=== PATIENT | male | born 1970 | race Caucasian/White ===

== ENCOUNTER 2021-07-31 01:55 | Emergency (ER) | payer OTHER ==
[2021-07-31 02:03] VITALS: TEMP 99.4
[2021-07-31 02:42] LABS: Basophils % (A) 0 %; Eosinophils % (A) 0 %; HCT 38.6 % (39.0-53.0); HGB 14.3 gm/dL (13.0-17.5); Hyperchromasia Slight; Lymphocytes # (A) 0.4 k/uL (1.0-4.8); Lymphocytes % (A) 20 %; MCHC 36.9 g/dL (31.0-37.0); MCV 91.9 fL (80.0-100.0); Mean Platelet Volume 7.3; Monocytes # (A) 0.1 k/uL (0-1.0); Monocytes % (A) 5 %; Neutrophils # (A) 1.5 k/uL (1.3-7.7); Neutrophils % (A) 73 %; RDW 12.4 % (11.5-15.5)
--- NOTE | 2021-07-31 02:43 | ED ---
Chest Pain HPI - General Chief Complaint: Chest Pain Stated Complaint: Chest tightness Time Seen by Provider: 07/31/21 02:02 Source: patient, RN notes reviewed, old records reviewed Mode of arrival: ambulatory - History of Present Illness Initial Comments: This is a 50-year-old male to the emergency room today. Patient presents today for evaluation regards to chest pain. Chest pain anterior chest 3 days radiating to back. No known travel history or sick contacts. No fevers cough or congestion. No other complaints no prior history of chest pain, patient does have history of high blood pressure. MD Complaint: chest pain -: days(s) (3) Pain Location: substernal Pain Radiation: back Severity: moderate Severity scale (1-10): 4 Quality: tightness, aching Improves With: nothing Worsens With: nothing Anginal Symptoms: nausea, dyspnea Other Symptoms: palpitations Treatments Prior to Arrival: none - Related Data Home Medications Medication Instructions Recorded Confirmed Ascorbic Acid [Vitamin C] 1,000 mg PO DAILY 08/02/21 08/02/21 Echinacea 500 mg PO DAILY 08/02/21 08/02/21 Multivit-Min/FA/Lycopen/Lutein 1 tab PO DAILY 08/02/21 08/02/21 [Centrum Silver Men Tablet] Zinc 50 mg PO DAILY 08/02/21 08/02/21 Allergies Allergy/AdvReac Type Severity Reaction Status Date / Time No Known Allergies Allergy Verified 08/02/21 18:19 Review of Systems ROS Statement: Those systems with pertinent positive or pertinent negative responses have been documented in the HPI. ROS Other: All systems not noted in ROS Statement are negative. EKG Findings - EKG Comments: EKG Findings:: EKG shows sinus rhythm 85 FL 170 QRS 96 QTc 426 Past Medical History Past Medical History: Hypertension History of Any Multi-Drug Resistant Organisms: None Reported Past Surgical History: No Surgical Hx Reported Past Psychological History: No Psychological Hx Reported Smoking Status: Never smoker Past Alcohol Use History: Occasional Past Drug Use History: None Reported General Exam General appearance: alert, in no apparent distress Head exam: Present: atraumatic, normocephalic, normal inspection Eye exam: Present: normal appearance, PERRL, EOMI. Absent: scleral icterus, conjunctival injection, periorbital swelling ENT exam: Present: normal exam, mucous membranes moist Neck exam: Present: normal inspection. Absent: tenderness, meningismus, lymphadenopathy Respiratory exam: Present: normal lung sounds bilaterally. Absent: respiratory distress, wheezes, rales, rhonchi, stridor Cardiovascular Exam: Present: regular rate, normal rhythm, normal heart sounds. Absent: systolic murmur, diastolic murmur, rubs, gallop, clicks GI/Abdominal exam: Present: soft, normal bowel sounds. Absent: distended, tenderness, guarding, rebound, rigid Extremities exam: Present: normal inspection, full ROM, normal capillary refill. Absent: tenderness, pedal edema, joint swelling, calf tenderness Back exam: Present: normal inspection Neurological exam: Present: alert, oriented X3, CN II-XII intact Psychiatric exam: Present: normal affect, normal mood Skin exam: Present: warm, dry, intact, normal color. Absent: rash Course Vital Signs 07/31/21 07/31/21 07/31/21 01:57 02:40 04:26 Temperature 99.4 F Pulse Rate 87 73 72 Respiratory 20 16 16 Rate Blood Pressure 143/89 128/60 O2 Sat by Pulse 96 97 97 Oximetry - Reevaluation(s) Reevaluation #1: 07/31/21 02:43 Medical record is reviewed Reevaluation #2: Patient symptoms are significantly improved in the emergency department Patient informed results and questions answered Chest Pain MDM - MDM 50 male with atypical chest pain mild pancreatitis with no abdominal pain. Patient is able to tolerate liquids and fluids here in the ER and can be discharged home Disposition Clinical Impression: Atypical chest pain, Pancreatitis, Hyponatremia Disposition: HOME SELF-CARE Condition: Good Instructions (If sedation given, give patient instructions): Chest Pain (ED), Pancreatitis (ED), Hyponatremia (ED) Is patient prescribed a controlled substance at d/c from ED?: No Referrals: None,Stated [Primary Care Provider] - 1-2 days
[2021-07-31 02:44] VITALS: BP 128/60; RESP 16
[2021-07-31 02:48] LABS: INR 0.9 (<1.2); Partial Thromboplastin Time 25.6 sec (22.0-30.0); Prothrombin Time 10.1 sec (9.0-12.0)
[2021-07-31 02:50] LABS: ALT 74 U/L (4-49); AST 87 U/L (17-59); African American GFR (CKD) >90 (>60 ml/min/1.73 sqM); Albumin 4.3 g/dL (3.5-5.0); Alkaline Phosphatase 43 U/L (38-126); Anion Gap 10 mmol/L; Blood Urea Nitrogen 12 mg/dL (9-20); Calcium 9.2 mg/dL (8.4-10.2); Carbon Dioxide 21 mmol/L (22-30); Chloride 95 mmol/L (98-107); Glucose 126 mg/dL (74-99); Magnesium 1.7 mg/dL (1.6-2.3); Non-African American GFR(CKD) >90 (>60 ml/min/1.73 sqM); Potassium 3.8 mmol/L (3.5-5.1); Sodium 126 mmol/L (137-145); Total Bilirubin 0.4 mg/dL (0.2-1.3); Total Protein 6.9 g/dL (6.3-8.2)
--- NOTE | 2021-07-31 03:00 | XR ---
EXAMINATION TYPE: XR chest 2V DATE OF EXAM: 07/31/2021 COMPARISON: NONE HISTORY: Chest pain TECHNIQUE: FINDINGS: There is some mild interstitial infiltrate left lower lobe. Right lung is clear. Heart and mediastinum are normal. Diaphragm is normal. There are chest leads. Bony thorax is intact. IMPRESSION: Mild left lower lobe interstitial pneumonia.
[2021-07-31 03:14] LABS: Platelet Count 86 k/uL (150-450)
--- NOTE | 2021-07-31 03:51 | CT ---
EXAMINATION TYPE: CT angio chest DATE OF EXAM: 07/31/2021 COMPARISON: None HISTORY: chest pain. r/o PE CT DLP: 651.8 mGycm Automated exposure control for dose reduction was used. CONTRAST: Performed with IV Contrast, patient injected with 100ml mL of Isovue 370. There are 3-D post processed images. There is some patchy mild groundglass interstitial infiltrate in both lungs. There is no mediastinal adenopathy. There are no hilar masses. Thoracic aorta is intact. There is no aneurysm or dissection. There is normal contrast opacification of the pulmonary arteries. Heart size is normal. There is no p ericardial effusion. There is no pleural effusion. The bony thorax is intact. IMPRESSION: Patchy bilateral groundglass pulmonary interstitial infiltrates. No evidence of pulmonary embolism. N o suspicious pulmonary mass.
[2021-07-31 04:27] VITALS: PULSE 72
== END 2021-07-31 04:27 | disposition home or self-care (01) ==
LOC: EC 01:55
DX: K85.90 Acute pancreatitis without necrosis or infection, unspecified (principal); E87.1 Hypo-osmolality and hyponatremia; I10 Essential (primary) hypertension; R07.89 Other chest pain; R07.2 Precordial pain; R06.00 Dyspnea, unspecified; R00.2 Palpitations
CPT/HCPCS: 36415; 93005; 85379; 80053; 83690; 83735; 84484; 85025; 85610; 85730; 71046; 71275; 99285; Q9967

== ENCOUNTER 2021-08-02 16:50 | Inpatient (IN) | payer OTHER ==
[2021-08-02] MEDS: ACETAMINOPHEN TAB 325 MG TAB PO PRN ×2 (17:41→21:22)
[2021-08-02 17:42] LABS: Basophils % (A) 0 %; Eosinophils % (A) 1 %; HCT 39.2 % (39.0-53.0); HGB 14.2 gm/dL (13.0-17.5); Hyperchromasia Slight; Lymphocytes # (A) 0.3 k/uL (1.0-4.8); Lymphocytes % (A) 12 %; MCH 32.3 pg (25.0-35.0); MCHC 36.4 g/dL (31.0-37.0); MCV 88.9 fL (80.0-100.0); Mean Platelet Volume 7.3; Monocytes # (A) 0.1 k/uL (0-1.0); Monocytes % (A) 6 %; Neutrophils # (A) 2.1 k/uL (1.3-7.7); Neutrophils % (A) 80 %; Platelet Count 127 k/uL (150-450); RDW 11.5 % (11.5-15.5); WBC 2.6 k/uL (3.8-10.6)
[2021-08-02 17:55] LABS: ALT 82 U/L (4-49); AST 106 U/L (17-59); African American GFR (CKD) >90 (>60 ml/min/1.73 sqM); Albumin 4.3 g/dL (3.5-5.0); Alkaline Phosphatase 37 U/L (38-126); Anion Gap 14 mmol/L; Blood Urea Nitrogen 14 mg/dL (9-20); C Reactive Protein 8.3 mg/dL (<1.0); Calcium 8.6 mg/dL (8.4-10.2); Carbon Dioxide 19 mmol/L (22-30); Chloride 93 mmol/L (98-107); Glucose 115 mg/dL (74-99); INR 0.9 (<1.2); LDH 1240 U/L (313-618); Magnesium 2.2 mg/dL (1.6-2.3); Non-African American GFR(CKD) >90 (>60 ml/min/1.73 sqM); Partial Thromboplastin Time 25.4 sec (22.0-30.0); Potassium 3.6 mmol/L (3.5-5.1); Prothrombin Time 9.9 sec (9.0-12.0); Sodium 126 mmol/L (137-145); Total Bilirubin 0.7 mg/dL (0.2-1.3); Total Protein 7.2 g/dL (6.3-8.2)
--- NOTE | 2021-08-02 18:14 | XR ---
EXAMINATION TYPE: XR chest 1V portable DATE OF EXAM: 08/02/2021 COMPARISON: Radiograph 07/31/2021 HISTORY: Suspected COVID pneumonia. TECHNIQUE: Single frontal view of the chest is obtained. FINDINGS: The cardiomediastinal silhouette and pulmonary vasculature are within normal limits. Low lung volumes with bibasilar, left greater than right airspace opacities with air bronchograms. No large effusion or pneumothorax. IMPRESSION: Low lung volumes with bibasilar opacities which are likely on the basis of airspace dise ase.
[2021-08-02] MEDS: DEXAMETHASONE SOD PHOSPHATE 10 MG/ML 1 ML VIAL IVP SCH (18:15)
[2021-08-02] MEDS ORDERED: NALOXONE 0.4 MG/ML 1 ML VIAL IV PRN (18:28)
--- NOTE | 2021-08-02 18:36 | ED ---
General Adult HPI - General Chief complaint: Shortness of Breath Stated complaint: lOW O2 Time Seen by Provider: 08/02/21 17:13 Source: patient, RN notes reviewed, old records reviewed Mode of arrival: EMS Limitations: no limitations - History of Present Illness Initial comments: Patient is a 50-year-old male with past medical history that is unremarkable who presents emergency Department complaining of difficulty in breathing. Patient was seen at urgent care initially for cough and diarrhea and general malaise. Saturations were 86% on room air and he was instructed to come to the emergency department for evaluation. He believes he had exposure to COVID-19 last week and has been having symptoms for multiple days, however they are acutely wors ened. States initially that she is having diarrhea. He had minimal upper respiratory involvement including a dry cough at this time, as well as nasal congestion. Denies any difficulty in breathing, chest pain, abdominal pain, nausea. States he's been having nonbloody diarrhea. Patient was not vaccinated for COVID-19. I evaluated the patient when he was placed in a room.Patient is complaining of generalized fatigue as well as joint pain. - Related Data Home Medications Medication Instructions Recorded Confirmed Ascorbic Acid [Vitamin C] 1,000 mg PO DAILY 08/02/21 08/02/21 Echinacea 500 mg PO DAILY 08/02/21 08/02/21 Multivit-Min/FA/Lycopen/Lutein 1 tab PO DAILY 08/02/21 08/02/21 [Centrum Silver Men Tablet] Zinc 50 mg PO DAILY 08/02/21 08/02/21 Allergies Allergy/AdvReac Type Severity Reaction Status Date / Time No Known Allergies Allergy Verified 08/02/21 18:19 Review of Systems ROS Statement: Those systems with pertinent positive or pertinent negative responses have been documented in the HPI. Review of Systems: CONST: Denies fever EYES: Denies blurry vision ENT: Endorses nasal congestion C/V: Denies Chest pain RESP: Denies shortness of breath GI: Denies abdominal pain : Denies dysuria SKIN: Denies rash. MSK: Endorses joint pain. NEURO: Denies headache ROS Other: All systems not noted in ROS Statement are negative. Past Medical History Past Medical History: Hypertension History of Any Multi-Drug Resistant Organisms: None Reported Past Surgical History: No Surgical Hx Reported Past Psychological History: No Psychological Hx Reported Smoking Status: Never smoker Past Alcohol Use History: Occasional Past Drug Use History: None Reported General Exam - General Exam Comments Initial Comments: General: Patient is febrile. No acute respiratory distress. HEAD: Normal with no signs of head trauma. EYES: PERRLA, EOMI, conjunctiva normal, no discharge. ENT: Hearing grossly intact, normal oropharynx. RESPIRATORY: Relatively clear breath sounds bilaterally. No increased work of breathing. Patient is hypoxic on room air. C/V: Regular rate and rhythm. S1 and S2 auscultated, no edema, peripheral pulses 2+ and intact throughout ABD: Abd is soft, nontender, nondistended EXT: Normal range of motion, no obvious deformity SKIN: No rashes or lesions observed on exposed skin. NEURO: Alert and oriented 4. Limitations: no limitations Course Vital Signs 08/02/21 08/02/21 08/02/21 17:07 17:12 19:11 Temperature 100.8 F H 100.5 F H Pulse Rate 90 70 Respiratory 16 18 Rate Blood Pressure 134/81 154/75 O2 Sat by Pulse 87 L 93 L 95 Oximetry 08/02/21 20:11 Temperature 100.4 F H Pulse Rate 72 Respiratory 20 Rate Blood Pressure 134/84 O2 Sat by Pulse 95 Oximetry Medical Decision Making - Medical Decision Making Some patient's presentation and physical exam, I'm concerned for new onset pneumonia and the patient. This includes COVID-19 pneumonia. Therefore we will obtain a Covid swab in addition to COVID-19 labs. He'll be started and placed on nasal cannula oxygen, and on 4 L patient's oxygen level is now 93%. He'll be given Tylenol for his fever. Patient was in agreement this plan. Covid swab is positive. Patient was started on Decadron 6 mg twice a day. Laboratory studies are remarkable for a lymphopenia and leukopenia with a white blood cell count 2.6 and lymphocyte, 0.3. Patient has a hyponatremia of 126 and hypochloremia of 93. LDH is elevated to 1240. Troponin is negative. CRP is elevated to 8. Chest x-ray is remarkable for low lung volumes with bibasilar opacities likely representing the COVID-19 pneumonia. D-dimer is within normal limits. Patient will be administered a small fluid bolus due to mild dehydration. I u pdated him on the results of his imaging and laboratory studies. He is aware his Covid-positive. Isolation precautions were placed. He requires admission to the hospital. Infectious disease and pulmonology are consulted. He was in agreement with this plan. I spoke with the admitting physician, Dr. May who accepted the patient. Patient was admitted and serous condition to telemetry bed. - Lab Data Result diagrams: 08/02/21 17:30 08/02/21 17:30 Lab Results 08/02/21 08/02/21 08/02/21 Range/Units 17:18 17:30 17:30 WBC 2.6 L (3.8-10.6) k/uL RBC 4.40 (4.30-5.90) m/uL Hgb 14.2 (13.0-17.5) gm/dL Hct 39.2 (39.0-53.0) % MCV 88.9 (80.0-100.0) fL MCH 32.3 (25.0-35.0) pg MCHC 36.4 (31.0-37.0) g/dL RDW 11.5 (11.5-15.5) % Plt Count 127 L (150-450) k/uL MPV 7.3 Neutrophils % 80 % Lymphocytes % 12 % Monocytes % 6 % Eosinophils % 1 % Basophils % 0 % Neutrophils # 2.1 (1.3-7.7) k/uL Lymphocytes # 0.3 L (1.0-4.8) k/uL Monocytes # 0.1 (0-1.0) k/uL Eosinophils # 0.0 (0-0.7) k/uL Basophils # 0.0 (0-0.2) k/uL Hyperchromasia Slight PT 9.9 (9.0-12.0) sec INR 0.9 (<1.2) APTT 25.4 (22.0-30.0) sec D-Dimer 0.52 (<0.60) mg/L FEU Sodium (137-145) mmol/L Potassium (3.5-5.1) mmol/L Chloride (98-107) mmol/L Carbon Dioxide (22-30) mmol/L Anion Gap mmol/L BUN (9-20) mg/dL Creatinine (0.66-1.25) mg/dL Est GFR (CKD-EPI)AfAm (>60 ml/min/1.73 sqM) Est GFR (CKD-EPI)NonAf (>60 ml/min/1.73 sqM) Glucose (74-99) mg/dL Plasma Lactic Acid Elvin (0.7-2.0) mmol/L Calcium (8.4-10.2) mg/dL Magnesium (1.6-2.3) mg/dL Total Bilirubin (0.2-1.3) mg/dL AST (17-59) U/L ALT (4-49) U/L Alkaline Phosphatase (38-126) U/L Lactate Dehydrogenase (313-618) U/L Troponin I (0.000-0.034) ng/mL C-Reactive Protein (<1.0) mg/dL Total Protein (6.3-8.2) g/dL Albumin (3.5-5.0) g/dL Coronavirus (PCR) Detected A (Not Detectd) 08/02/21 08/02/21 08/02/21 Range/Units 17:30 17:30 17:30 WBC (3.8-10.6) k/uL RBC (4.30-5.90) m/uL Hgb (13.0-17.5) gm/dL Hct (39.0-53.0) % MCV (80.0-100.0) fL MCH (25.0-35.0) pg MCHC (31.0-37.0) g/dL RDW (11.5-15.5) % Plt Count (150-450) k/uL MPV Neutrophils % % Lymphocytes % % Monocytes % % Eosinophils % % Basophils % % Neutrophils # (1.3-7.7) k/uL Lymphocytes # (1.0-4.8) k/uL Monocytes # (0-1.0) k/uL Eosinophils # (0-0.7) k/uL Basophils # (0-0.2) k/uL Hyperchromasia PT (9.0-12.0) sec INR (<1.2) APTT (22.0-30.0) sec D-Dimer (<0.60) mg/L FEU Sodium 126 L (137-145) mmol/L Potassium 3.6 (3.5-5.1) mmol/L Chloride 93 L (98-107) mmol/L Carbon Dioxide 19 L (22-30) mmol/L Anion Gap 14 mmol/L BUN 14 (9-20) mg/dL Creatinine 0.85 (0.66-1.25) mg/dL Est GFR (CKD-EPI)AfAm >90 (>60 ml/min/1.73 sqM) Est GFR (CKD-EPI)NonAf >90 (>60 ml/min/1.73 sqM) Glucose 115 H (74-99) mg/dL Plasma Lactic Acid Elvin 1.0 (0.7-2.0) mmol/L Calcium 8.6 (8.4-10.2) mg/dL Magnesium 2.2 (1.6-2.3) mg/dL Total Bilirubin 0.7 (0.2-1.3) mg/dL AST 106 H (17-59) U/L ALT 82 H (4-49) U/L Alkaline Phosphatase 37 L (38-126) U/L Lactate Dehydrogenase 1240 H (313-618) U/L Troponin I <0.012 (0.000-0.034) ng/mL C-Reactive Protein 8.3 H (<1.0) mg/dL Total Protein 7.2 (6.3-8.2) g/dL Albumin 4.3 (3.5-5.0) g/dL Coronavirus (PCR) (Not Detectd) - EKG Data -: EKG Interpreted by Me EKG Comments: 12-lead Electrocardiogram Interpretation Note EKG was reviewed and interpreted by myself. 12-lead ECG performed at 1757 is interpreted by me as revealing normal sinus rhythm at a rate of 75 beats per minute. [place] is normal. [place] interval is 176 ms, QRS duration is 104 ms, QTc is 437 ms.. There were no ST or T wave abnormalities to suggest myocardial ischemia or injury. R wave progression across the precordium was satisfactory. By my interpretation this EKG is non-diagnostic for acute ischemia. Disposition Clinical Impression: Pneumonia due to COVID-19 virus, Febrile illness, Diarrhea, Acute respiratory failure with hypoxia, Dehydration Disposition: ADMITTED IP TO THIS HOSP Condition: Serious
[2021-08-02] MEDS: ENOXAPARIN 40 MG/0.4 ML SYRINGE SQ SCH (19:21)
[2021-08-02] MEDS ORDERED: SODIUM CHLORIDE 0.9% 500 ML 500 ML IV ONE (21:00)
[2021-08-03] MEDS: ENOXAPARIN 40 MG/0.4 ML SYRINGE SQ SCH (08:14)
[2021-08-03] MEDS: ASCORBIC ACID 500 MG TAB PO SCH (08:14)
[2021-08-03] MEDS: MULTIVITAMINS, THERA 1 EACH TAB PO SCH (08:14)
[2021-08-03] MEDS: FAMOTIDINE 20 MG TAB PO SCH (08:14)
[2021-08-03] MEDS: ZINC SULFATE 220 MG CAP PO SCH (08:14)
[2021-08-03] MEDS: DEXAMETHASONE SOD PHOSPHATE 10 MG/ML 1 ML VIAL IVP SCH ×2 (08:14→21:29)
[2021-08-03] MEDS: ALBUTEROL HFA INHALER INHALATION PRN ×3 (08:15→15:27)
[2021-08-03 09:20] LABS: HCT 40.9 % (39.6-50.0); HGB 14.3 g/dL (13.0-17.0); MCH 32.6 pg (27.0-32.0); MCV 93.2 fL (80.0-97.0); Mean Platelet Volume 9.8 fL (9.5-12.2); Platelet Count 131 X 10*3/uL (140-440); RBC 4.39 X 10*6/uL (4.40-5.60); RDW 11.9 % (11.5-14.5)
[2021-08-03 10:51] LABS: Basophils # (A) 0.01 X 10*3/uL (0.00-0.10); Basophils % (A) 0.5 %; Eosinophils # (A) 0 X 10*3/uL (0.04-0.35); Eosinophils % (A) 0 %; Lymphocytes # (A) 0.43 X 10*3/uL (0.90-5.00); Lymphocytes % (A) 19.5 %; Monocytes # (A) 0.17 X 10*3/uL (0.20-1.00); Monocytes % (A) 7.7 %; Neutrophils # (A) 1.58 X 10*3/uL (1.80-7.70); Neutrophils % (A) 71.8 %
--- NOTE | 2021-08-03 14:30 | P.HPIM ---
History of Present Illness 50-year-old male came in with the complaints of diarrhea which started about 4-5 days ago. Patient denied any significant fever patient doesn't have any fever here. Patient is found to be hypoxic and patient is presently on 7 L of oxygen. Patient is also found to be hyponatremic from diarrhea. Patient is found to have positive COVID-19 PCR. Patient d-dimer is 0.5 to does have elevated inflammatory markers along with elevated liver enzymes. REVIEW OF SYSTEMS: CONSTITUTIONAL: No fever, no malaise, no fatigue. HEENT: No recent visual problems or hearing problems. Denied any sore throat. CARDIOVASCULAR: No chest pain, orthopnea, PND, no palpitations, no syncope. PULMONARY: No shortness of breath, no cough, no hemoptysis. GASTROINTESTINAL: As mentioned in HPI NEUROLOGICAL: No headaches, no weakness, no numbness. HEMATOLOGICAL: Denies any bleeding or petechiae. GENITOURINARY: Denies any burning micturition, frequency, or urgency. MUSCULOSKELETAL/RHEUMATOLOGICAL: Denies any joint pain, swelling, or any muscle pain. ENDOCRINE: Denies any polyuria or polydipsia. The rest of the 14-point review of systems is negative. PHYSICAL EXAMINATION: GENERAL: The patient is alert and oriented x3, not in any acute distress. Well developed, well nourished. HEENT: Pupils are round and equally reacting to light. EOMI. No scleral icterus. No conjunctival pallor. Normocephalic, atraumatic. No pharyngeal erythema. No thyromegaly. CARDIOVASCULAR: S1 and S2 present. No murmurs, rubs, or gallops. PULMONARY: Chest is clear to auscultation, no wheezing or crackles. ABDOMEN: Soft, nontender, nondistended, normoactive bowel sounds. No palpable organomegaly. MUSCULOSKELETAL: No joint swelling or deformity. EXTREMITIES: No cyanosis, clubbing, or pedal edema. NEUROLOGICAL: Gross neurological examination did not reveal any focal deficits. SKIN: No rashes. Assessment and plan -COVID-19 pneumonia and acute hypoxic respiratory failure secondary to COVID-19 pneumonia -Diarrhea secondary to COVID-19 infection: Patient will continue on Decadron, vitamins. -Hyponatremia hypervolemic hyponatremia secondary to diarrhea -Elevated liver enzymes secondary to systemic inflammatory response from COVID- 19 we'll repeat liver enzymes again tomorrow DVT prophylaxis: Mary[place] Past Medical History Past Medical History: Hypertension History of Any Multi-Drug Resistant Organisms: None Reported Past Surgical History: No Surgical Hx Reported Past Psychological History: No Psychological Hx Reported Smoking Status: Never smoker Past Alcohol Use History: Occasional Past Drug Use History: None Reported Medications and Allergies Home Medications Medication Instructions Recorded Confirmed Type Ascorbic Acid [Vitamin C] 1,000 mg PO DAILY 08/02/21 08/02/21 History Echinacea 500 mg PO DAILY 08/02/21 08/02/21 History Multivit-Min/FA/Lycopen/Lutein 1 tab PO DAILY 08/02/21 08/02/21 History [Centrum Silver Men Tablet] Zinc 50 mg PO DAILY 08/02/21 08/02/21 History Allergies Allergy/AdvReac Type Severity Reaction Status Date / Time No Known Allergies Allergy Verified 08/02/21 18:19 Physical Exam Vitals: Vital Signs Temp Pulse Resp BP Pulse Ox 08/03/21 12:32 89 L 08/03/21 11:44 97.3 F L 84 20 121/75 87 L 08/03/21 08:15 97.6 F 73 18 134/80 92 L 08/03/21 02:46 60 18 95 08/03/21 00:39 97.6 F 58 L 18 118/81 97 08/02/21 22:23 97.7 F 74 18 96 08/02/21 21:23 71 18 96 08/02/21 20:11 100.4 F H 72 20 134/84 95 08/02/21 19:11 100.5 F H 70 18 154/75 95 08/02/21 17:12 93 L 08/02/21 17:07 100.8 F H 90 16 134/81 87 L Intake and Output 08/02/21 08/03/21 08/03/21 22:59 06:59 14:59 Other: Weight 108.862 kg Results CBC & Chem 7: 08/03/21 03:58 08/02/21 17:30 Labs: Abnormal Lab Results - Last 24 Hours (Table) 08/02/21 08/02/21 08/02/21 Range/Units 17:18 17:30 17:30 WBC 2.6 L (3.8-10.6) k/uL RBC (4.40-5.60) X 10*6/uL MCH (27.0-32.0) pg Plt Count 127 L (150-450) k/uL Plt Count Comment Neutrophils # (1.80-7.70) X 10*3/uL Lymphocytes # 0.3 L (1.0-4.8) k/uL Monocytes # (0.20-1.00) X 10*3/uL Eosinophils # (0.04-0.35) X 10*3/uL Sodium 126 L (137-145) mmol/L Chloride 93 L (98-107) mmol/L Carbon Dioxide 19 L (22-30) mmol/L Glucose 115 H (74-99) mg/dL Ferritin 1651.0 H (22.0-322.0) ng/mL AST 106 H (17-59) U/L ALT 82 H (4-49) U/L Alkaline Phosphatase 37 L (38-126) U/L Lactate Dehydrogenase 1240 H (313-618) U/L C-Reactive Protein 8.3 H (<1.0) mg/dL Procalcitonin (0.02-0.09) ng/mL Coronavirus (PCR) Detected A (Not Detectd) 08/02/21 08/03/21 Range/Units 17:30 03:58 WBC 2.20 L (3.8-10.6) k/uL RBC 4.39 L (4.40-5.60) X 10*6/uL MCH 32.6 H (27.0-32.0) pg Plt Count 131 L (150-450) k/uL Plt Count Comment DECREASED A Neutrophils # 1.58 L (1.80-7.70) X 10*3/uL Lymphocytes # 0.43 L (1.0-4.8) k/uL Monocytes # 0.17 L (0.20-1.00) X 10*3/uL Eosinophils # 0 L (0.04-0.35) X 10*3/uL Sodium (137-145) mmol/L Chloride (98-107) mmol/L Carbon Dioxide (22-30) mmol/L Glucose (74-99) mg/dL Ferritin (22.0-322.0) ng/mL AST (17-59) U/L ALT (4-49) U/L Alkaline Phosphatase (38-126) U/L Lactate Dehydrogenase (313-618) U/L C-Reactive Protein (<1.0) mg/dL Procalcitonin 0.13 H (0.02-0.09) ng/mL Coronavirus (PCR) (Not Detectd)
[2021-08-03] MEDS: SODIUM CHLORIDE 0.9% 1,000 ML IV SCH (14:44)
--- NOTE | 2021-08-03 15:04 | P.CNPUL ---
History of Present Illness Consult date: 08/03/21 Reason for consult: dyspnea, cough History of present illness: Pleasant 50-year-old male patient with known history of hypertension otherwise negative medical history, started getting sick approximately 5 days ago. Around , the patient started having GI symptoms of diarrhea and he was unable to keep anything him. The patient became progressively more weak and lethargic and in the same time he started developing shortness of breath. He went to an outpatient clinic with the patient was found to be hypoxic and he was directed to us for further care. The patient immediately checked positive for COVID 19. He is not vaccinated. His white cell count is at 2.2 with a hemoglobin of 14.3 with a platelet count of 131. His sodium was at 126 consistent with his underlying diarrhea. He had a component of non-anion gap metabolic acidosis secondary to diarrhea and his serum bicarb was at 19. LDH level was 1651 and he did have some mild transaminitis. Troponins are negative. Pro-calcitonin level was 0.1 and a CRP level is at 8.3. The patient was started on Decadron. The patient was also started on IV fluids. He is also on Decadron for DVT prophylaxis. Currently is on 7 L of oxygen by nasal cannula. Note that he started off with 4 L and his oxygen requirements progressed and currently is on 7 L. No altered mentation. Review of Systems Constitutional: Reports fatigue, Reports weakness Eyes: denies as per HPI, denies blurred vision, denies bulging eye, denies decreased vision, denies diplopia, denies discharge, denies dry eye, denies irritation, denies itching, denies pain, denies photophobia, denies loss of peripheral vision, denies loss of vision, denies tunnel vision/blind spots Ears: deny: decreased hearing, ear discharge, earache, tinnitus Ears, nose, mouth and throat: Reports as per HPI Breasts: absent: as per HPI, gynecomastia Cardiovascular: Reports decreased exercise tolerance, Reports dyspnea on exertion Respiratory: Reports cough, Reports dyspnea Gastrointestinal: Reports diarrhea, Reports nausea Genitourinary: Reports as per HPI Musculoskeletal: Reports as per HPI, Reports muscle weakness Musculoskeletal: absent: ankle pain, ankle stiffness, ankle swelling, as per HPI, elbow pain, elbow stiffness, elbow swelling, foot pain, foot stiffness, foot swelling, hand pain, hand stiffness, hand swelling, hip pain, hip stiffness, hip swelling, knee pain, knee stiffness, knee swelling, shoulder pain, shoulder stiffness, shoulder swelling, wrist pain, wrist stiffness, wrist swelling Integumentary: Reports as per HPI Neurological: Reports as per HPI Psychiatric: Reports as per HPI Endocrine: Reports as per HPI Hematologic/Lymphatic: Reports as per HPI Allergic/Immunologic: Reports as per HPI Past Medical History Past Medical History: Hypertension History of Any Multi-Drug Resistant Organisms: None Reported Past Surgical History: No Surgical Hx Reported Past Psychological History: No Psychological Hx Reported Smoking Status: Never smoker Past Alcohol Use History: Occasional Past Drug Use History: None Reported Medications and Allergies Home Medications Medication Instructions Recorded Confirmed Type Ascorbic Acid [Vitamin C] 1,000 mg PO DAILY 08/02/21 08/02/21 History Echinacea 500 mg PO DAILY 08/02/21 08/02/21 History Multivit-Min/FA/Lycopen/Lutein 1 tab PO DAILY 08/02/21 08/02/21 History [Centrum Silver Men Tablet] Zinc 50 mg PO DAILY 08/02/21 08/02/21 History Allergies Allergy/AdvReac Type Severity Reaction Status Date / Time No Known Allergies Allergy Verified 08/02/21 18:19 Physical Exam Vitals: Vital Signs Temp Pulse Resp BP Pulse Ox 08/03/21 12:32 89 L 08/03/21 11:44 97.3 F L 84 20 121/75 87 L 08/03/21 08:15 97.6 F 73 18 134/80 92 L 08/03/21 02:46 60 18 95 08/03/21 00:39 97.6 F 58 L 18 118/81 97 08/02/21 22:23 97.7 F 74 18 96 08/02/21 21:23 71 18 96 08/02/21 20:11 100.4 F H 72 20 134/84 95 08/02/21 19:11 100.5 F H 70 18 154/75 95 08/02/21 17:12 93 L 08/02/21 17:07 100.8 F H 90 16 134/81 87 L Intake and Output 08/02/21 08/03/21 08/03/21 22:59 06:59 14:59 Other: Weight 108.862 kg GENERAL: The patient is alert and oriented x3, not in any acute distress. Well developed, well nourished. HEENT: Pupils are round and equally reacting to light. EOMI. No scleral icterus. No conjunctival pallor. Normocephalic, atraumatic. No pharyngeal erythema. No thyromegaly. CARDIOVASCULAR: S1 and S2 present. No murmurs, rubs, or gallops. PULMONARY: Chest is clear to auscultation, the patient has crackles in the lung bases bilaterally ABDOMEN: Soft, nontender, nondistended, normoactive bowel sounds. No palpable organomegaly. MUSCULOSKELETAL: No joint swelling or deformity. EXTREMITIES: No cyanosis, clubbing, or pedal edema. NEUROLOGICAL: Gross neurological examination did not reveal any focal deficits. SKIN: No rashes. Results - Laboratory Findings CBC and BMP: 08/03/21 03:58 08/02/21 17:30 PT/INR, D-dimer PT 9.9 sec (9.0-12.0) 08/02/21 17:30 INR 0.9 (<1.2) 08/02/21 17:30 D-Dimer 0.52 mg/L FEU (<0.60) 08/02/21 17:30 Abnormal lab findings: Abnormal Labs 08/02/21 08/02/21 08/02/21 17:18 17:30 17:30 WBC 2.6 L RBC MCH Plt Count 127 L Plt Count Comment Neutrophils # Lymphocytes # 0.3 L Monocytes # Eosinophils # Sodium 126 L Chloride 93 L Carbon Dioxide 19 L Glucose 115 H Ferritin 1651.0 H AST 106 H ALT 82 H Alkaline Phosphatase 37 L Lactate Dehydrogenase 1240 H C-Reactive Protein 8.3 H Procalcitonin Coronavirus (PCR) Detected A 08/02/21 08/03/21 17:30 03:58 WBC 2.20 L RBC 4.39 L MCH 32.6 H Plt Count 131 L Plt Count Comment DECREASED A Neutrophils # 1.58 L Lymphocytes # 0.43 L Monocytes # 0.17 L Eosinophils # 0 L Sodium Chloride Carbon Dioxide Glucose Ferritin AST ALT Alkaline Phosphatase Lactate Dehydrogenase C-Reactive Protein Procalcitonin 0.13 H Coronavirus (PCR) - Diagnostic Findings Chest x-ray: image reviewed Assessment and Plan Plan: 1 acute COVID 19 related pneumonia. The patient has bilateral pulmonary infiltrates and the patient has crackles in the mid and lower lung is bilaterally and the patient is currently on 7 L of oxygen by nasal cannula. Symptoms started less than a week ago and the patient progressed rather rapidly. The patient's initial symptoms were mainly GI related as the patient presented with diarrhea and it seems that the diarrhea is subsiding at this point in time. 2 acute hypoxic respiratory failure currently on 7 L 3 acute diarrhea, improving and this is related to COVID 19 499 gap metabolic acidosis secondary to diarrhea 5 acute hypovolemic hyponatremia secondary to diarrhea 6 leukopenia and thrombocytopenia, likely related to COVID 19 infection. 7 hypertension Plan Admit this patient to the hospital Titrated oxygen flow currently on 7 L to maintain a saturation above 90% Continue Decadron 6 mg IV every 12 hours Start the patient out of the city per protocol as the patient falls within the window and he seems to be a good candidate for the treatment Put the patient on multivitamins tailored to COVID 19 Start the patient on Lovenox 40 mg subcu daily We'll continue to follow make further recommendations based on his progress.
[2021-08-03] MEDS: CHOLECALCIFEROL 25 MCG (1000 IU) TABLET PO SCH (15:53)
[2021-08-03] MEDS ORDERED: REMDESIVIR 200 MG in SODIUM CHLORIDE 0.9% 250 ML IVPB ONE (18:00)
[2021-08-04] MEDS: SODIUM CHLORIDE 0.9% 1,000 ML IV SCH ×3 (00:20→23:05)
[2021-08-04] MEDS: ALBUTEROL HFA INHALER INHALATION PRN ×2 (07:34→11:56)
[2021-08-04] MEDS: CHOLECALCIFEROL 25 MCG (1000 IU) TABLET PO SCH (09:05)
[2021-08-04] MEDS: MULTIVITAMINS, THERA 1 EACH TAB PO SCH (09:05)
[2021-08-04] MEDS: ZINC SULFATE 220 MG CAP PO SCH (09:05)
[2021-08-04] MEDS: FAMOTIDINE 20 MG TAB PO SCH (09:05)
[2021-08-04] MEDS: DEXAMETHASONE SOD PHOSPHATE 10 MG/ML 1 ML VIAL IVP SCH ×2 (09:05→20:45)
[2021-08-04] MEDS: ENOXAPARIN 40 MG/0.4 ML SYRINGE SQ SCH (09:05)
[2021-08-04] MEDS: ASCORBIC ACID 500 MG TAB PO SCH (09:05)
[2021-08-04] MEDS: ACETAMINOPHEN TAB 325 MG TAB PO PRN (09:06)
[2021-08-04 11:46] LABS: Basophils # (A) 0.01 X 10*3/uL (0.00-0.10); Basophils % (A) 0.2 %; Eosinophils # (A) 0 X 10*3/uL (0.04-0.35); Eosinophils % (A) 0 %; HCT 40.2 % (39.6-50.0); HGB 13.5 g/dL (13.0-17.0); Lymphocytes # (A) 0.28 X 10*3/uL (0.90-5.00); MCH 31.2 pg (27.0-32.0); MCHC 33.6 g/dL (32.0-37.0); MCV 92.8 fL (80.0-97.0); Mean Platelet Volume 9.1 fL (9.5-12.2); Monocytes % (A) 3.6 %; Neutrophils # (A) 5.04 X 10*3/uL (1.80-7.70); Neutrophils % (A) 90.7 %; Platelet Count 145 X 10*3/uL (140-440); RBC 4.33 X 10*6/uL (4.40-5.60); WBC 5.56 X 10*3/uL (4.50-10.00)
[2021-08-04 11:57] LABS: African American GFR (CKD) 120.6 (60.0-200.0); Albumin 3.9 g/dL (3.8-4.9); Albumin/Globulin Ratio 1.62 (1.60-3.17); Anion Gap 13.3 mmol/L (10.00-18.00); BUN/Creat Ratio 16.35 Ratio (12.00-20.00); Blood Urea Nitrogen 12.9 mg/dL (9.0-27.0); Calcium 8.6 mg/dL (8.7-10.3); Carbon Dioxide 22.8 mmol/L (20.0-27.5); Globulin 2.4 g/dL (1.6-3.3); Potassium 4.7 mmol/L (3.5-5.5); Total Bilirubin 0.4 mg/dL (0.30-1.20); Total Protein 6.3 g/dL (6.2-8.2)
--- NOTE | 2021-08-04 15:59 | P.PN ---
Subjective Progress Note Date: 08/04/21 Pleasant 50-year-old male patient with known history of hypertension otherwise negative medical history, started getting sick approximately 5 days ago. Around , the patient started having GI symptoms of diarrhea and he was unable to keep anything him. The patient became progressively more weak and lethargic and in the same time he started developing shortness of breath. He went to an outpatient clinic with the patient was found to be hypoxic and he was directed to us for further care. The patient immediately checked positive for COVID 19. He is not vaccinated. His white cell count is at 2.2 with a hemoglobin of 14.3 with a platelet count of 131. His sodium was at 126 consistent with his underlying diarrhea. He had a component of non-anion gap metabolic acidosis secondary to diarrhea and his serum bicarb was at 19. LDH level was 1651 and he did have some mild transaminitis. Troponins are negative. Pro-calcitonin level was 0.1 and a CRP level is at 8.3. The patient was s tarted on Decadron. The patient was also started on IV fluids. He is also on Decadron for DVT prophylaxis. Currently is on 7 L of oxygen by nasal cannula. Note that he started off with 4 L and his oxygen requirements progressed and currently is on 7 L. No altered mentation. On 08/04/2021 patient seen in follow-up on medical surgical floor, he is awake and alert, in no acute distress, he is currently at 10 L of oxygen and this is an increase in his FiO2 since yesterday however clinical patient states she feels better, breathing easier, his sat on 10 L and 93%. He's been ambulating somewhat to the bathroom, tolerates activity well. No fever or chills, no chest discomfort, occasional cough, no phlegm production. He was started on Remdesivir, today's day 2 of treatment, he continues on Decadron 6 mg twice a day, and prophylactic Lovenox in addition to multivitamins. He is on point of the same at a rate of 100 mL per hour, his oral intake is good. Today's labs have been reviewed, his white count is 5.5, hemoglobin is 13.5, platelets are 145, improving, d-dimer is normal at 0.45, electrolytes and renal profile are unremarkable, his inflammatory markers are improving, his LDH is down to 495 from 1240 and yesterday's labs, and CRP is down to 8.0, his pro-calcitonin level was negative at 0.13 Objective - Vital Signs Vital signs: Vital Signs Temp 97.7 F 08/04/21 14:09 Pulse 72 08/04/21 14:09 Resp 18 08/04/21 14:09 BP 125/78 08/04/21 14:09 Pulse Ox 90 L 08/04/21 14:43 Intake & Output 08/03/21 08/04/21 08/04/21 18:59 06:59 18:59 Intake Total 300 Balance 300 Weight 108.862 kg Intake: Intake, IV Titration 300 Amount Sodium Chloride 0.9% 1, 300 000 ml @ 100 mls/hr IV . Q10H [facility] Rx#:[id number] - Exam GENERAL EXAM: Alert, very pleasant, 50-year-old white male, on 10 L of oxygen a pulse ox of 93% comfortable in no apparent distress. HEAD: Normocephalic/atraumatic. EYES: Normal reaction of pupils, equal size. Conjunctiva pink, sclera white. NOSE: Clear with pink turbinates. THROAT: No erythema or exudates. NECK: No masses, no JVD, no thyroid enlargement, no adenopathy. CHEST: No chest wall deformity. Symmetrical expansion. LUNGS: Equal air entry with bibasilar crackles CVS: Regular rate and rhythm, normal S1 and S2, no gallops, no murmurs, no rubs ABDOMEN: Soft, nontender. No hepatosplenomegaly, normal bowel sounds, no guarding or rigidity. EXTREMITIES: No clubbing, no edema, no cyanosis, 2+ pulses and upper and lower extremities. MUSCULOSKELETAL: Muscle strength and tone normal. SPINE: No scoliosis or deformity SKIN: No rashes CENTRAL NERVOUS SYSTEM: Alert and oriented -3. No focal deficits, tone is normal in all 4 extremities. PSYCHIATRIC: Alert and oriented -3. Appropriate affect. Intact judgment and insight. - Labs CBC & Chem 7: 08/04/21 05:56 08/04/21 05:56 Labs: Abnormal Lab Results - Last 24 Hours (Table) 08/04/21 08/04/21 Range/Units 05:56 05:56 RBC 4.33 L (4.40-5.60) X 10*6/uL MPV 9.1 L (9.5-12.2) fL Lymphocytes # 0.28 L (0.90-5.00) X 10*3/uL Eosinophils # 0 L (0.04-0.35) X 10*3/uL Glucose 133 H (70-110) mg/dL Calcium 8.6 L (8.7-10.3) mg/dL AST 78 H (14-35) U/L ALT 91 H (10-49) U/L Lactate Dehydrogenase 495 H (120-246) U/L C-Reactive Protein 8.00 H (0.00-0.80) mg/dL Microbiology - Last 24 Hours (Table) 08/03/21 10:00 Blood Culture - Preliminary Blood No Growth after 24 hours 08/03/21 10:15 Blood Culture - Preliminary Blood No Growth after 24 hours Assessment and Plan Plan: #1. acute COVID 19 related pneumonia. The patient has bilateral pulmonary infiltrates and the patient has crackles in the mid and lower lung is bilaterally and the patient is currently on 7 L of oxygen by nasal cannula. Symptoms started less than a week ago and the patient progressed rather rapidly. The patient's initial symptoms were mainly GI related as the patient presented with diarrhea and it seems that the diarrhea is subsiding at this point in time. patient was started on the Remdesivir on 08/03/2021 #2. acute hypoxic respiratory failure currently on 10 L #3. acute diarrhea, improving and this is related to COVID 19 #4. Anion gap metabolic acidosis secondary to diarrhea #5. acute hypovolemic hyponatremia secondary to diarrhea #6. leukopenia and thrombocytopenia, likely related to COVID 19 infection. #7. hypertensio Plan: Continue Remdesivir and today is day 2 of treatment FiO2 to 10 L, but clinically patient states he is feeling better, breathing easier He is tolerating ambulation, vital signs are stable Continues on Decadron, continues on prophylactic Lovenox, today's inflammatory markers are improving D-dimer is within normal limits Continue COVID-19 vitamins We'll continue to follow his clinical course I performed a history & physical examination of the patient and discussed their management with my nurse practitioner, Elsa Godinez. I reviewed the nurse practitioner's note and agree with the documented findings and plan of care. Lung sounds are positive for basilar rales throughout the lung meyer. The findings and the impression was discussed with the patient. I attest to the documentation by the nurse practitioner. Time with Patient: Less than 30
--- NOTE | 2021-08-04 16:49 | PN ---
PROGRESS NOTE DATE OF SERVICE: 08/04/2021 REASON FOR FOLLOW UP: Acute COVID-19 pneumonia. INTERVAL HISTORY: The patient is afebrile. The patient is breathing more comfortably. The patient's ( ). The patient denies having any chest pain. No worsening cough, no sputum production. No abdominal pain, no diarrhea. PHYSICAL EXAMINATION: Blood pressure 125/78 with a pulse of 72, temperature is 97.7. He is 94% on 12 L nasal cannula. General description is a middle-aged male lying in bed in no distress. Respiratory system: Unlabored breathing, decreased breath sounds with no wheeze. Heart S1, S2. Regular rate and rhythm. Abdomen soft, no tenderness. Extremities: No edema of the feet. LABS: Hemoglobin is 4.3, white count 5.6. D-dimer 0.45, creatinine 0.8. IMPRESSION/PLAN: Patient with acute COVID-19 pneumonia and this patient seems to have some clinical improvement with the current treatment of the Remdesivir, dexamethasone, Lovenox, zinc and ascorbic acid along with respiratory support and monitor clinical course closely. MMODL / IJN: [id number] /
[2021-08-04] MEDS: REMDESIVIR 100 MG in SODIUM CHLORIDE 0.9% 250 ML IVPB SCH (18:26)
[2021-08-04] MEDS ORDERED: ZOLPIDEM 10 MG TAB PO PRN (20:57)
--- NOTE | 2021-08-05 00:14 | P.PN ---
Subjective Progress Note Date: 08/04/21 50-year-old male came in with the complaints of diarrhea which started about 4-5 days ago. Patient denied any significant fever patient doesn't have any fever here. Patient is found to be hypoxic and patient is presently on 7 L of oxygen. Patient is also found to be hyponatremic from diarrhea. Patient is found to have positive COVID-19 PCR. Patient d-dimer is 0.5 to does have elevated inflammatory markers along with elevated liver enzymes. Patient was not vaccinated for Covid 19 08/04/2021 Patient is seen in follow up this morning maintained on 10L HF and pulmonary and ID following. Patient is receiving Remdesivir and also maintained on IV dexamethasone, lovenox, vitamin and zinc supplements and will continue. Weaning FI02 as tolerated. Encouraged increased activity as tolerated. Will order incentive spirometer and follow up chest xray in the am. Patient having some difficulty in sleeping and requesting a sleep aid. REVIEW OF SYSTEMS: CONSTITUTIONAL: No fever, no malaise, no fatigue. CARDIOVASCULAR: No chest pain, no palpitations PULMONARY: shortness of breath, no worse GASTROINTESTINAL: no nausea or vomiting noted NEUROLOGICAL: No headaches, no weakness, no numbness. GENITOURINARY: Denies any burning micturition, frequency, or urgency. PHYSICAL EXAMINATION: GENERAL: The patient is alert and oriented x3, not in any acute distress. Well developed, well nourished. HEENT: Pupils are round and equally reacting to light. EOMI. No scleral icterus. No conjunctival pallor. Normocephalic, atraumatic. No pharyngeal erythema. No thyromegaly. CARDIOVASCULAR: S1 and S2 present. No murmurs, rubs, or gallops. PULMONARY: Chest is clear to auscultation, with some coarse rhonchi noted. ABDOMEN: Soft, nontender, nondistended, normoactive bowel sounds. No palpable organomegaly. MUSCULOSKELETAL: No joint swelling or deformity. EXTREMITIES: No cyanosis, clubbing, or pedal edema. NEUROLOGICAL: Gross neurological examination did not reveal any focal deficits. SKIN: No rashes. Assessment: -COVID-19 pneumonia and acute hypoxic respiratory failure secondary to COVID-19 pneumonia -Diarrhea secondary to COVID-19 infection, improving -Hyponatremia hypovolemic hyponatremia secondary to diarrhea, improved with IV fluids and will discontinue, sodium is 138 -Elevated liver enzymes secondary to systemic inflammatory response from COVID- 19, trending down -DVT prophylaxis: Lovenox -Full code Plan: Continue with current medications. Wean FI02 as tolerated. Pulmonary following and ID. Will add IS and repeat am chest xray. Repeat am labs along with inflammatory markers. Sleep aid ordered as patient states he is not sleeping well. Will continue to monitor closely. Objective - Vital Signs Vital signs: Vital Signs Temp 97.4 F L 08/04/21 06:19 Pulse 72 08/04/21 06:19 Resp 18 08/04/21 06:19 BP 119/78 08/04/21 06:19 Pulse Ox 96 08/04/21 06:19 Intake & Output 08/03/21 08/04/21 08/04/21 18:59 06:59 18:59 Intake Total 300 Balance 300 Weight 108.862 kg Intake: Intake, IV Titration 300 Amount Sodium Chloride 0.9% 1, 300 000 ml @ 100 mls/hr IV . Q10H [facility] Rx#:[id number] - Labs CBC & Chem 7: 08/04/21 05:56 08/04/21 05:56 Labs: Abnormal Lab Results - Last 24 Hours (Table) 08/03/21 Range/Units 03:58 WBC 2.20 L (4.50-10.00) X 10*3/uL RBC 4.39 L (4.40-5.60) X 10*6/uL MCH 32.6 H (27.0-32.0) pg Plt Count 131 L (140-440) X 10*3/uL Plt Count Comment DECREASED A Neutrophils # 1.58 L (1.80-7.70) X 10*3/uL Lymphocytes # 0.43 L (0.90-5.00) X 10*3/uL Monocytes # 0.17 L (0.20-1.00) X 10*3/uL Eosinophils # 0 L (0.04-0.35) X 10*3/uL
--- NOTE | 2021-08-05 07:17 | XR ---
EXAMINATION TYPE: XR chest 1V portable DATE OF EXAM: 08/05/2021 CLINICAL HISTORY: Difficulty breathing and covid progress study. TECHNIQUE: Single AP portable upright view of the chest is obtained. COMPARISON: Chest x-ray from 3 days earlier and older studies. FINDINGS: Continued diminished inspiration. Continued multifocal and confluent bilateral opacities g reatest in the periphery slightly more prominent from most recent x-ray. Cardiac silhouette size is s table and upper limits of normal. Multilevel spurring of thoracic spine redemonstrated. IMPRESSION: Diminished inspiration with bilateral multifocal and confluent opacities greatest in the periphery slightly worsened from most recent x-ray consistent with covid-19 infection progression.
[2021-08-05] MEDS: ALBUTEROL HFA INHALER INHALATION PRN ×3 (07:38→20:21)
[2021-08-05] MEDS: FAMOTIDINE 20 MG TAB PO SCH (09:06)
[2021-08-05] MEDS: ENOXAPARIN 40 MG/0.4 ML SYRINGE SQ SCH ×2 (09:06→21:06)
[2021-08-05] MEDS: CHOLECALCIFEROL 25 MCG (1000 IU) TABLET PO SCH (09:06)
[2021-08-05] MEDS: ZINC SULFATE 220 MG CAP PO SCH (09:06)
[2021-08-05] MEDS: DEXAMETHASONE SOD PHOSPHATE 10 MG/ML 1 ML VIAL IVP SCH ×2 (09:06→21:06)
[2021-08-05] MEDS: MULTIVITAMINS, THERA 1 EACH TAB PO SCH (09:06)
[2021-08-05] MEDS: ASCORBIC ACID 500 MG TAB PO SCH (09:06)
[2021-08-05 10:14] LABS: C Reactive Protein 5.6 mg/dL (<1.0)
--- NOTE | 2021-08-05 12:59 | P.PN ---
Subjective Progress Note Date: 08/05/21 Pleasant 50-year-old male patient with known history of hypertension otherwise negative medical history, started getting sick approximately 5 days ago. Around , the patient started having GI symptoms of diarrhea and he was unable to keep anything him. The patient became progressively more weak and lethargic and in the same time he started developing shortness of breath. He went to an outpatient clinic with the patient was found to be hypoxic and he was directed to us for further care. The patient immediately checked positive for COVID 19. He is not vaccinated. His white cell count is at 2.2 with a hemoglobin of 14.3 with a platelet count of 131. His sodium was at 126 consistent with his underlying diarrhea. He had a component of non-anion gap metabolic acidosis secondary to diarrhea and his serum bicarb was at 19. LDH level was 1651 and he did have some mild transaminitis. Troponins are negative. Pro-calcitonin level was 0.1 and a CRP level is at 8.3. The patient was s tarted on Decadron. The patient was also started on IV fluids. He is also on Decadron for DVT prophylaxis. Currently is on 7 L of oxygen by nasal cannula. Note that he started off with 4 L and his oxygen requirements progressed and currently is on 7 L. No altered mentation. On 08/04/2021 patient seen in follow-up on medical surgical floor, he is awake and alert, in no acute distress, he is currently at 10 L of oxygen and this is an increase in his FiO2 since yesterday however clinical patient states she feels better, breathing easier, his sat on 10 L and 93%. He's been ambulating somewhat to the bathroom, tolerates activity well. No fever or chills, no chest discomfort, occasional cough, no phlegm production. He was started on Remdesivir, today's day 2 of treatment, he continues on Decadron 6 mg twice a day, and prophylactic Lovenox in addition to multivitamins. He is on point of the same at a rate of 100 mL per hour, his oral intake is good. Today's labs have been reviewed, his white count is 5.5, hemoglobin is 13.5, platelets are 145, improving, d-dimer is normal at 0.45, electrolytes and renal profile are unremarkable, his inflammatory markers are improving, his LDH is down to 495 from 1240 and yesterday's labs, and CRP is down to 8.0, his pro-calcitonin level was negative at 0.13 On 08/05/2021 patient seen in follow-up on medical surgical floor, clinically patient looks good, looks to be in no acute distress, awake and alert, oriented 3, sitting up in a recliner, although she does still require high flow oxygen currently at 8 L and pulse ox is 91%, denies any worsening dyspnea, he does have occasional dry nonproductive cough, afebrile, blood pressure has been stable. His diarrhea has resolved, his labs today have been reviewed, his serum sodium level is improving on today's labs, and is now within normal limits at 137, dressing electrolytes and renal profile were unremarkable. His LDH has increased on today's labs at the 1275, and CRP is 5.6, improved, his potassium level was -0.13 a few days ago, his white count is 5.56 on yesterday's labs, and hemoglobin is 13.5. he continues on Decadron 6 mg IV push twice daily, Remdesivir, he is on prophylactic dose Lovenox 40 daily. No nausea or vomiting, tolerating oral intake. Objective - Vital Signs Vital signs: Vital Signs Temp 97.6 F 08/05/21 08:00 Pulse 76 08/05/21 08:00 Resp 16 08/05/21 08:00 BP 131/83 08/05/21 08:00 Pulse Ox 91 L 08/05/21 08:00 Intake & Output 08/04/21 08/05/21 08/05/21 18:59 06:59 18:59 Intake Total 118 Balance 118 Intake: Oral 118 Other: # Voids 2 2 - Exam GENERAL EXAM: Alert, very pleasant, 50-year-old white male, on 8 L of oxygen a pulse ox of 93% comfortable in no apparent distress. HEAD: Normocephalic/atraumatic. EYES: Normal reaction of pupils, equal size. Conjunctiva pink, sclera white. NOSE: Clear with pink turbinates. THROAT: No erythema or exudates. NECK: No masses, no JVD, no thyroid enlargement, no adenopathy. CHEST: No chest wall deformity. Symmetrical expansion. LUNGS: Equal air entry with bibasilar crackles CVS: Regular rate and rhythm, normal S1 and S2, no gallops, no murmurs, no rubs ABDOMEN: Soft, nontender. No hepatosplenomegaly, normal bowel sounds, no guarding or rigidity. EXTREMITIES: No clubbing, no edema, no cyanosis, 2+ pulses and upper and lower extremities. MUSCULOSKELETAL: Muscle strength and tone normal. SPINE: No scoliosis or deformity SKIN: No rashes CENTRAL NERVOUS SYSTEM: Alert and oriented -3. No focal deficits, tone is normal in all 4 extremities. PSYCHIATRIC: Alert and oriented -3. Appropriate affect. Intact judgment and insight. - Labs CBC & Chem 7: 08/04/21 05:56 08/04/21 05:56 Labs: Abnormal Lab Results - Last 24 Hours (Table) 08/05/21 08/05/21 Range/Units 08:51 08:51 D-Dimer 2.37 H (<0.60) mg/L FEU Lactate Dehydrogenase 1272 H (313-618) U/L C-Reactive Protein 5.6 H (<1.0) mg/dL Microbiology - Last 24 Hours (Table) 08/03/21 10:15 Blood Culture - Preliminary Blood No Growth after 48 hours 08/03/21 10:00 Blood Culture - Preliminary Blood No Growth after 48 hours Assessment and Plan Plan: #1. acute COVID 19 related pneumonia. The patient has bilateral pulmonary infiltrates and the patient has crackles in the mid and lower lung is bilaterall y and the patient is currently on 7 L of oxygen by nasal cannula. Symptoms started less than a week ago and the patient progressed rather rapidly. The patient's initial symptoms were mainly GI related as the patient presented with diarrhea and it seems that the diarrhea is subsiding at this point in time. patient was started on the Remdesivir on 08/03/2021 #2. acute hypoxic respiratory failure, slightly improved, and patient is currently requiring 8 L of supplemental oxygen breathing fairly comfortably #3. acute diarrhea, related to COVID 19, resolved #4. Anion gap metabolic acidosis secondary to diarrhea, improved, diarrhea has resolved #5. acute hypovolemic hyponatremia secondary to diarrhea, resolved #6. leukopenia and thrombocytopenia, likely related to COVID 19 infection, resol ranjith #7. hypertension Plan: Continue Remdesivir and today is day 3 of treatment FiO2 down to 8 L L, but clinically patient states he is feeling better, breathing easier Today's labs have been reviewed, inflammatory markers are still elevated but clinically patient is feeling better Continue Decadron, continue prophylactic Lovenox His diarrhea has resolved His serum sodium has significantly improved Today's labs are still pending Continue working on weaning the oxygen down We'll continue to follow his clinical course Follow d-dimer and inflammatory markers tomorrow, follow up chemistries I performed a history & physical examination of the patient and discussed their management with my nurse practitioner, Elsa Godinez. I reviewed the nurse practitioner's note and agree with the documented findings and plan of care. Lung sounds are positive for basilar rales throughout the lung meyer. The findings and the impression was discussed with the patient. I attest to the documentation by the nurse practitioner. Time with Patient: Less than 30
--- NOTE | 2021-08-05 16:18 | PN ---
PROGRESS NOTE DATE OF SERVICE: 08/05/2021 REASON FOR FOLLOWUP: COVID-19 pneumonia. INTERVAL HISTORY: The patient is afebrile. The patient is breathing comfortably. However, he is requiring more supplemental oxygen since this morning. The patient denies any chest pain or worsening cough or sputum production. No abdominal pain or diarrhea. PHYSICAL EXAMINATION: Blood pressure 125/77, pulse 83, temperature 97.5. He is 91% on 8 L nasal cannula. General description is a middle-aged male up in the room in no distress. Respiratory system: Unlabored breathing, decreased intensity of breath sounds. No wheeze. Heart S1, S2. Regular rate and rhythm. Abdomen soft, no tenderness. LABS: Hemoglobin 13.5, white count 5.56, creatinine 0.8. DIAGNOSTIC IMPRESSION AND PLAN: Patient with acute COVID-19 pneumonia in this patient with slight worsening of his clinical condition, requiring more supplemental oxygen. X-ray shows slight worsening. Patient at this time to continue with remdesivir in addition to dexamethasone and Lovenox, zinc and ascorbic acid along with respiratory support, and monitor his clinical course closely. MMODL / IJN: [id number] /
[2021-08-05] MEDS: REMDESIVIR 100 MG in SODIUM CHLORIDE 0.9% 250 ML IVPB SCH (17:32)
--- NOTE | 2021-08-06 01:08 | P.PN ---
Subjective Progress Note Date: 08/05/21 50-year-old male came in with the complaints of diarrhea which started about 4-5 days ago. Patient denied any significant fever patient doesn't have any fever here. Patient is found to be hypoxic and patient is presently on 7 L of oxygen. Patient is also found to be hyponatremic from diarrhea. Patient is found to have positive COVID-19 PCR. Patient d-dimer is 0.5 to does have elevated inflammatory markers along with elevated liver enzymes. Patient was not vaccinated for Covid 19 08/04/2021 Patient is seen in follow up this morning maintained on 10L HF and pulmonary and ID following. Patient is receiving Remdesivir and also maintained on IV dexamethasone, lovenox, vitamin and zinc supplements and will continue. Weaning FI02 as tolerated. Encouraged increased activity as tolerated. Will order incentive spirometer and follow up chest xray in the am. Patient having some difficulty in sleeping and requesting a sleep aid. 08/05/2021 Patient is seen in follow up this morning and currently sitting up at the window in no acute distress. Pulmonary following and continued on Remdesivir along with dexamethasone, lovenox and vitamin and zinc supplements. Currently maintained on 8L HF and dyspneic with exertion although states no worsening. Patient eager to go home. Ddimer elevated at 2 and will increase lovenox to bid. Repeat labs ordered. REVIEW OF SYSTEMS: CONSTITUTIONAL: No fever, no malaise, no fatigue. CARDIOVASCULAR: No chest pain, no palpitations PULMONARY: shortness of breath, no worse GASTROINTESTINAL: no nausea or vomiting noted NEUROLOGICAL: No headaches, no weakness, no numbness. GENITOURINARY: Denies any burning, frequency, or urgency. Active Medications Acetaminophen (Acetaminophen Tab 325 Mg Tab) 650 mg PO Q4HR PRN PRN Reason: Fever>101 Last Admin: 08/04/21 09:06 Dose: 650 mg Documented by: Albuterol Sulfate (Albuterol Hfa Inhaler) 2 puff INHALATION RT-Q6H PRN PRN Reason: Shortness Of Breath Or Wheezing Last Admin: 08/05/21 20:21 Dose: 2 puff Documented by: Ascorbic Acid (Ascorbic Acid 500 Mg Tab) 1,000 mg PO DAILY GINA Last Admin: 08/05/21 09:06 Dose: 1,000 mg Documented by: Cholecalciferol (Cholecalciferol 25 Mcg (1000 Iu) Tablet) 50 mcg PO DAILY [facility] Last Admin: 08/05/21 09:06 Dose: 50 mcg Documented by: Dexamethasone Sodium Phosphate (Dexamethasone Sod Phosphate 10 Mg/Ml 1 Ml Vial) 6 mg IVP BID [facility] Last Admin: 08/05/21 21:06 Dose: 6 mg Documented by: Enoxaparin Sodium (Enoxaparin 40 Mg/0.4 Ml Syringe) 40 mg SQ BID [facility] Last Admin: 08/05/21 21:06 Dose: 40 mg Documented by: Famotidine (Famotidine 20 Mg Tab) 40 mg PO DAILY [facility] Last Admin: 08/05/21 09:06 Dose: 40 mg Documented by: Remdesivir 100 mg/ Sodium (Chloride) 250 mls @ 250 mls/hr IVPB DAILY@1800 [facility] Stop: 08/07/21 18:59 Last Admin: 08/05/21 17:32 Dose: 250 mls/hr Documented by: Multivitamins (Multivitamins, Thera 1 Each Tab) 1 each PO DAILY [facility] Last Admin: 08/05/21 09:06 Dose: 1 each Documented by: Naloxone HCl (Naloxone 0.4 Mg/Ml 1 Ml Vial) 0.2 mg IV Q2M PRN PRN Reason: Opioid Reversal Zinc Sulfate (Zinc Sulfate 220 Mg Cap) 220 mg PO DAILY [facility] Last Admin: 08/05/21 09:06 Dose: 220 mg Documented by: Zolpidem Tartrate (Zolpidem 10 Mg Tab) 10 mg PO HS PRN PRN Reason: Insomnia PHYSICAL EXAMINATION: GENERAL: The patient is alert and oriented x3, not in any acute distress. Well developed, well nourished. HEENT: Pupils are round and equally reacting to light. EOMI. No scleral icterus. No conjunctival pallor. Normocephalic, atraumatic. No pharyngeal erythema. No thyromegaly. CARDIOVASCULAR: S1 and S2 present. No murmurs, rubs, or gallops. PULMONARY: Chest is clear to auscultation, with some coarse rhonchi noted. ABDOMEN: Soft, nontender, nondistended, normoactive bowel sounds. No palpable organomegaly. MUSCULOSKELETAL: No joint swelling or deformity. EXTREMITIES: No cyanosis, clubbing, or pedal edema. NEUROLOGICAL: Gross neurological examination did not reveal any focal deficits. SKIN: No rashes. Assessment: -COVID-19 pneumonia and acute hypoxic respiratory failure secondary to COVID-19 pneumonia -Diarrhea secondary to COVID-19 infection, improving -Hyponatremia hypovolemic hyponatremia secondary to diarrhea, improved with IV fluids -Elevated liver enzymes secondary to systemic inflammatory response from COVID- 19, trending down -DVT prophylaxis: Lovenox -Full code Plan: Continue with current medications. Wean FI02 as tolerated. Pulmonary following and ID. Encourage IS and will repeat am chest xray. Repeat am labs along with inflammatory markers. Maintained on 8L HF and continues on covid supplements along with Remdesivir and lovenox bid, dexamethasone and will continue. Will continue to monitor closely. Objective - Vital Signs Vital signs: Vital Signs Temp 98.2 F 08/05/21 01:49 Pulse 67 08/05/21 01:49 Resp 17 08/05/21 01:49 BP 137/84 08/05/21 01:49 Pulse Ox 87 L 08/05/21 07:38 Intake & Output 08/04/21 08/05/21 08/05/21 18:59 06:59 18:59 Other: # Voids 2 2 - Labs CBC & Chem 7: 08/04/21 05:56 08/04/21 05:56 Labs: Abnormal Lab Results - Last 24 Hours (Table) 08/04/21 08/04/21 Range/Units 05:56 05:56 RBC 4.33 L (4.40-5.60) X 10*6/uL MPV 9.1 L (9.5-12.2) fL Lymphocytes # 0.28 L (0.90-5.00) X 10*3/uL Eosinophils # 0 L (0.04-0.35) X 10*3/uL Glucose 133 H (70-110) mg/dL Calcium 8.6 L (8.7-10.3) mg/dL AST 78 H (14-35) U/L ALT 91 H (10-49) U/L Lactate Dehydrogenase 495 H (120-246) U/L C-Reactive Protein 8.00 H (0.00-0.80) mg/dL Microbiology - Last 24 Hours (Table) 08/03/21 10:00 Blood Culture - Preliminary Blood No Growth after 24 hours 08/03/21 10:15 Blood Culture - Preliminary Blood No Growth after 24 hours
--- NOTE | 2021-08-06 08:03 | XR ---
EXAMINATION TYPE: XR chest 1V portable DATE OF EXAM: 08/06/2021 COMPARISON: 08/05/2021 INDICATION: Short of breath TECHNIQUE: Single frontal view of the chest is obtained. FINDINGS: The heart size is normal. The pulmonary vasculature is normal. Patchy infiltrates are present and appear stable. Continued follow-up is recommended IMPRESSION: 1. Stable bilateral patchy infiltrates. Continued follow-up is recommended
[2021-08-06] MEDS: ALBUTEROL HFA INHALER INHALATION PRN ×3 (08:25→21:14)
[2021-08-06] MEDS: DEXAMETHASONE SOD PHOSPHATE 10 MG/ML 1 ML VIAL IVP SCH ×2 (08:54→20:31)
[2021-08-06] MEDS: ZINC SULFATE 220 MG CAP PO SCH (09:05)
[2021-08-06] MEDS: ASCORBIC ACID 500 MG TAB PO SCH (09:05)
[2021-08-06] MEDS: MULTIVITAMINS, THERA 1 EACH TAB PO SCH (09:05)
[2021-08-06] MEDS: CHOLECALCIFEROL 25 MCG (1000 IU) TABLET PO SCH (09:05)
[2021-08-06] MEDS: FAMOTIDINE 20 MG TAB PO SCH (09:05)
[2021-08-06] MEDS: ENOXAPARIN 40 MG/0.4 ML SYRINGE SQ SCH (09:08)
[2021-08-06 11:01] LABS: Basophils # (A) 0 X 10*3/uL (0.00-0.10); Basophils % (A) 0 %; Eosinophils # (A) 0 X 10*3/uL (0.04-0.35); Eosinophils % (A) 0 %; HCT 40.6 % (39.6-50.0); HGB 13.5 g/dL (13.0-17.0); Lymphocytes # (A) 0.23 X 10*3/uL (0.90-5.00); Lymphocytes % (A) 3.9 %; MCH 31.5 pg (27.0-32.0); MCHC 33.3 g/dL (32.0-37.0); MCV 94.6 fL (80.0-97.0); Mean Platelet Volume 9.2 fL (9.5-12.2); Monocytes # (A) 0.11 X 10*3/uL (0.20-1.00); Monocytes % (A) 1.9 %; Neutrophils # (A) 5.55 X 10*3/uL (1.80-7.70); Neutrophils % (A) 93.5 %; Platelet Count 184 X 10*3/uL (140-440); RBC 4.29 X 10*6/uL (4.40-5.60); RDW 11.9 % (11.5-14.5); WBC 5.93 X 10*3/uL (4.50-10.00)
[2021-08-06 11:34] LABS: C Reactive Protein 8.6 mg/dL (0.00-0.80)
[2021-08-06 11:47] LABS: African American GFR (CKD) 119.9 (60.0-200.0); Albumin 3.8 g/dL (3.8-4.9); Albumin/Globulin Ratio 1.65 (1.60-3.17); Anion Gap 15.6 mmol/L (10.00-18.00); BUN/Creat Ratio 15.63 Ratio (12.00-20.00); Blood Urea Nitrogen 12.5 mg/dL (9.0-27.0); Calcium 8.4 mg/dL (8.7-10.3); Carbon Dioxide 23.4 mmol/L (20.0-27.5); Globulin 2.3 g/dL (1.6-3.3); Non-African American GFR(CKD) 103.4 (60.0-200.0); Potassium 4.2 mmol/L (3.5-5.5); Total Bilirubin 0.6 mg/dL (0.30-1.20); Total Protein 6.1 g/dL (6.2-8.2)
--- NOTE | 2021-08-06 12:58 | US ---
EXAMINATION TYPE: US venous doppler duplex LE BI DATE OF EXAM: 08/06/2021 12:45 PM COMPARISON: NONE CLINICAL HISTORY: elevated d-dimer. Covid positive SIDE PERFORMED: Bilateral TECHNIQUE: The lower extremity deep venous system is examined utilizing real time linear array sonog loly with graded compression, doppler sonography and color-flow sonography. VESSELS IMAGED: Common Femoral Vein Deep Femoral Vein Greater Saphenous Vein * Femoral Vein Popliteal Vein Small Saphenous Vein * Proximal Calf Veins (* superficial vessels) Right Leg: Negative for DVT Left Leg: Negative for DVT IMPRESSION: 1. Bilateral lower extremity ultrasound negative for deep venous thrombosis.
--- NOTE | 2021-08-06 13:09 | P.PN ---
Subjective Progress Note Date: 08/06/21 Pleasant 50-year-old male patient with known history of hypertension otherwise negative medical history, started getting sick approximately 5 days ago. Around , the patient started having GI symptoms of diarrhea and he was unable to keep anything him. The patient became progressively more weak and lethargic and in the same time he started developing shortness of breath. He went to an outpatient clinic with the patient was found to be hypoxic and he was directed to us for further care. The patient immediately checked positive for COVID 19. He is not vaccinated. His white cell count is at 2.2 with a hemoglobin of 14.3 with a platelet count of 131. His sodium was at 126 consistent with his underlying diarrhea. He had a component of non-anion gap metabolic acidosis secondary to diarrhea and his serum bicarb was at 19. LDH level was 1651 and he did have some mild transaminitis. Troponins are negative. Pro-calcitonin level was 0.1 and a CRP level is at 8.3. The patient was started on Decadron. The patient was also started on IV fluids. He is also on Decadron for DVT prophylaxis. Currently is on 7 L of oxygen by nasal cannula. Note that he started off with 4 L and his oxygen requirements progressed and currently is on 7 L. No altered mentation. On 08/04/2021 patient seen in follow-up on medical surgical floor, he is awake and alert, in no acute distress, he is currently at 10 L of oxygen and this is an increase in his FiO2 since yesterday however clinical patient states she feels better, breathing easier, his sat on 10 L and 93%. He's been ambulating somewhat to the bathroom, tolerates activity well. No fever or chills, no chest discomfort, occasional cough, no phlegm production. He was started on Remdesivir, today's day 2 of treatment, he continues on Decadron 6 mg twice a day, and prophylactic Lovenox in addition to multivitamins. He is on point of the same at a rate of 100 mL per hour, his oral intake is good. Today's labs have been reviewed, his white count is 5.5, hemoglobin is 13.5, platelets are 145, improving, d-dimer is normal at 0.45, electrolytes and renal profile are unremarkable, his inflammatory markers are improving, his LDH is down to 495 from 1240 and yesterday's labs, and CRP is down to 8.0, his pro-calcitonin level was negative at 0.13 On 08/05/2021 patient seen in follow-up on medical surgical floor, clinically patient looks good, looks to be in no acute distress, awake and alert, oriented 3, sitting up in a recliner, although she does still require high flow oxygen currently at 8 L and pulse ox is 91%, denies any worsening dyspnea, he does have occasional dry nonproductive cough, afebrile, blood pressure has been stable. His diarrhea has resolved, his labs today have been reviewed, his serum sodium level is improving on today's labs, and is now within normal limits at 137, dressing electrolytes and renal profile were unremarkable. His LDH has increased on today's labs at the 1275, and CRP is 5.6, improved, his potassium level was -0.13 a few days ago, his white count is 5.56 on yesterday's labs, and hemoglobin is 13.5. he continues on Decadron 6 mg IV push twice daily, Remdesivir, he is on prophylactic dose Lovenox 40 daily. No nausea or vomiting, tolerating oral intake. 08/06/2021, the patient feels well. Clinically, the patient is feeling well. He reports improvement in his symptoms. Nevertheless, his oxidation is been worse the patient is having high oxygen requirements and the patient is currently on 100% nonrebreather facemask in addition to 15 L nasal cannula. Note that the patient was only on 8 L yesterday. No nausea. No vomiting. No diarrhea. His diarrhea has subsided. His white cell count remains at 5.9, he is d-dimer is at 9.9 which is higher compared to yesterday. The sodium is at 139, potassium is 4.2, glucose of 135, LFTs show some mild transaminitis, LDH level is lower at 561 compared to yesterday with a CRP level of tics 0.1. The patient was receiving Decadron and the patient was receiving Remdesivir. He was started on Remdesivir treatment on 08/04/2021 and today's day #3 of treatment. He remains on Lovenox for DVT prophylaxis and is receiving 40 mg subcu every 12 hours. We'll check Doppler of the lower extremities. We'll check CT angiogram. Objective - Vital Signs Vital signs: Vital Signs Temp 97.5 F L 08/06/21 08:42 Pulse 86 08/06/21 08:42 Resp 18 08/06/21 08:42 BP 134/74 08/06/21 08:42 Pulse Ox 93 L 08/06/21 11:55 Intake & Output 08/05/21 08/06/21 08/06/21 18:59 06:59 18:59 Intake Total 1182 Balance 1182 Intake: Oral 1182 Other: # Voids 2 3 - Exam GENERAL EXAM: Alert, very pleasant, 50-year-old white male, on 100% nonrebreather facemask in addition to 15 L of oxygen a pulse ox of 93% comfortable in no apparent distress. HEAD: Normocephalic/atraumatic. EYES: Normal reaction of pupils, equal size. Conjunctiva pink, sclera white. NOSE: Clear with pink turbinates. THROAT: No erythema or exudates. NECK: No masses, no JVD, no thyroid enlargement, no adenopathy. CHEST: No chest wall deformity. Symmetrical expansion. LUNGS: Equal air entry with bibasilar crackles CVS: Regular rate and rhythm, normal S1 and S2, no gallops, no murmurs, no rubs ABDOMEN: Soft, nontender. No hepatosplenomegaly, normal bowel sounds, no guarding or rigidity. EXTREMITIES: No clubbing, no edema, no cyanosis, 2+ pulses and upper and lower extremities. MUSCULOSKELETAL: Muscle strength and tone normal. SPINE: No scoliosis or deformity SKIN: No rashes CENTRAL NERVOUS SYSTEM: Alert and oriented -3. No focal deficits, tone is normal in all 4 extremities. PSYCHIATRIC: Alert and oriented -3. Appropriate affect. Intact judgment and insight. - Labs CBC & Chem 7: 08/06/21 08:19 08/06/21 08:19 Labs: Abnormal Lab Results - Last 24 Hours (Table) 08/06/21 08/06/21 08/06/21 Range/Units 08:19 08:19 08:19 RBC 4.29 L (4.40-5.60) X 10*6/uL MPV 9.2 L (9.5-12.2) fL Lymphocytes # 0.23 L (0.90-5.00) X 10*3/uL Monocytes # 0.11 L (0.20-1.00) X 10*3/uL Eosinophils # 0 L (0.04-0.35) X 10*3/uL D-Dimer 9.91 H (<0.60) mg/L FEU Glucose 135 H (70-110) mg/dL Calcium 8.4 L (8.7-10.3) mg/dL AST 49 H (14-35) U/L ALT 67 H (10-49) U/L Lactate Dehydrogenase 561 H (120-246) U/L C-Reactive Protein 8.60 H (0.00-0.80) mg/dL Total Protein 6.1 L (6.2-8.2) g/dL Microbiology - Last 24 Hours (Table) 08/03/21 10:00 Blood Culture - Preliminary Blood No Growth after 72 hours 08/03/21 10:15 Blood Culture - Preliminary Blood No Growth after 72 hours Assessment and Plan Plan: 1 acute COVID 19 related pneumonia. The patient has bilateral pulmonary infiltrates and the patient has crackles in the mid and lower lung is bilater ally and the patient is currently on 15 L oxygen by nasal cannula along with 100% on a beta facemask. The patient's d-dimer has increased in number. LDH is declined. There is a concern for pulmonary embolism as the patient clinically has been improving get his oxidation is been worse. We'll proceed with further investigation for DVT and pulmonary embolism. 2 acute hypoxic respiratory failure currently on 15 L of oxygen by nasal cannula 3 acute diarrhea, improving and this is related to COVID 19 499 gap metabolic acidosis secondary to diarrhea 5 acute hypovolemic hyponatremia secondary to diarrhea 6 leukopenia and thrombocytopenia, likely related to COVID 19 infection. The patient hematologic profile has improved. The white cell count is up to 5.9. The platelet count is up to 184. 7 hypertension Plan Admit this patient to the hospital Titrated oxygen flow currently on 100% nonrebreather facemask along with 15 L of oxygen nasal cannula Continue Decadron 6 mg IV every 12 hours Start the patient out of the city per protocol as the patient falls within the window and he seems to be a good candidate for the treatment Put the patient on multivitamins tailored to COVID 19 Continue Lovenox Check Doppler of the lower extremities CT angiogram to rule out pulmonary embolism We'll continue to follow make further recommendations based on his progress.
--- NOTE | 2021-08-06 13:41 | CT ---
CT CHEST FOR PULMONARY EMBOLISM. EXAMINATION TYPE: CT chest angio for PE DATE OF EXAM: 08/06/2021 INDICATION: Elevated d-dimer. Covid. Shortness of breath. CT DLP: 638.2 mGycm, Automated exposure control for dose reduction was used. CONTRAST: Patient injected with 100 mL of Isovue 370. COMPARISON: None TECHNIQUE: CT of the chest is performed on a spiral scan at 2 mm thick sections. Study is performed with intravenous contrast timed for evaluation for pulmonary embolism. This will limit additional po rtions of the evaluation. 3-D MIP images reconstructed by the technologist are reviewed on the compu ter in the coronal and sagittal planes. FINDINGS: No persistent filling defects are evident to suggest an acute pulmonary embolism. No mediastinal or hilar adenopathy enlarged by CT criteria is evident. The ascending aorta diameter at the level of the main pulmonary artery is 3.6 cm. The main pulmonary artery diameter at the bifur cation is 2.8 cm. There is diffuse groundglass opacities are present bilaterally. Additional infiltrate is present in t he lower lung bases. Findings can be compatible with atypical pneumonia. Limited CT section through the upper abdomen are unremarkable. IMPRESSIONS: 1. No acute pulmonary embolism. 2. Diffuse groundglass opacities and infiltrates can be compatible with atypical pneumonia.
[2021-08-06] MEDS: REMDESIVIR 100 MG in SODIUM CHLORIDE 0.9% 250 ML IVPB SCH (17:09)
--- NOTE | 2021-08-06 17:30 | PN ---
PROGRESS NOTE DATE OF SERVICE: 08/06/2021 REASON FOR FOLLOWUP: COVID-19 pneumonia. INTERVAL HISTORY: The patient is afebrile. The patient was noted to have worsening of his respiratory status, for which the patient did have a CT angiogram of the chest that was negative for PE. The patient denies having any chest pain. No worsening cough or sputum production. No abdominal pain or diarrhea. PHYSICAL EXAMINATION: Blood pressure 127/66, pulse of 82, temperature 98.7. He is 90% on 15 L non- rebreather. General description is a middle-aged male up in the chair in no distress. Respiratory system: Unlabored breathing, decreased intensity of breath sounds. No wheeze. Heart S1, S2. Regular rate and rhythm. Abdomen soft, no tenderness. LABS: Hemoglobin 13.1, white count 5.93, creatinine 0.8. DIAGNOSTIC IMPRESSION AND PLAN: Patient with acute COVID-19 pneumonia. Patient is currently on dexamethasone, Lovenox, remdesivir, zinc and ascorbic acid. Continue with supportive care. MMODL / IJN: [id number] /
[2021-08-06] MEDS: ENOXAPARIN 60 MG/0.6 ML SYRINGE SQ SCH (20:31)
--- NOTE | 2021-08-07 01:16 | P.PN ---
Subjective Progress Note Date: 08/06/21 50-year-old male came in with the complaints of diarrhea which started about 4-5 days ago. Patient denied any significant fever patient doesn't have any fever here. Patient is found to be hypoxic and patient is presently on 7 L of oxygen. Patient is also found to be hyponatremic from diarrhea. Patient is found to have positive COVID-19 PCR. Patient d-dimer is 0.5 to does have elevated inflammatory markers along with elevated liver enzymes. Patient was not vaccinated for Covid 19 08/04/2021 Patient is seen in follow up this morning maintained on 10L HF and pulmonary and ID following. Patient is receiving Remdesivir and also maintained on IV dexamethasone, lovenox, vitamin and zinc supplements and will continue. Weaning FI02 as tolerated. Encouraged increased activity as tolerated. Will order incentive spirometer and follow up chest xray in the am. Patient having some difficulty in sleeping and requesting a sleep aid. 08/05/2021 Patient is seen in follow up this morning and currently sitting up at the window in no acute distress. Pulmonary following and continued on Remdesivir along with dexamethasone, lovenox and vitamin and zinc supplements. Currently maintained on 8L HF and dyspneic with exertion although states no worsening. Patient eager to go home. Ddimer elevated at 2 and will increase lovenox to bid. Repeat labs ordered. 08/06/2021 Patient is seen and evaluated in follow up today and respiratory has worsened and now requiring 15L HF along with 15 L non-rebreather. Patient is continued on IV dexamathasone, lovenox bid, vitamin and zinc supplements and continued of Remdesivir with pulmonary and ID following. D-dimer also elevated and 9.91 compared to 2.37 yesterday. bilateral venous doppler and CTA ordered to evaluate for any DVT or PE. Encouraged increased activity as tolerated and continue with IS use. Chest xray today shows stable bilateral patchy infiltrates. Will increase lovenox to bid Labs: WBC is 5.93, hgb 13.5, platelets 184, d-dimer 9.91,sodium is 139, potassium is 4.2, creatinine is 0.8, crp 8.6 REVIEW OF SYSTEMS: CONSTITUTIONAL: No fever, no malaise, no fatigue. CARDIOVASCULAR: No chest pain, no palpitations PULMONARY: reports worsening shortness of breath GASTROINTESTINAL: no nausea or vomiting noted NEUROLOGICAL: No headaches, no weakness, no numbness. GENITOURINARY: Denies any burning, frequency, or urgency. Active Medications Acetaminophen (Acetaminophen Tab 325 Mg Tab) 650 mg PO Q4HR PRN PRN Reason: Fever>101 Last Admin: 08/04/21 09:06 Dose: 650 mg Documented by: Albuterol Sulfate (Albuterol Hfa Inhaler) 2 puff INHALATION RT-Q6H PRN PRN Reason: Shortness Of Breath Or Wheezing Last Admin: 08/06/21 21:14 Dose: 2 puff Documented by: Ascorbic Acid (Ascorbic Acid 500 Mg Tab) 1,000 mg PO DAILY [facility] Last Admin: 08/06/21 09:05 Dose: 1,000 mg Documented by: Cholecalciferol (Cholecalciferol 25 Mcg (1000 Iu) Tablet) 50 mcg PO DAILY [facility] Last Admin: 08/06/21 09:05 Dose: 50 mcg Documented by: Dexamethasone Sodium Phosphate (Dexamethasone Sod Phosphate 10 Mg/Ml 1 Ml Vial) 6 mg IVP BID [facility] Last Admin: 08/06/21 20:31 Dose: 6 mg Documented by: Enoxaparin Sodium (Enoxaparin 60 Mg/0.6 Ml Syringe) 60 mg SQ BID [facility] Last Admin: 08/06/21 20:31 Dose: 60 mg Documented by: Famotidine (Famotidine 20 Mg Tab) 40 mg PO DAILY [facility] Last Admin: 08/06/21 09:05 Dose: 40 mg Documented by: Remdesivir 100 mg/ Sodium (Chloride) 250 mls @ 250 mls/hr IVPB DAILY@1800 [facility] Stop: 08/07/21 18:59 Last Admin: 08/06/21 17:09 Dose: 250 mls/hr Documented by: Multivitamins (Multivitamins, Thera 1 Each Tab) 1 each PO DAILY [facility] Last Admin: 08/06/21 09:05 Dose: 1 each Documented by: Naloxone HCl (Naloxone 0.4 Mg/Ml 1 Ml Vial) 0.2 mg IV Q2M PRN PRN Reason: Opioid Reversal Zinc Sulfate (Zinc Sulfate 220 Mg Cap) 220 mg PO DAILY [facility] Last Admin: 08/06/21 09:05 Dose: 220 mg Documented by: Zolpidem Tartrate (Zolpidem 10 Mg Tab) 10 mg PO HS PRN PRN Reason: Insomnia PHYSICAL EXAMINATION: GENERAL: The patient is alert and oriented x3, acute respiratory distress. Well developed, well nourished. HEENT: Pupils are round and equally reacting to light. EOMI. No scleral icterus. No conjunctival pallor. Normocephalic, atraumatic. No pharyngeal erythema. No thyromegaly. CARDIOVASCULAR: S1 and S2 present. No murmurs, rubs, or gallops. PULMONARY: Chest is clear to auscultation, with some coarse rhonchi noted. ABDOMEN: Soft, nontender, nondistended, normoactive bowel sounds. No palpable organomegaly. MUSCULOSKELETAL: No joint swelling or deformity. EXTREMITIES: No cyanosis, clubbing, or pedal edema. NEUROLOGICAL: Gross neurological examination did not reveal any focal deficits. SKIN: No rashes. Assessment: -COVID-19 pneumonia and acute hypoxic respiratory failure secondary to COVID-19 pneumonia -elevated d-dimer without evidence of PE or DVT as noted on imaging -Diarrhea secondary to COVID-19 infection, improving -Hyponatremia hypovolemic hyponatremia secondary to diarrhea, improved with IV fluids -Elevated liver enzymes secondary to systemic inflammatory response from COVID- 19, trending down -DVT prophylaxis: Lovenox -Full code Plan: Continue with current medications. Wean FI02 as tolerated. Respiratory status worsening today and maintained on 15L HF and 15L non-rebreather. CTa was done due to elevated d-dimer and was negative for PE. Bilateral venous dopplers negative for DVT. Will increase lovenox to 60 BID and monitor closely. Pulmonary following and ID. Encourage IS and activity as tolerated. Repeat am labs along with inflammatory markers. Continues on covid supplements along with Remdesivir and lovenox bid, dexamethasone and will continue. Will continue to monitor closely. Objective - Vital Signs Vital signs: Vital Signs Temp 98.5 F 08/06/21 05:43 Pulse 63 08/06/21 05:43 Resp 19 08/06/21 05:43 BP 139/82 08/06/21 05:43 Pulse Ox 89 L 08/06/21 05:43 Intake & Output 08/05/21 08/06/21 08/06/21 18:59 06:59 18:59 Intake Total 1182 Balance 1182 Intake: Oral 1182 Other: # Voids 2 3 - Labs CBC & Chem 7: 08/06/21 08:19 08/06/21 08:19 Labs: Abnormal Lab Results - Last 24 Hours (Table) 08/05/21 Range/Units 08:51 Lactate Dehydrogenase 1272 H (313-618) U/L C-Reactive Protein 5.6 H (<1.0) mg/dL Microbiology - Last 24 Hours (Table) 08/03/21 10:15 Blood Culture - Preliminary Blood No Growth after 48 hours 08/03/21 10:00 Blood Culture - Preliminary Blood No Growth after 48 hours
[2021-08-07] MEDS: ALBUTEROL HFA INHALER INHALATION PRN ×3 (08:50→20:43)
[2021-08-07] MEDS: DEXAMETHASONE SOD PHOSPHATE 10 MG/ML 1 ML VIAL IVP SCH ×2 (09:13→20:35)
[2021-08-07] MEDS: FAMOTIDINE 20 MG TAB PO SCH (09:16)
[2021-08-07] MEDS: ENOXAPARIN 60 MG/0.6 ML SYRINGE SQ SCH ×2 (09:16→20:35)
[2021-08-07] MEDS: MULTIVITAMINS, THERA 1 EACH TAB PO SCH (09:17)
[2021-08-07] MEDS: ASCORBIC ACID 500 MG TAB PO SCH (09:17)
[2021-08-07] MEDS: CHOLECALCIFEROL 25 MCG (1000 IU) TABLET PO SCH (09:17)
[2021-08-07] MEDS: ZINC SULFATE 220 MG CAP PO SCH (09:17)
[2021-08-07 10:34] LABS: Basophils % (A) 0 %; Eosinophils % (A) 0 %; HCT 37.5 % (39.0-53.0); Lymphocytes # (A) 0.1 k/uL (1.0-4.8); Lymphocytes % (A) 2 %; MCH 31.9 pg (25.0-35.0); MCHC 34.5 g/dL (31.0-37.0); MCV 92.4 fL (80.0-100.0); Mean Platelet Volume 7.3; Monocytes # (A) 0.2 k/uL (0-1.0); Monocytes % (A) 3 %; Neutrophils # (A) 4.5 k/uL (1.3-7.7); Neutrophils % (A) 94 %; Platelet Count 163 k/uL (150-450); RBC 4.06 m/uL (4.30-5.90); RDW 11.7 % (11.5-15.5); WBC 4.8 k/uL (3.8-10.6)
[2021-08-07 11:02] LABS: African American GFR (CKD) >90 (>60 ml/min/1.73 sqM); Anion Gap 8 mmol/L; Blood Urea Nitrogen 13 mg/dL (9-20); Calcium 8.4 mg/dL (8.4-10.2); Carbon Dioxide 29 mmol/L (22-30); Chloride 97 mmol/L (98-107); Glucose 138 mg/dL (74-99); Non-African American GFR(CKD) >90 (>60 ml/min/1.73 sqM); Potassium 4.4 mmol/L (3.5-5.1); Sodium 134 mmol/L (137-145)
--- NOTE | 2021-08-07 15:07 | P.PN ---
Subjective Progress Note Date: 08/07/21 50-year-old male came in with the complaints of diarrhea which started about 4-5 days ago. Patient denied any significant fever patient doesn't have any fever here. Patient is found to be hypoxic and patient is presently on 7 L of oxygen. Patient is also found to be hyponatremic from diarrhea. Patient is found to have positive COVID-19 PCR. Patient d-dimer is 0.5 to does have elevated inflammatory markers along with elevated liver enzymes. Patient was not vaccinated for Covid 19 08/04/2021 Patient is seen in follow up this morning maintained on 10L HF and pulmonary and ID following. Patient is receiving Remdesivir and also maintained on IV dexamethasone, lovenox, vitamin and zinc supplements and will continue. Weaning FI02 as tolerated. Encouraged increased activity as tolerated. Will order incentive spirometer and follow up chest xray in the am. Patient having some difficulty in sleeping and requesting a sleep aid. 08/05/2021 Patient is seen in follow up this morning and currently sitting up at the window in no acute distress. Pulmonary following and continued on Remdesivir along with dexamethasone, lovenox and vitamin and zinc supplements. Currently maintained on 8L HF and dyspneic with exertion although states no worsening. Patient eager to go home. Ddimer elevated at 2 and will increase lovenox to bid. Repeat labs ordered. 08/06/2021 Patient is seen and evaluated in follow up today and respiratory has worsened and now requiring 15L HF along with 15 L non-rebreather. Patient is continued on IV dexamathasone, lovenox bid, vitamin and zinc supplements and continued of Remdesivir with pulmonary and ID following. D-dimer also elevated and 9.91 compared to 2.37 yesterday. bilateral venous doppler and CTA ordered to evaluate for any DVT or PE. Encouraged increased activity as tolerated and continue with IS use. Chest xray today shows stable bilateral patchy infiltrates. Will increase lovenox to bid 08/07/2021 Patient sitting up in chair. Continues on 15L NRB and 15L High flow cannula with an oxygen saturation of 93 to 94%. Patient continues on IV decadron, lovenox BID, vitamins, zinc. Followed closely by pulmonary. No acute events overnight, patients main concern is ongoing shortness of breath. Temp 99.4, heart rate 79, blood pressure 148/81, respirations 24. Labs today: WBC 4.8, sodium 134, chloride 97, potassium 4.4. Glucose in the 130s. Prognosis remains guarded, continue with all other supportive care. REVIEW OF SYSTEMS: CONSTITUTIONAL: No fever, no malaise, no fatigue. CARDIOVASCULAR: No chest pain, no palpitations PULMONARY: reports shortness of breath mild at rest worse with exertion, even to commode. GASTROINTESTINAL: no nausea or vomiting noted NEUROLOGICAL: No headaches, no weakness, no numbness. GENITOURINARY: Denies any burning, frequency, or urgency. PHYSICAL EXAMINATION: GENERAL: The patient is alert and oriented x3, acute respiratory distress. Well developed, well nourished. HEENT: Pupils are round and equally reacting to light. EOMI. No scleral icterus. No conjunctival pallor. Normocephalic, atraumatic. No pharyngeal erythema. No thyromegaly. CARDIOVASCULAR: S1 and S2 present. No murmurs, rubs, or gallops. PULMONARY: Chest is clear to auscultation, with some coarse rales noted in the bases. ABDOMEN: Soft, nontender, nondistended, normoactive bowel sounds. No palpable organomegaly. MUSCULOSKELETAL: No joint swelling or deformity. EXTREMITIES: No cyanosis, clubbing, or pedal edema. NEUROLOGICAL: Gross neurological examination did not reveal any focal deficits. SKIN: No rashes. Assessment: -COVID-19 pneumonia and acute hypoxic respiratory failure secondary to COVID-19 pneumonia on 15L HF and 15L NRB. -elevated d-dimer without evidence of PE or DVT as noted on imaging -Diarrhea secondary to COVID-19 infection, improving -Hyponatremia hypovolemic hyponatremia secondary to diarrhea, improved with IV fluids -Elevated liver enzymes secondary to systemic inflammatory response from COVID- 19, trending down -Hypertension -DVT prophylaxis: Lovenox -Full code Plan: Continue with current medications. Wean FI02 as tolerated. Respiratory status maintained on 15L HF and 15L non-rebreather. CTa was done due to elevated d- dimer and was negative for PE. Bilateral venous dopplers negative for DVT. Pulmonary following and ID. Encourage IS and activity as tolerated. Repeat am labs along with inflammatory markers. Continues on covid supplements along with Remdesivir and lovenox bid, dexamethasone and will continue. Will continue to monitor closely. Objective - Vital Signs Vital signs: Vital Signs Temp 99.4 F 08/07/21 14:00 Pulse 79 08/07/21 14:00 Resp 24 08/07/21 14:00 BP 148/81 08/07/21 14:00 Pulse Ox 94 L 08/07/21 14:00 Intake & Output 08/06/21 08/07/21 08/07/21 18:59 06:59 18:59 Intake Total 1999 Balance 1999 Intake: Oral 1999 Other: # Voids 2 7 # Bowel Movements 1 - Labs CBC & Chem 7: 08/07/21 09:59 08/07/21 09:59 Labs: Abnormal Lab Results - Last 24 Hours (Table) 08/07/21 08/07/21 Range/Units 09:59 09:59 RBC 4.06 L (4.30-5.90) m/uL Hct 37.5 L (39.0-53.0) % Lymphocytes # 0.1 L (1.0-4.8) k/uL Sodium 134 L (137-145) mmol/L Chloride 97 L (98-107) mmol/L Glucose 138 H (74-99) mg/dL Microbiology - Last 24 Hours (Table) 08/03/21 10:15 Blood Culture - Preliminary Blood No Growth after 96 hours 08/03/21 10:00 Blood Culture - Preliminary Blood No Growth after 96 hours
--- NOTE | 2021-08-07 15:15 | P.PN ---
Subjective Progress Note Date: 08/07/21 Pleasant 50-year-old male patient with known history of hypertension otherwise negative medical history, started getting sick approximately 5 days ago. Around , the patient started having GI symptoms of diarrhea and he was unable to keep anything him. The patient became progressively more weak and lethargic and in the same time he started developing shortness of breath. He went to an outpatient clinic with the patient was found to be hypoxic and he was directed to us for further care. The patient immediately checked positive for COVID 19. He is not vaccinated. His white cell count is at 2.2 with a hemoglobin of 14.3 with a platelet count of 131. His sodium was at 126 consistent with his underlying diarrhea. He had a component of non-anion gap metabolic acidosis secondary to diarrhea and his serum bicarb was at 19. LDH level was 1651 and he did have some mild transaminitis. Troponins are negative. Pro-calcitonin level was 0.1 and a CRP level is at 8.3. The patient was started on Decadron. The patient was also started on IV fluids. He is also on Decadron for DVT prophylaxis. Currently is on 7 L of oxygen by nasal cannula. Note that he started off with 4 L and his oxygen requirements progressed and currently is on 7 L. No altered mentation. On 08/04/2021 patient seen in follow-up on medical surgical floor, he is awake and alert, in no acute distress, he is currently at 10 L of oxygen and this is an increase in his FiO2 since yesterday however clinical patient states she feels better, breathing easier, his sat on 10 L and 93%. He's been ambulating somewhat to the bathroom, tolerates activity well. No fever or chills, no chest discomfort, occasional cough, no phlegm production. He was started on Remdesivir, today's day 2 of treatment, he continues on Decadron 6 mg twice a day, and prophylactic Lovenox in addition to multivitamins. He is on point of the same at a rate of 100 mL per hour, his oral intake is good. Today's labs have been reviewed, his white count is 5.5, hemoglobin is 13.5, platelets are 145, improving, d-dimer is normal at 0.45, electrolytes and renal profile are unremarkable, his inflammatory markers are improving, his LDH is down to 495 from 1240 and yesterday's labs, and CRP is down to 8.0, his pro-calcitonin level was negative at 0.13 On 08/05/2021 patient seen in follow-up on medical surgical floor, clinically patient looks good, looks to be in no acute distress, awake and alert, oriented 3, sitting up in a recliner, although she does still require high flow oxygen currently at 8 L and pulse ox is 91%, denies any worsening dyspnea, he does have occasional dry nonproductive cough, afebrile, blood pressure has been stable. His diarrhea has resolved, his labs today have been reviewed, his serum sodium level is improving on today's labs, and is now within normal limits at 137, dressing electrolytes and renal profile were unremarkable. His LDH has increased on today's labs at the 1275, and CRP is 5.6, improved, his potassium level was -0.13 a few days ago, his white count is 5.56 on yesterday's labs, and hemoglobin is 13.5. he continues on Decadron 6 mg IV push twice daily, Remdesivir, he is on prophylactic dose Lovenox 40 daily. No nausea or vomiting, tolerating oral intake. 08/06/2021, the patient feels well. Clinically, the patient is feeling well. He reports improvement in his symptoms. Nevertheless, his oxidation is been worse the patient is having high oxygen requirements and the patient is currently on 100% nonrebreather facemask in addition to 15 L nasal cannula. Note that the patient was only on 8 L yesterday. No nausea. No vomiting. No diarrhea. His diarrhea has subsided. His white cell count remains at 5.9, he is d-dimer is at 9.9 which is higher compared to yesterday. The sodium is at 139, potassium is 4.2, glucose of 135, LFTs show some mild transaminitis, LDH level is lower at 561 compared to yesterday with a CRP level of tics 0.1. The patient was receiving Decadron and the patient was receiving Remdesivir. He was started on Remdesivir treatment on 08/04/2021 and today's day #3 of treatment. He remains on Lovenox for DVT prophylaxis and is receiving 40 mg subcu every 12 hours. We'll check Doppler of the lower extremities. We'll check CT angiogram. The patient is seen today 08/07/2021 in follow-up on the regular medical floor. He is currently sitting up in a chair at the bedside. Awake and alert in no acute distress. He states he is feeling quite well. He still however requiring 15 L high per nasal cannula plus a nonrebreather mask. He is afebrile. Hemodynamically stable. CT angiogram revealed no evidence of pulmonary embolism. There is diffuse ground glass opacities and infiltrates consistent with COVID-19 pneumonia. White count 4.8. Hemoglobin 13.0. Lymphocytes 0.1. Sodium 134. Potassium 4.4. Creatinine 0.70. He is continued on Decadron, Lovenox, vitamin supplements. Day number 5 of Remdesivir. Objective - Vital Signs Vital signs: Vital Signs Temp 99.4 F 08/07/21 14:00 Pulse 79 08/07/21 14:00 Resp 24 08/07/21 14:00 BP 148/81 08/07/21 14:00 Pulse Ox 94 L 08/07/21 14:00 Intake & Output 08/06/21 08/07/21 08/07/21 18:59 06:59 18:59 Intake Total 1999 Balance 1999 Intake: Oral 1999 Other: # Voids 2 7 # Bowel Movements 1 - Exam GENERAL EXAM: Alert, very pleasant, 50-year-old male patient, up in a chair at the bedside, on 15 L high flow nasal cannula plus a nonrebreather mask, fairly comfortable in no apparent distress. HEAD: Normocephalic/atraumatic. EYES: Normal reaction of pupils, equal size. Conjunctiva pink, sclera white. NOSE: Clear with pink turbinates. THROAT: No erythema or exudates. NECK: No masses, no JVD, no thyroid enlargement, no adenopathy. CHEST: No chest wall deformity. Symmetrical expansion. LUNGS: Equal air entry with bibasilar crackles CVS: Regular rate and rhythm, normal S1 and S2, no gallops, no murmurs, no rubs ABDOMEN: Soft, nontender. No hepatosplenomegaly, normal bowel sounds, no guarding or rigidity. EXTREMITIES: No clubbing, no edema, no cyanosis, 2+ pulses and upper and lower extremities. MUSCULOSKELETAL: Muscle strength and tone normal. SPINE: No scoliosis or deformity SKIN: No rashes CENTRAL NERVOUS SYSTEM: No focal deficits, tone is normal in all 4 extremities. PSYCHIATRIC: Alert and oriented -3. Appropriate affect. Intact judgment and insight. - Labs CBC & Chem 7: 08/07/21 09:59 12 09:59 Labs: Abnormal Lab Results - Last 24 Hours (Table) 08/07/21 08/07/21 Range/Units 09:59 09:59 RBC 4.06 L (4.30-5.90) m/uL Hct 37.5 L (39.0-53.0) % Lymphocytes # 0.1 L (1.0-4.8) k/uL Sodium 134 L (137-145) mmol/L Chloride 97 L (98-107) mmol/L Glucose 138 H (74-99) mg/dL Microbiology - Last 24 Hours (Table) 08/03/21 10:15 Blood Culture - Preliminary Blood No Growth after 96 hours 08/03/21 10:00 Blood Culture - Preliminary Blood No Growth after 96 hours Assessment and Plan Assessment: 1 acute COVID 19 related pneumonia. The patient has bilateral pulmonary infiltrates and the patient has crackles in the mid and lower lung is bilaterally and the patient is currently on 15 L oxygen by nasal cannula along with 100% on a beta facemask. The patient's d-dimer has increased in number. L DH is declined. There is a concern for pulmonary embolism as the patient clinically has been improving get his oxidation is been worse. We'll proceed with further investigation for DVT and pulmonary embolism. 2 acute hypoxic respiratory failure currently on 15 L of oxygen by nasal cannula 3 acute diarrhea, improving and this is related to COVID 19 499 gap metabolic acidosis secondary to diarrhea 5 acute hypovolemic hyponatremia secondary to diarrhea 6 leukopenia and thrombocytopenia, likely related to COVID 19 infection. The patient hematologic profile has improved. The white cell count is up to 5.9. The platelet count is up to 184. 7 hypertension Plan The patient was seen and evaluated Currently stable on 15 L high flow plus and nonrebreather mask Titrate the FiO2 as tolerate Day #5 of Remdesivir Continue Lovenox, Decadron, vitamin supplement We will continue to follow
[2021-08-07] MEDS: REMDESIVIR 100 MG in SODIUM CHLORIDE 0.9% 250 ML IVPB SCH (17:35)
--- NOTE | 2021-08-07 22:30 | PN ---
PROGRESS NOTE DATE OF SERVICE: 08/07/2021 REASON FOR FOLLOWUP: COVID-19 pneumonia. INTERVAL HISTORY: The patient is afebrile. The patient is breathing more comfortably, still requiring high-flow oxygen, though. The patient denies having any chest pain, shortness of breath. No worsening cough or sputum production. No abdominal pain or diarrhea. PHYSICAL EXAMINATION: Blood pressure 148/96 with a pulse of 80, temperature 98.7. He is 95% on 15 L high-flow oxygen. General description is a middle-aged male up in the chair in no distress. Respiratory system: Unlabored breathing, decreased intensity of breath sounds. No wheeze. Heart S1, S2. Regular rate and rhythm. Abdomen soft, no tenderness. LABS: Hemoglobin is 13, white count 4.8, creatinine 0.70. DIAGNOSTIC IMPRESSION AND PLAN: Patient with acute respiratory failure secondary to acute COVID-19 pneumonia. Patient has completed his 5-day course of remdesivir. Patient is covered with dexamethasone, Lovenox, zinc and ascorbic acid; to continue along with respiratory support and monitor his clinical course closely. MMODL / IJN: [id number] /
[2021-08-08] MEDS: DEXAMETHASONE SOD PHOSPHATE 10 MG/ML 1 ML VIAL IVP SCH ×2 (09:22→20:53)
[2021-08-08] MEDS: ENOXAPARIN 60 MG/0.6 ML SYRINGE SQ SCH ×2 (09:24→20:53)
[2021-08-08] MEDS: ASCORBIC ACID 500 MG TAB PO SCH (09:25)
[2021-08-08] MEDS: MULTIVITAMINS, THERA 1 EACH TAB PO SCH (09:25)
[2021-08-08] MEDS: CHOLECALCIFEROL 25 MCG (1000 IU) TABLET PO SCH (09:25)
[2021-08-08] MEDS: ZINC SULFATE 220 MG CAP PO SCH (09:25)
[2021-08-08] MEDS: FAMOTIDINE 20 MG TAB PO SCH (09:25)
[2021-08-08] MEDS: ALBUTEROL HFA INHALER INHALATION PRN ×2 (09:33→16:48)
--- NOTE | 2021-08-08 15:18 | P.PN ---
Subjective Progress Note Date: 08/08/21 50-year-old male came in with the complaints of diarrhea which started about 4-5 days ago. Patient denied any significant fever patient doesn't have any fever here. Patient is found to be hypoxic and patient is presently on 7 L of oxygen. Patient is also found to be hyponatremic from diarrhea. Patient is found to have positive COVID-19 PCR. Patient d-dimer is 0.5 to does have elevated inflammatory markers along with elevated liver enzymes. Patient was not vaccinated for Covid 19 08/04/2021 Patient is seen in follow up this morning maintained on 10L HF and pulmonary and ID following. Patient is receiving Remdesivir and also maintained on IV dexamethasone, lovenox, vitamin and zinc supplements and will continue. Weaning FI02 as tolerated. Encouraged increased activity as tolerated. Will order incentive spirometer and follow up chest xray in the am. Patient having some difficulty in sleeping and requesting a sleep aid. 08/05/2021 Patient is seen in follow up this morning and currently sitting up at the window in no acute distress. Pulmonary following and continued on Remdesivir along with dexamethasone, lovenox and vitamin and zinc supplements. Currently maintained on 8L HF and dyspneic with exertion although states no worsening. Patient eager to go home. Ddimer elevated at 2 and will increase lovenox to bid. Repeat labs ordered. 08/06/2021 Patient is seen and evaluated in follow up today and respiratory has worsened and now requiring 15L HF along with 15 L non-rebreather. Patient is continued on IV dexamathasone, lovenox bid, vitamin and zinc supplements and continued of Remdesivir with pulmonary and ID following. D-dimer also elevated and 9.91 compared to 2.37 yesterday. bilateral venous doppler and CTA ordered to evaluate for any DVT or PE. Encouraged increased activity as tolerated and continue with IS use. Chest xray today shows stable bilateral patchy infiltrates. Will increase lovenox to bid 08/07/2021 Patient sitting up in chair. Continues on 15L NRB and 15L High flow cannula with an oxygen saturation of 93 to 94%. Patient continues on IV decadron, lovenox BID, vitamins, zinc. Followed closely by pulmonary. No acute events overnight, patients main concern is ongoing shortness of breath. Temp 99.4, heart rate 79, blood pressure 148/81, respirations 24. Labs today: WBC 4.8, sodium 134, chloride 97, potassium 4.4. Glucose in the 130s. Prognosis remains guarded, continue with all other supportive care. 08/08/2021 Patient evaluated today sitting up in the chair. He continues on a 15L NRB and 15l HF cannula, oxygen saturation today is 93%. No acute events overnight. Blood pressure 124/84 he is febrile low-grade 99.9 axillary, heart rate 80. He reports increasing cough and sputum production. He is being followed closely by ID and pulmonary services. There are no labs today, repeat them tomorrow. Continues on vitamin C, vitamin D3, Decadron placed day, Lovenox twice a day, zinc. He completed a course of IV remdesivir. REVIEW OF SYSTEMS: CONSTITUTIONAL: No fever, no malaise, no fatigue. CARDIOVASCULAR: No chest pain, no palpitations PULMONARY: reports shortness of breath mild at rest worse with exertion, even to commode. GASTROINTESTINAL: no nausea or vomiting noted NEUROLOGICAL: No headaches, no weakness, no numbness. GENITOURINARY: Denies any burning, frequency, or urgency. PHYSICAL EXAMINATION: GENERAL: The patient is alert and oriented x3, acute respiratory distress. Well developed, well nourished. HEENT: Pupils are round and equally reacting to light. EOMI. No scleral icterus. No conjunctival pallor. Normocephalic, atraumatic. No pharyngeal erythema. No thyromegaly. CARDIOVASCULAR: S1 and S2 present. No murmurs, rubs, or gallops. PULMONARY: Chest is clear to auscultation, with some coarse rales noted in the bases. ABDOMEN: Soft, nontender, nondistended, normoactive bowel sounds. No palpable organomegaly. MUSCULOSKELETAL: No joint swelling or deformity. EXTREMITIES: No cyanosis, clubbing, or pedal edema. NEUROLOGICAL: Gross neurological examination did not reveal any focal deficits. SKIN: No rashes. Assessment: -COVID-19 pneumonia and acute hypoxic respiratory failure secondary to COVID-19 pneumonia on 15L HF and 15L NRB. -elevated d-dimer without evidence of PE or DVT as noted on imaging -Diarrhea secondary to COVID-19 infection, improving -Hyponatremia hypovolemic hyponatremia secondary to diarrhea, improved with IV fluids -Elevated liver enzymes secondary to systemic inflammatory response from COVID- 19, trending down -Hypertension -DVT prophylaxis: Lovenox -Full code Plan: Continue with current medications. Wean FI02 as tolerated. Respiratory status maintained on 15L HF and 15L non-rebreather. CTa was done due to elevated d- dimer and was negative for PE. Bilateral venous dopplers negative for DVT. Pulmonary following and ID. Encourage IS and activity as tolerated. Repeat am labs along with inflammatory markers. Continues on covid supplements and lovenox bid, dexamethasone and will continue. Completed remdesivir. Will continue to monitor closely. Objective - Vital Signs Vital signs: Vital Signs Temp 99.2 F 08/08/21 14:00 Pulse 80 08/08/21 14:00 Resp 22 08/08/21 14:00 BP 124/84 08/08/21 14:00 Pulse Ox 93 L 08/08/21 14:00 Intake & Output 08/07/21 08/08/21 08/08/21 18:59 06:59 18:59 Intake Total 1999 Balance 1999 Intake: Oral 1999 Other: # Voids 1 - Labs CBC & Chem 7: 08/07/21 09:59 08/07/21 09:59 Labs: Microbiology - Last 24 Hours (Table) 08/03/21 10:15 Blood Culture - Preliminary Blood No Growth after 120 hours 08/03/21 10:00 Blood Culture - Preliminary Blood No Growth after 120 hours
--- NOTE | 2021-08-08 16:15 | P.PN ---
Subjective Progress Note Date: 08/08/21 Pleasant 50-year-old male patient with known history of hypertension otherwise negative medical history, started getting sick approximately 5 days ago. Around , the patient started having GI symptoms of diarrhea and he was unable to keep anything him. The patient became progressively more weak and lethargic and in the same time he started developing shortness of breath. He went to an outpatient clinic with the patient was found to be hypoxic and he was directed to us for further care. The patient immediately checked positive for COVID 19. He is not vaccinated. His white cell count is at 2.2 with a hemoglobin of 14.3 with a platelet count of 131. His sodium was at 126 consistent with his underlying diarrhea. He had a component of non-anion gap metabolic acidosis secondary to diarrhea and his serum bicarb was at 19. LDH level was 1651 and he did have some mild transaminitis. Troponins are negative. Pro-calcitonin level was 0.1 and a CRP level is at 8.3. The patient was started on Decadron. The patient was also started on IV fluids. He is also on Decadron for DVT prophylaxis. Currently is on 7 L of oxygen by nasal cannula. Note that he started off with 4 L and his oxygen requirements progressed and currently is on 7 L. No altered mentation. On 08/04/2021 patient seen in follow-up on medical surgical floor, he is awake and alert, in no acute distress, he is currently at 10 L of oxygen and this is an increase in his FiO2 since yesterday however clinical patient states she feels better, breathing easier, his sat on 10 L and 93%. He's been ambulating somewhat to the bathroom, tolerates activity well. No fever or chills, no chest discomfort, occasional cough, no phlegm production. He was started on Remdesivir, today's day 2 of treatment, he continues on Decadron 6 mg twice a day, and prophylactic Lovenox in addition to multivitamins. He is on point of the same at a rate of 100 mL per hour, his oral intake is good. Today's labs have been reviewed, his white count is 5.5, hemoglobin is 13.5, platelets are 145, improving, d-dimer is normal at 0.45, electrolytes and renal profile are unremarkable, his inflammatory markers are improving, his LDH is down to 495 from 1240 and yesterday's labs, and CRP is down to 8.0, his pro-calcitonin level was negative at 0.13 On 08/05/2021 patient seen in follow-up on medical surgical floor, clinically patient looks good, looks to be in no acute distress, awake and alert, oriented 3, sitting up in a recliner, although she does still require high flow oxygen currently at 8 L and pulse ox is 91%, denies any worsening dyspnea, he does have occasional dry nonproductive cough, afebrile, blood pressure has been stable. His diarrhea has resolved, his labs today have been reviewed, his serum sodium level is improving on today's labs, and is now within normal limits at 137, dressing electrolytes and renal profile were unremarkable. His LDH has increased on today's labs at the 1275, and CRP is 5.6, improved, his potassium level was -0.13 a few days ago, his white count is 5.56 on yesterday's labs, and hemoglobin is 13.5. he continues on Decadron 6 mg IV push twice daily, Remdesivir, he is on prophylactic dose Lovenox 40 daily. No nausea or vomiting, tolerating oral intake. 08/06/2021, the patient feels well. Clinically, the patient is feeling well. He reports improvement in his symptoms. Nevertheless, his oxidation is been worse the patient is having high oxygen requirements and the patient is currently on 100% nonrebreather facemask in addition to 15 L nasal cannula. Note that the patient was only on 8 L yesterday. No nausea. No vomiting. No diarrhea. His diarrhea has subsided. His white cell count remains at 5.9, he is d-dimer is at 9.9 which is higher compared to yesterday. The sodium is at 139, potassium is 4.2, glucose of 135, LFTs show some mild transaminitis, LDH level is lower at 561 compared to yesterday with a CRP level of tics 0.1. The patient was receiving Decadron and the patient was receiving Remdesivir. He was started on Remdesivir treatment on 08/04/2021 and today's day #3 of treatment. He remains on Lovenox for DVT prophylaxis and is receiving 40 mg subcu every 12 hours. We'll check Doppler of the lower extremities. We'll check CT angiogram. The patient is seen today 08/07/2021 in follow-up on the regular medical floor. He is currently sitting up in a chair at the bedside. Awake and alert in no acute distress. He states he is feeling quite well. He still however requiring 15 L high per nasal cannula plus a nonrebreather mask. He is afebrile. Hemodynamically stable. CT angiogram revealed no evidence of pulmonary embolism. There is diffuse ground glass opacities and infiltrates consistent with COVID-19 pneumonia. White count 4.8. Hemoglobin 13.0. Lymphocytes 0.1. Sodium 134. Potassium 4.4. Creatinine 0.70. He is continued on Decadron, Lovenox, vitamin supplements. Day number 5 of Remdesivir. The patient seen today 08/08/2021 in follow-up on the regular medical floor. He is seen just getting back from the bathroom and he is quite dyspneic on minimal exertion. He was still on 15 L high flow but without the nonrebreather mask and his O2 saturation was in the mid 50s but did come back up into the low 90s after 5 minutes of rest and nonrebreather back on. No new labs today.v He has completed his course of Remdesivir. Continued on Decadron, Lovenox, vitamin supplements. Objective - Vital Signs Vital signs: Vital Signs Temp 99.2 F 08/08/21 14:00 Pulse 80 08/08/21 14:00 Resp 22 08/08/21 14:00 BP 124/84 08/08/21 14:00 Pulse Ox 93 L 08/08/21 14:00 Intake & Output 08/07/21 08/08/21 08/08/21 18:59 06:59 18:59 Intake Total 1999 Balance 1999 Intake: Oral 1999 Other: # Voids 1 - Exam GENERAL EXAM: Alert, very pleasant, 50-year-old male patient, up in a chair at the bedside, on 15 L high flow nasal cannula plus a nonrebreather mask, fairly comfortable in no apparent distress. HEAD: Normocephalic/atraumatic. EYES: Normal reaction of pupils, equal size. Conjunctiva pink, sclera white. NOSE: Clear with pink turbinates. THROAT: No erythema or exudates. NECK: No masses, no JVD, no thyroid enlargement, no adenopathy. CHEST: No chest wall deformity. Symmetrical expansion. LUNGS: Equal air entry with bibasilar crackles CVS: Regular rate and rhythm, normal S1 and S2, no gallops, no murmurs, no rubs ABDOMEN: Soft, nontender. No hepatosplenomegaly, normal bowel sounds, no guarding or rigidity. EXTREMITIES: No clubbing, no edema, no cyanosis, 2+ pulses and upper and lower extremities. MUSCULOSKELETAL: Muscle strength and tone normal. SPINE: No scoliosis or deformity SKIN: No rashes CENTRAL NERVOUS SYSTEM: No focal deficits, tone is normal in all 4 extremities. PSYCHIATRIC: Alert and oriented -3. Appropriate affect. Intact judgment and insight. - Labs CBC & Chem 7: 08/07/21 09:59 08/07/21 09:59 Labs: Microbiology - Last 24 Hours (Table) 08/03/21 10:15 Blood Culture - Preliminary Blood No Growth after 120 hours 08/03/21 10:00 Blood Culture - Preliminary Blood No Growth after 120 hours Assessment and Plan Assessment: 1 acute COVID 19 related pneumonia. The patient has bilateral pulmonary infi ltrates and the patient has crackles in the mid and lower lung is bilaterally and the patient is currently on 15 L oxygen by nasal cannula along with 100% on a beta facemask. Pulmonary Embolism ruled out. Doppler of lower extremities negative for DVT. Completed a course of Remdesivir 2 acute hypoxic respiratory failure currently on 15 L of oxygen by nasal cannula as a nonrebreather mask 3 acute diarrhea, improving and this is related to COVID 19 499 gap metabolic acidosis secondary to diarrhea 5 acute hypovolemic hyponatremia secondary to diarrhea 6 leukopenia and thrombocytopenia, likely related to COVID 19 infection. The patient hematologic profile has improved. The white cell count is up to 5.9. The platelet count is up to 184. 7 hypertension Plan The patient was seen and evaluated Currently stable on 15 L high flow plus and nonrebreather mask Titrate the FiO2 as tolerate Completed Remdesivir Continue Lovenox, Decadron, vitamin supplement Follow-up chest x-ray and labs in a.m. We will continue to follow
[2021-08-08] MEDS: BARICITINIB 2 MG TABLET PO SCH ×2 (20:54→20:57)
--- NOTE | 2021-08-08 21:53 | PN ---
PROGRESS NOTE DATE OF SERVICE: 08/08/2021 REASON FOR FOLLOWUP: COVID-19 pneumonia. INTERVAL HISTORY: The patient is afebrile. The patient is breathing slightly comfortably. Still requiring high-flow oxygen, though. The patient denies having any chest pain or worsening cough or sputum production. No abdominal pain or diarrhea. PHYSICAL EXAMINATION: Blood pressure is 124/82 with a pulse of 80, temperature 98.7. He is 96% on 15 L high- flow oxygen. General description is a middle-aged male up in the chair in no distress. Respiratory system: Unlabored breathing, decreased intensity of breath sounds. No wheeze. Heart S1, S2. Regular rate and rhythm. Abdomen soft, no tenderness. LABS: Hemoglobin 4.6, creatinine 4.8. Blood culture has been negative. DIAGNOSTIC IMPRESSION AND PLAN: Patient with acute respiratory failure secondary to COVID-19 pneumonia, minimal clinical improvement. Condition remains critical. Patient to continue with baricitinib, Lovenox, dexamethasone, zinc and ascorbic acid along with respiratory support. Monitor his clinical course closely. MMODELLL / DANIELN: [id number] /
--- NOTE | 2021-08-09 07:26 | XR ---
EXAMINATION TYPE: XR chest 1V portable DATE OF EXAM: 08/09/2021 CLINICAL HISTORY: Difficulty breathing and covid pneumonia progress study. TECHNIQUE: Single AP portable upright view of the chest is obtained. COMPARISON: Chest x-ray from 3 days earlier and older studies FINDINGS: Continued low lung volumes. Continued multifocal and confluent bilateral mid to lower lung opacities greatest in the periphery . Cardiac silhouette size is stable and upper limits of normal. Multilevel spurring of thoracic spine redemonstrated. IMPRESSION: Low lung volumes with bilateral multifocal and confluent mid to lower lung opacities grea test in the periphery consistent with covid-19 infection. No significant change from most recent x-ra y.
[2021-08-09] MEDS: ALBUTEROL HFA INHALER INHALATION PRN ×2 (07:48→12:07)
[2021-08-09] MEDS: MULTIVITAMINS, THERA 1 EACH TAB PO SCH (08:31)
[2021-08-09] MEDS: FAMOTIDINE 20 MG TAB PO SCH (08:32)
[2021-08-09] MEDS: ASCORBIC ACID 500 MG TAB PO SCH (08:32)
[2021-08-09] MEDS: ZINC SULFATE 220 MG CAP PO SCH (08:32)
[2021-08-09] MEDS: CHOLECALCIFEROL 25 MCG (1000 IU) TABLET PO SCH (08:32)
[2021-08-09] MEDS: BARICITINIB 2 MG TABLET PO SCH (08:33)
[2021-08-09] MEDS: DEXAMETHASONE SOD PHOSPHATE 10 MG/ML 1 ML VIAL IVP SCH ×2 (08:33→20:17)
[2021-08-09] MEDS: ENOXAPARIN 60 MG/0.6 ML SYRINGE SQ SCH ×2 (08:33→20:16)
[2021-08-09 08:54] LABS: Basophils # (A) 0 X 10*3/uL (0.00-0.10); Basophils % (A) 0 %; Eosinophils # (A) 0.01 X 10*3/uL (0.04-0.35); Eosinophils % (A) 0.2 %; HCT 42.3 % (39.6-50.0); HGB 13.7 g/dL (13.0-17.0); Lymphocytes % (A) 4.1 %; MCH 31.1 pg (27.0-32.0); MCHC 32.4 g/dL (32.0-37.0); MCV 96.1 fL (80.0-97.0); Mean Platelet Volume 9.7 fL (9.5-12.2); Monocytes # (A) 0.11 X 10*3/uL (0.20-1.00); Monocytes % (A) 2.3 %; Neutrophils % (A) 92.6 %; Platelet Count 160 X 10*3/uL (140-440); RDW 11.9 % (11.5-14.5); WBC 4.86 X 10*3/uL (4.50-10.00)
[2021-08-09 09:52] LABS: C Reactive Protein 7.9 mg/dL (0.00-0.80)
[2021-08-09 09:53] VITALS: BMI 34.4
[2021-08-09 10:30] LABS: African American GFR (CKD) 119.9 (60.0-200.0); Anion Gap 12.7 mmol/L (10.00-18.00); BUN/Creat Ratio 17.63 Ratio (12.00-20.00); Blood Urea Nitrogen 14.1 mg/dL (9.0-27.0); Calcium 8.7 mg/dL (8.7-10.3); Carbon Dioxide 27.3 mmol/L (20.0-27.5); Non-African American GFR(CKD) 103.4 (60.0-200.0); Potassium 5.4 mmol/L (3.5-5.5)
--- NOTE | 2021-08-09 18:07 | P.PN ---
Subjective Progress Note Date: 08/09/21 Pleasant 50-year-old male patient with known history of hypertension otherwise negative medical history, started getting sick approximately 5 days ago. Around , the patient started having GI symptoms of diarrhea and he was unable to keep anything him. The patient became progressively more weak and lethargic and in the same time he started developing shortness of breath. He went to an outpatient clinic with the patient was found to be hypoxic and he was directed to us for further care. The patient immediately checked positive for COVID 19. He is not vaccinated. His white cell count is at 2.2 with a hemoglobin of 14.3 with a platelet count of 131. His sodium was at 126 consistent with his underlying diarrhea. He had a component of non-anion gap metabolic acidosis secondary to diarrhea and his serum bicarb was at 19. LDH level was 1651 and he did have some mild transaminitis. Troponins are negative. Pro-calcitonin level was 0.1 and a CRP level is at 8.3. The patient was s tarted on Decadron. The patient was also started on IV fluids. He is also on Decadron for DVT prophylaxis. Currently is on 7 L of oxygen by nasal cannula. Note that he started off with 4 L and his oxygen requirements progressed and currently is on 7 L. No altered mentation. On 08/04/2021 patient seen in follow-up on medical surgical floor, he is awake and alert, in no acute distress, he is currently at 10 L of oxygen and this is an increase in his FiO2 since yesterday however clinical patient states she feels better, breathing easier, his sat on 10 L and 93%. He's been ambulating somewhat to the bathroom, tolerates activity well. No fever or chills, no chest discomfort, occasional cough, no phlegm production. He was started on Remdesivir, today's day 2 of treatment, he continues on Decadron 6 mg twice a day, and prophylactic Lovenox in addition to multivitamins. He is on point of the same at a rate of 100 mL per hour, his oral intake is good. Today's labs have been reviewed, his white count is 5.5, hemoglobin is 13.5, platelets are 145, improving, d-dimer is normal at 0.45, electrolytes and renal profile are unremarkable, his inflammatory markers are improving, his LDH is down to 495 from 1240 and yesterday's labs, and CRP is down to 8.0, his pro-calcitonin level was negative at 0.13 On 08/05/2021 patient seen in follow-up on medical surgical floor, clinically patient looks good, looks to be in no acute distress, awake and alert, oriented 3, sitting up in a recliner, although she does still require high flow oxygen currently at 8 L and pulse ox is 91%, denies any worsening dyspnea, he does have occasional dry nonproductive cough, afebrile, blood pressure has been stable. His diarrhea has resolved, his labs today have been reviewed, his serum sodium level is improving on today's labs, and is now within normal limits at 137, dressing electrolytes and renal profile were unremarkable. His LDH has increased on today's labs at the 1275, and CRP is 5.6, improved, his potassium level was -0.13 a few days ago, his white count is 5.56 on yesterday's labs, and hemoglobin is 13.5. he continues on Decadron 6 mg IV push twice daily, Remdesivir, he is on prophylactic dose Lovenox 40 daily. No nausea or vomiting, tolerating oral intake. On 08/09/2031 patient seen in follow-up on medical surgical floor, he is resting comfortably in bed, appears to be in no acute distress, he is on 15 L high flow oxygen with pulse ox of 91-92%. Although requiring high flow oxygen he does not appear to be in any acute distress, today's chest x-ray showing low lung volumes and bilateral multifocal and confluent mid to lower lung opacities consistent with his history of COVID-19 infection, no significant change compared to most recent chest x-ray. He continues on baricitinib which was started yesterday on 08/08/2021, and Decadron 6 mg twice daily, prophylactic Lovenox at 60 mg twice daily. Patient had a recent CT angiogram of the chest on 08/06/2021 that showed no evidence of pulmonary embolism and no evidence of DVT on lower extremity Dopplers, however his d-dimer continues to trend up and is up to 32.3 on today's labs, his white count is 4.8, hemoglobin is 13.7, lymphocyte count remains low at 0.20, electrolytes and renal profile are unremarkable, his inflammatory markers relatively stable compared to yesterday's labs at 639, but overall improved since admission, CRP is 7.9, slightly improved from yesterday. He was retested for COVID-19 and was found to be negative. Objective - Vital Signs Vital signs: Vital Signs Temp 98.5 F 08/09/21 14:00 Pulse 89 08/09/21 14:00 Resp 16 08/09/21 14:00 BP 150/88 08/09/21 14:00 Pulse Ox 91 L 08/09/21 14:00 Intake & Output 08/08/21 08/09/21 08/09/21 18:59 06:59 18:59 Intake Total 3000 360 Balance 3000 360 Weight 108.862 kg Intake: Oral 3000 360 Other: # Voids 5 - Exam GENERAL EXAM: Alert, very pleasant, 50-year-old white male, on 15 L of oxygen a pulse ox of 91% comfortable in no apparent distress. HEAD: Normocephalic/atraumatic. EYES: Normal reaction of pupils, equal size. Conjunctiva pink, sclera white. NOSE: Clear with pink turbinates. THROAT: No erythema or exudates. NECK: No masses, no JVD, no thyroid enlargement, no adenopathy. CHEST: No chest wall deformity. Symmetrical expansion. LUNGS: Equal air entry with bibasilar crackles CVS: Regular rate and rhythm, normal S1 and S2, no gallops, no murmurs, no rubs ABDOMEN: Soft, nontender. No hepatosplenomegaly, normal bowel sounds, no guarding or rigidity. EXTREMITIES: No clubbing, no edema, no cyanosis, 2+ pulses and upper and lower extremities. MUSCULOSKELETAL: Muscle strength and tone normal. SPINE: No scoliosis or deformity SKIN: No rashes CENTRAL NERVOUS SYSTEM: Alert and oriented -3. No focal deficits, tone is normal in all 4 extremities. PSYCHIATRIC: Alert and oriented -3. Appropriate affect. Intact judgment and insight. - Labs CBC & Chem 7: 08/09/21 06:04 08/09/21 06:04 Labs: Abnormal Lab Results - Last 24 Hours (Table) 08/09/21 08/09/21 08/09/21 Range/Units 06:04 06:04 06:04 Lymphocytes # 0.20 L (0.90-5.00) X 10*3/uL Monocytes # 0.11 L (0.20-1.00) X 10*3/uL Eosinophils # 0.01 L (0.04-0.35) X 10*3/uL D-Dimer 32.36 H (<0.60) mg/L FEU Glucose 132 H (70-110) mg/dL Lactate Dehydrogenase 639 H (120-246) U/L C-Reactive Protein 7.90 H (0.00-0.80) mg/dL Microbiology - Last 24 Hours (Table) 08/03/21 10:00 Blood Culture - Final Blood No Growth after 144 hours 08/03/21 10:15 Blood Culture - Final Blood No Growth after 144 hours Assessment and Plan Plan: #1. acute COVID 19 related pneumonia. The patient has bilateral pulmonary infiltrates and the patient has crackles in the mid and lower lung is bilaterally and the patient is currently on 7 L of oxygen by nasal cannula. Symptoms started less than a week ago and the patient progressed rather rapidly. The patient's initial symptoms were mainly GI related as the patient presented with diarrhea and it seems that the diarrhea is subsiding at this point in time. patient was started on the Remdesivir on 08/03/2021. Patient's hypoxemia has progressed, patient is currently on 15 L high flow nasal cannula, and was started on Baricitinib however he is refusing it stating it is an experimental treatment #2. acute hypoxic respiratory failure, worsened, and patient is currently on 15 L high flow nasal cannula #3. acute diarrhea, related to COVID 19, resolved #4. Anion gap metabolic acidosis secondary to diarrhea, improved, diarrhea has resolved #5. acute hypovolemic hyponatremia secondary to diarrhea, resolved #6. leukopenia and thrombocytopenia, likely related to COVID 19 infection, resolved #7. hypertension Plan: Continue Baricitinib, however patient is refusing it stating it is experimental treatment Continue Decadron 6 mg twice daily, Lovenox at 60 mg twice daily, Today's labs have been noted, d-dimer continues to trend up although his recent CT angiogram of the chest and the lower extremity Dopplers were negative for evidence of PE or DVT We'll continue with current dose Lovenox at intermediate dosing We'll continue to follow his inflammatory markers and d-dimer Prognosis is guarded I performed a history & physical examination of the patient and discussed their management with my nurse practitioner, Elsa Godinez. I reviewed the nurse practitioner's note and agree with the documented findings and plan of care. Lung sounds are positive for basilar rales throughout the lung meyer. The findings and the impression was discussed with the patient. I attest to the documentation by the nurse practitioner. Time with Patient: Less than 30
--- NOTE | 2021-08-09 22:29 | P.PN ---
Subjective Progress Note Date: 08/09/21 50-year-old male came in with the complaints of diarrhea which started about 4-5 days ago. Patient denied any significant fever patient doesn't have any fever here. Patient is found to be hypoxic and patient is presently on 7 L of oxygen. Patient is also found to be hyponatremic from diarrhea. Patient is found to have positive COVID-19 PCR. Patient d-dimer is 0.5 to does have elevated inflammatory markers along with elevated liver enzymes. Patient was not vaccinated for Covid 19 08/04/2021 Patient is seen in follow up this morning maintained on 10L HF and pulmonary and ID following. Patient is receiving Remdesivir and also maintained on IV dexamethasone, lovenox, vitamin and zinc supplements and will continue. Weaning FI02 as tolerated. Encouraged increased activity as tolerated. Will order incentive spirometer and follow up chest xray in the am. Patient having some difficulty in sleeping and requesting a sleep aid. 08/05/2021 Patient is seen in follow up this morning and currently sitting up at the window in no acute distress. Pulmonary following and continued on Remdesivir along with dexamethasone, lovenox and vitamin and zinc supplements. Currently maintained on 8L HF and dyspneic with exertion although states no worsening. Patient eager to go home. Ddimer elevated at 2 and will increase lovenox to bid. Repeat labs ordered. 08/06/2021 Patient is seen and evaluated in follow up today and respiratory has worsened and now requiring 15L HF along with 15 L non-rebreather. Patient is continued on IV dexamathasone, lovenox bid, vitamin and zinc supplements and continued of Remdesivir with pulmonary and ID following. D-dimer also elevated and 9.91 compared to 2.37 yesterday. bilateral venous doppler and CTA ordered to evaluate for any DVT or PE. Encouraged increased activity as tolerated and continue with IS use. Chest xray today shows stable bilateral patchy infiltrates. Will increase lovenox to bid 08/07/2021 Patient sitting up in chair. Continues on 15L NRB and 15L High flow cannula with an oxygen saturation of 93 to 94%. Patient continues on IV decadron, lovenox BID, vitamins, zinc. Followed closely by pulmonary. No acute events overnight, patients main concern is ongoing shortness of breath. Temp 99.4, heart rate 79, blood pressure 148/81, respirations 24. Labs today: WBC 4.8, sodium 134, chloride 97, potassium 4.4. Glucose in the 130s. Prognosis remains guarded, continue with all other supportive care. 08/08/2021 Patient evaluated today sitting up in the chair. He continues on a 15L NRB and 15l HF cannula, oxygen saturation today is 93%. No acute events overnight. Blood pressure 124/84 he is febrile low-grade 99.9 axillary, heart rate 80. He reports increasing cough and sputum production. He is being followed closely by ID and pulmonary services. There are no labs today, repeat them tomorrow. Continues on vitamin C, vitamin D3, Decadron placed day, Lovenox twice a day, zinc. He completed a course of IV remdesivir. 08/09/2021 Patient is seen in follow up this morning and continues on 15L HF NC along with non-rebreather. Patient d-dimer continues to elevate and was 32.36 today. Patient continues on Lovenox 60mg twice daily and will continue. Patient has completed remdesivir and was started on Baricitinib although is refusing this at this time. Patient states his has been on many anti-rheumatic medications for RA and feels this drug is experimental and prefers not to take this. Pulmonary following closely. Patient is extremely anxious about wanting to see his and will discuss with management about the protocol. Repeat covid testing was negative. Labs: White blood count is 4.86, hemoglobin is 13.7, platelets are 160, d-dimer is 32.36, sodium is 138, potassium 5.4, creatinine 0.8, LDH is 639, CRP is 7.9, repeat COVID-19 was negative REVIEW OF SYSTEMS: CONSTITUTIONAL: No fever, no malaise, no fatigue. CARDIOVASCULAR: No chest pain, no palpitations PULMONARY: reports continued shortness of breath although no worse. GASTROINTESTINAL: no nausea or vomiting noted NEUROLOGICAL: No headaches, no weakness, no numbness. GENITOURINARY: Denies any burning, frequency, or urgency. Active Medications Acetaminophen (Acetaminophen Tab 325 Mg Tab) 650 mg PO Q4HR PRN PRN Reason: Fever>101 Last Admin: 08/04/21 09:06 Dose: 650 mg Documented by: Albuterol Sulfate (Albuterol Hfa Inhaler) 2 puff INHALATION RT-Q6H PRN PRN Reason: Shortness Of Breath Or Wheezing Last Admin: 08/09/21 12:07 Dose: 2 puff Documented by: Ascorbic Acid (Ascorbic Acid 500 Mg Tab) 1,000 mg PO DAILY [facility] Last Admin: 08/09/21 08:32 Dose: 1,000 mg Documented by: Baricitinib (Baricitinib 2 Mg Tablet) 4 mg PO DAILY [facility] Stop: 08/21/21 09:01 Last Admin: 08/09/21 08:33 Dose: Not Given Documented by: Cholecalciferol (Cholecalciferol 25 Mcg (1000 Iu) Tablet) 50 mcg PO DAILY [facility] Last Admin: 08/09/21 08:32 Dose: 50 mcg Documented by: Dexamethasone Sodium Phosphate (Dexamethasone Sod Phosphate 10 Mg/Ml 1 Ml Vial) 6 mg IVP BID [facility] Last Admin: 08/09/21 08:33 Dose: 6 mg Documented by: Enoxaparin Sodium (Enoxaparin 60 Mg/0.6 Ml Syringe) 60 mg SQ BID [facility] Last Admin: 08/09/21 08:33 Dose: 60 mg Documented by: Famotidine (Famotidine 20 Mg Tab) 40 mg PO DAILY [facility] Last Admin: 08/09/21 08:32 Dose: 40 mg Documented by: Multivitamins (Multivitamins, Thera 1 Each Tab) 1 each PO DAILY [facility] Last Admin: 08/09/21 08:31 Dose: 1 each Documented by: Naloxone HCl (Naloxone 0.4 Mg/Ml 1 Ml Vial) 0.2 mg IV Q2M PRN PRN Reason: Opioid Reversal Zinc Sulfate (Zinc Sulfate 220 Mg Cap) 220 mg PO DAILY [facility] Last Admin: 08/09/21 08:32 Dose: 220 mg Documented by: Zolpidem Tartrate (Zolpidem 10 Mg Tab) 10 mg PO HS PRN PRN Reason: Insomnia PHYSICAL EXAMINATION: GENERAL: The patient is alert and oriented x3, no acute respiratory distress. Well developed, well nourished. On 15L HF NC and non-rebreather HEENT: Pupils are round and equally reacting to light. EOMI. No scleral icterus. No conjunctival pallor. Normocephalic, atraumatic. No pharyngeal erythema. No thyromegaly. CARDIOVASCULAR: S1 and S2 present. No murmurs, rubs, or gallops. PULMONARY: Chest is clear to auscultation, with some coarse rhonchi and crackles noted at the bases. ABDOMEN: Soft, nontender, nondistended, normoactive bowel sounds. No palpable organomegaly. MUSCULOSKELETAL: No joint swelling or deformity. EXTREMITIES: No cyanosis, clubbing, or pedal edema. NEUROLOGICAL: Gross neurological examination did not reveal any focal deficits. SKIN: No rashes. Assessment: -COVID-19 pneumonia with acute hypoxic respiratory failure secondary to COVID- 19 pneumonia -elevated d-dimer without evidence of PE or DVT as noted on imaging -Diarrhea secondary to COVID-19 infection, improving -Hyponatremia hypovolemic hyponatremia secondary to diarrhea, improved -Elevated liver enzymes secondary to systemic inflammatory response from COVID- 19, trending down -DVT prophylaxis: Lovenox BID -Full code Plan: Continue with current medications. Wean FI02 as tolerated. Respiratory status guarded and maintained on 15L HF and 15L non-rebreather. Continue lovenox 60 BID along with IV dexamethasone and covid supplements and monitor closely. Pulmonary following and ID. Encourage IS and activity as tolerated. Repeat am labs along with inflammatory markers. Remdesivir has been completed. Baricitinib was ordered and patient refusing at this time. Will continue to monitor closely. Objective - Vital Signs Vital signs: Vital Signs Temp 97.7 F 08/09/21 06:00 Pulse 68 08/09/21 06:00 Resp 18 08/09/21 06:00 BP 99/63 08/09/21 06:00 Pulse Ox 88 L 08/09/21 06:00 Intake & Output 08/08/21 08/09/21 08/09/21 18:59 06:59 18:59 Intake Total 3000 Balance 3000 Intake: Oral 3000 Other: # Voids 5 - Labs CBC & Chem 7: 08/09/21 06:04 08/09/21 06:04 Labs: Abnormal Lab Results - Last 24 Hours (Table) 08/09/21 08/09/21 Range/Units 06:04 06:04 Lymphocytes # 0.20 L (0.90-5.00) X 10*3/uL Monocytes # 0.11 L (0.20-1.00) X 10*3/uL Eosinophils # 0.01 L (0.04-0.35) X 10*3/uL D-Dimer 32.36 H (<0.60) mg/L FEU Microbiology - Last 24 Hours (Table) 08/03/21 10:15 Blood Culture - Preliminary Blood No Growth after 120 hours 08/03/21 10:00 Blood Culture - Preliminary Blood No Growth after 120 hours
--- NOTE | 2021-08-09 22:42 | PN ---
PROGRESS NOTE DATE OF SERVICE: 08/09/2021 REASON FOR FOLLOWUP: COVID-19 pneumonia. INTERVAL HISTORY: Patient is afebrile. The patient is currently breathing comfortably. The patient denies having any chest pain. No worsening shortness of breath. Did have a cough, not bringing up any sputum. No abdominal pain. No diarrhea. PHYSICAL EXAMINATION: Blood pressure 133/74 with a pulse of 69, temperature 97.6. He is 93% on room air. General description is a middle-aged male lying in bed in no distress. Respiratory system: Unlabored breathing, decreased intensity of breath sounds. No wheeze. Heart S1, S2. Regular rate and rhythm. Abdomen soft, no tenderness. LABS: Hemoglobin is 13.1, white count 4.86, creatinine 0.8. DIAGNOSTIC IMPRESSION AND PLAN: Patient with acute respiratory failure secondary to severe COVID-19 pneumonia in this patient currently on Baricitinib, dexamethasone, Lovenox, zinc and ascorbic acid to continue along with respiratory support and monitor clinical course closely. MMODL / IJN: [id number] /
[2021-08-10] MEDS: FAMOTIDINE 20 MG TAB PO SCH (07:36)
[2021-08-10] MEDS: ZINC SULFATE 220 MG CAP PO SCH (07:36)
[2021-08-10] MEDS: CHOLECALCIFEROL 25 MCG (1000 IU) TABLET PO SCH (07:36)
[2021-08-10] MEDS: ASCORBIC ACID 500 MG TAB PO SCH (07:36)
[2021-08-10] MEDS: DEXAMETHASONE SOD PHOSPHATE 10 MG/ML 1 ML VIAL IVP SCH ×2 (07:37→19:50)
[2021-08-10] MEDS: MULTIVITAMINS, THERA 1 EACH TAB PO SCH (07:37)
[2021-08-10] MEDS: ENOXAPARIN 60 MG/0.6 ML SYRINGE SQ SCH ×2 (07:37→19:50)
[2021-08-10] MEDS: ALBUTEROL HFA INHALER INHALATION PRN ×3 (08:09→15:43)
[2021-08-10 09:40] LABS: Basophils # (A) 0.01 X 10*3/uL (0.00-0.10); Basophils % (A) 0.2 %; Eosinophils # (A) 0.03 X 10*3/uL (0.04-0.35); Eosinophils % (A) 0.5 %; HCT 42.5 % (39.6-50.0); Lymphocytes # (A) 0.32 X 10*3/uL (0.90-5.00); Lymphocytes % (A) 5.8 %; MCH 31.6 pg (27.0-32.0); MCHC 32.9 g/dL (32.0-37.0); MCV 95.9 fL (80.0-97.0); Mean Platelet Volume 9.6 fL (9.5-12.2); Monocytes # (A) 0.14 X 10*3/uL (0.20-1.00); Monocytes % (A) 2.5 %; Neutrophils # (A) 4.93 X 10*3/uL (1.80-7.70); Neutrophils % (A) 89.7 %; Platelet Count 163 X 10*3/uL (140-440); RBC 4.43 X 10*6/uL (4.40-5.60); RDW 11.9 % (11.5-14.5)
--- NOTE | 2021-08-10 11:05 | P.PN ---
Subjective Progress Note Date: 08/10/21 Pleasant 50-year-old male patient with known history of hypertension otherwise negative medical history, started getting sick approximately 5 days ago. Around , the patient started having GI symptoms of diarrhea and he was unable to keep anything him. The patient became progressively more weak and lethargic and in the same time he started developing shortness of breath. He went to an outpatient clinic with the patient was found to be hypoxic and he was directed to us for further care. The patient immediately checked positive for COVID 19. He is not vaccinated. His white cell count is at 2.2 with a hemoglobin of 14.3 with a platelet count of 131. His sodium was at 126 consistent with his underlying diarrhea. He had a component of non-anion gap metabolic acidosis secondary to diarrhea and his serum bicarb was at 19. LDH level was 1651 and he did have some mild transaminitis. Troponins are negative. Pro-calcitonin level was 0.1 and a CRP level is at 8.3. The patient was s tarted on Decadron. The patient was also started on IV fluids. He is also on Decadron for DVT prophylaxis. Currently is on 7 L of oxygen by nasal cannula. Note that he started off with 4 L and his oxygen requirements progressed and currently is on 7 L. No altered mentation. On 08/04/2021 patient seen in follow-up on medical surgical floor, he is awake and alert, in no acute distress, he is currently at 10 L of oxygen and this is an increase in his FiO2 since yesterday however clinical patient states she feels better, breathing easier, his sat on 10 L and 93%. He's been ambulating somewhat to the bathroom, tolerates activity well. No fever or chills, no chest discomfort, occasional cough, no phlegm production. He was started on Remdesivir, today's day 2 of treatment, he continues on Decadron 6 mg twice a day, and prophylactic Lovenox in addition to multivitamins. He is on point of the same at a rate of 100 mL per hour, his oral intake is good. Today's labs have been reviewed, his white count is 5.5, hemoglobin is 13.5, platelets are 145, improving, d-dimer is normal at 0.45, electrolytes and renal profile are unremarkable, his inflammatory markers are improving, his LDH is down to 495 from 1240 and yesterday's labs, and CRP is down to 8.0, his pro-calcitonin level was negative at 0.13 On 08/05/2021 patient seen in follow-up on medical surgical floor, clinically patient looks good, looks to be in no acute distress, awake and alert, oriented 3, sitting up in a recliner, although she does still require high flow oxygen currently at 8 L and pulse ox is 91%, denies any worsening dyspnea, he does have occasional dry nonproductive cough, afebrile, blood pressure has been stable. His diarrhea has resolved, his labs today have been reviewed, his serum sodium level is improving on today's labs, and is now within normal limits at 137, dressing electrolytes and renal profile were unremarkable. His LDH has increased on today's labs at the 1275, and CRP is 5.6, improved, his potassium level was -0.13 a few days ago, his white count is 5.56 on yesterday's labs, and hemoglobin is 13.5. he continues on Decadron 6 mg IV push twice daily, Remdesivir, he is on prophylactic dose Lovenox 40 daily. No nausea or vomiting, tolerating oral intake. On 08/09/2031 patient seen in follow-up on medical surgical floor, he is resting comfortably in bed, appears to be in no acute distress, he is on 15 L high flow oxygen with pulse ox of 91-92%. Although requiring high flow oxygen he does not appear to be in any acute distress, today's chest x-ray showing low lung volumes and bilateral multifocal and confluent mid to lower lung opacities consistent with his history of COVID-19 infection, no significant change compared to most recent chest x-ray. He continues on baricitinib which was started yesterday on 08/08/2021, and Decadron 6 mg twice daily, prophylactic Lovenox at 60 mg twice daily. Patient had a recent CT angiogram of the chest on 08/06/2021 that showed no evidence of pulmonary embolism and no evidence of DVT on lower extremity Dopplers, however his d-dimer continues to trend up and is up to 32.3 on today's labs, his white count is 4.8, hemoglobin is 13.7, lymphocyte count remains low at 0.20, electrolytes and renal profile are unremarkable, his inflammatory markers relatively stable compared to yesterday's labs at 639, but overall improved since admission, CRP is 7.9, slightly improved from yesterday. He was retested for COVID-19 and was found to be negative. On 08/10/2021 patient seen in follow-up on medical surgical floor, she remains on 15 L per high flow nasal cannula in addition to 100% nonrebreather mask, he is fairly asymptomatic, however his pulse ox is only 84%. He does have persistent mild cough, no phlegm production, no complaints of chest discomfort, she has been get not to the bedside commode, tolerates activity fairly well. He is awake and alert, oriented 3, no signs of any altered mentation, his chest x- ray from yesterday showed low lung volumes with bilateral multifocal and confluent mid to lower lung opacities, stable, consistent with his history of COVID-19 infection. he has been refusing Baricitinib, stating that it is experimental treatment. He is still excepting Decadron, and his Lovenox is 60 mg twice daily which was increased yesterday, he continues on COVID-19 vitamins, no nausea vomiting or diarrhea, he is tolerating oral intake. Today's labs have been reviewed showing white blood cell count of 5.5, hemoglobin is 14.0, platelet count is 163, his lymphocyte count slightly improved and is up to 0.32, his d-dimer is still significantly elevated but improved from yesterday's value and is down to 26.03, his LDH, CRP and BMP levels are still pending, he was retested for COVID-19 yesterday and was found to be negative. Objective - Vital Signs Vital signs: Vital Signs Temp 97.5 F L 08/10/21 05:12 Pulse 63 08/10/21 05:12 Resp 21 08/10/21 05:12 BP 112/67 08/10/21 05:12 Pulse Ox 95 08/10/21 05:12 Intake & Output 08/09/21 08/10/21 08/10/21 18:59 06:59 18:59 Intake Total 1960 1200 Balance 1959 1199 Weight 108.862 kg Intake: Oral 1959 1199 Other: # Voids 7 2 # Bowel Movements 1 - Exam GENERAL EXAM: Alert, very pleasant, 50-year-old white male, on 15 L of oxygen with a nonrebreather mask with a non-rebreather mask with a pulse ox of 84% comfortable in no apparent distress. HEAD: Normocephalic/atraumatic. EYES: Normal reaction of pupils, equal size. Conjunctiva pink, sclera white. NOSE: Clear with pink turbinates. THROAT: No erythema or exudates. NECK: No masses, no JVD, no thyroid enlargement, no adenopathy. CHEST: No chest wall deformity. Symmetrical expansion. LUNGS: Equal air entry with bibasilar crackles CVS: Regular rate and rhythm, normal S1 and S2, no gallops, no murmurs, no rubs ABDOMEN: Soft, nontender. No hepatosplenomegaly, normal bowel sounds, no guarding or rigidity. EXTREMITIES: No clubbing, no edema, no cyanosis, 2+ pulses and upper and lower extremities. MUSCULOSKELETAL: Muscle strength and tone normal. SPINE: No scoliosis or deformity SKIN: No rashes CENTRAL NERVOUS SYSTEM: Alert and oriented -3. No focal deficits, tone is normal in all 4 extremities. PSYCHIATRIC: Alert and oriented -3. Appropriate affect. Intact judgment and insight. - Labs CBC & Chem 7: 08/10/21 06:26 08/09/21 06:04 Labs: Abnormal Lab Results - Last 24 Hours (Table) 08/10/21 08/10/21 Range/Units 06:26 06:26 Immature Gran # 0.07 H (0.00-0.04) X 10*3/uL Lymphocytes # 0.32 L (0.90-5.00) X 10*3/uL Monocytes # 0.14 L (0.20-1.00) X 10*3/uL Eosinophils # 0.03 L (0.04-0.35) X 10*3/uL D-Dimer 26.03 H (<0.60) mg/L FEU Microbiology - Last 24 Hours (Table) 08/03/21 10:00 Blood Culture - Final Blood No Growth after 144 hours 08/03/21 10:15 Blood Culture - Final Blood No Growth after 144 hours Assessment and Plan Plan: #1. acute COVID 19 related pneumonia. The patient has bilateral pulmonary infiltrates and the patient has crackles in the mid and lower lung is bilaterally and the patient is currently on 7 L of oxygen by nasal cannula. Symptoms started less than a week ago and the patient progressed rather rapidly. The patient's initial symptoms were mainly GI related as the patient presented with diarrhea and it seems that the diarrhea is subsiding at this point in time. patient was started on the Remdesivir on 08/03/2021. Patient's hypoxemia has progressed, patient is currently on 15 L high flow nasal cannula and nonrebreather, and was started on Baricitinib however he is refusing it stating it is an experimental treatment #2. acute hypoxic respiratory failure, worsened, and patient is currently on 15 L high flow nasal cannula and 100 % non-rebreather with o2 sat at 84%, patient will be started on Airvo #3. acute diarrhea, related to COVID 19, resolved #4. Anion gap metabolic acidosis secondary to diarrhea, improved, diarrhea has resolved #5. acute hypovolemic hyponatremia secondary to diarrhea, resolved #6. leukopenia and thrombocytopenia, likely related to COVID 19 infection, resolved #7. hypertension Plan: Switch the patient to Airvo in addition to nonrebreather mask, titrate FiO2 to keep O2 sats saturations at 88-90% We'll continue current medical treatments, patient has refused Baricitinib Continue Decadron 6 mg twice daily, Lovenox at 60 mg twice daily, Today's labs have been noted, d-dimer is improved although still significantly elevated, will continue current dose Lovenox at intermediate dosing 60 mg twice daily we'll continue to follow the number values on a daily basis, CTA chest was negative for PE, no evidence of DVT on bilateral lower extremity Dopplers We'll continue with current dose Lovenox at intermediate dosing We'll continue to follow his inflammatory markers and d-dimer Prognosis is guarded I performed a history & physical examination of the patient and discussed their management with my nurse practitioner, Elsa Godinez. I reviewed the nurse practitioner's note and agree with the documented findings and plan of care. Lung sounds are positive for basilar rales throughout the lung meyer. The findings and the impression was discussed with the patient. I attest to the documentation by the nurse practitioner. Time with Patient: Less than 30
[2021-08-10 11:51] LABS: African American GFR (CKD) 126.6 (60.0-200.0); Albumin 3.6 g/dL (3.8-4.9); Albumin/Globulin Ratio 1.38 (1.60-3.17); Anion Gap 14.6 mmol/L (10.00-18.00); BUN/Creat Ratio 21.86 Ratio (12.00-20.00); Blood Urea Nitrogen 15.3 mg/dL (9.0-27.0); C Reactive Protein 6.3 mg/dL (0.00-0.80); Carbon Dioxide 27.4 mmol/L (20.0-27.5); Globulin 2.6 g/dL (1.6-3.3); Non-African American GFR(CKD) 109.3 (60.0-200.0); Potassium 5.6 mmol/L (3.5-5.5); Total Bilirubin 0.6 mg/dL (0.30-1.20); Total Protein 6.2 g/dL (6.2-8.2)
[2021-08-10] MEDS ORDERED: SODIUM POLYSTYRENE SULFONATE 15 GM/60 ML BOTTLE PO STA (14:32)
--- NOTE | 2021-08-10 14:32 | P.PN ---
Subjective Progress Note Date: 08/10/21 50-year-old male came in with the complaints of diarrhea which started about 4-5 days ago. Patient denied any significant fever patient doesn't have any fever here. Patient is found to be hypoxic and patient is presently on 7 L of oxygen. Patient is also found to be hyponatremic from diarrhea. Patient is found to have positive COVID-19 PCR. Patient d-dimer is 0.5 to does have elevated inflammatory markers along with elevated liver enzymes. Patient was not vaccinated for Covid 19 08/04/2021 Patient is seen in follow up this morning maintained on 10L HF and pulmonary and ID following. Patient is receiving Remdesivir and also maintained on IV dexamethasone, lovenox, vitamin and zinc supplements and will continue. Weaning FI02 as tolerated. Encouraged increased activity as tolerated. Will order incentive spirometer and follow up chest xray in the am. Patient having some difficulty in sleeping and requesting a sleep aid. 08/05/2021 Patient is seen in follow up this morning and currently sitting up at the window in no acute distress. Pulmonary following and continued on Remdesivir along with dexamethasone, lovenox and vitamin and zinc supplements. Currently maintained on 8L HF and dyspneic with exertion although states no worsening. Patient eager to go home. Ddimer elevated at 2 and will increase lovenox to bid. Repeat labs ordered. 08/06/2021 Patient is seen and evaluated in follow up today and respiratory has worsened and now requiring 15L HF along with 15 L non-rebreather. Patient is continued on IV dexamathasone, lovenox bid, vitamin and zinc supplements and continued of Remdesivir with pulmonary and ID following. D-dimer also elevated and 9.91 compared to 2.37 yesterday. bilateral venous doppler and CTA ordered to evaluate for any DVT or PE. Encouraged increased activity as tolerated and continue with IS use. Chest xray today shows stable bilateral patchy infiltrates. Will increase lovenox to bid 08/07/2021 Patient sitting up in chair. Continues on 15L NRB and 15L High flow cannula with an oxygen saturation of 93 to 94%. Patient continues on IV decadron, lovenox BID, vitamins, zinc. Followed closely by pulmonary. No acute events overnight, patients main concern is ongoing shortness of breath. Temp 99.4, heart rate 79, blood pressure 148/81, respirations 24. Labs today: WBC 4.8, sodium 134, chloride 97, potassium 4.4. Glucose in the 130s. Prognosis remains guarded, continue with all other supportive care. 08/08/2021 Patient evaluated today sitting up in the chair. He continues on a 15L NRB and 15l HF cannula, oxygen saturation today is 93%. No acute events overnight. Blood pressure 124/84 he is febrile low-grade 99.9 axillary, heart rate 80. He reports increasing cough and sputum production. He is being followed closely by ID and pulmonary services. There are no labs today, repeat them tomorrow. Continues on vitamin C, vitamin D3, Decadron placed day, Lovenox twice a day, zinc. He completed a course of IV remdesivir. 08/09/2021 Patient is seen in follow up this morning and continues on 15L HF NC along with non-rebreather. Patient d-dimer continues to elevate and was 32.36 today. Patient continues on Lovenox 60mg twice daily and will continue. Patient has completed remdesivir and was started on Baricitinib although is refusing this at this time. Patient states his has been on many anti-rheumatic medications for RA and feels this drug is experimental and prefers not to take this. Pulmonary following closely. Patient is extremely anxious about wanting to see his and will discuss with management about the protocol. Repeat covid testing was negative. 08/10/2021 Patient is seen and evaluated this morning and continues on 15 L along with nonrebreather and maintaining oxygen saturations of 85%. Patient denies any worsening shortness of breath and continues to increase activity as tolerated. Pulmonary following closely and patient is being placed on Airvo with an oxygen flow rate of 60 and an FiO2 of 85% and will continue to wean as tolerated and monitor for improvements in aeration. Patient was started on Baricitinib and has refused and was discontinued. Patient did complete remdesivir and is maint ained on Lovenox along with dexamethasone and vitamin and zinc supplements and will continue. Patient also continues with Lovenox twice a day and d-dimer slightly improved at 26.03 today. Potassium elevated at 5.6 and will give a dose of Kayexalate and repeat labs. Labs: White blood count is 5.50, hemoglobin is 14.0, platelets are 163, d-dimer is 26.03, sodium is 135, potassium 5.6, creatinine 0.7, LDH is 670, CRP is 6.30 REVIEW OF SYSTEMS: CONSTITUTIONAL: No fever, no malaise, no fatigue. CARDIOVASCULAR: No chest pain, no palpitations PULMONARY: reports continued shortness of breath although no worse. GASTROINTESTINAL: no nausea or vomiting noted NEUROLOGICAL: No headaches, no weakness, no numbness. GENITOURINARY: Denies any burning, frequency, or urgency. Active Medications Acetaminophen (Acetaminophen Tab 325 Mg Tab) 650 mg PO Q4HR PRN PRN Reason: Fever>101 Last Admin: 08/04/21 09:06 Dose: 650 mg Documented by: Albuterol Sulfate (Albuterol Hfa Inhaler) 2 puff INHALATION RT-Q6H PRN PRN Reason: Shortness Of Breath Or Wheezing Last Admin: 08/10/21 11:18 Dose: 2 puff Documented by: Ascorbic Acid (Ascorbic Acid 500 Mg Tab) 1,000 mg PO DAILY [facility] Last Admin: 08/10/21 07:36 Dose: 1,000 mg Documented by: Cholecalciferol (Cholecalciferol 25 Mcg (1000 Iu) Tablet) 50 mcg PO DAILY [facility] Last Admin: 08/10/21 07:36 Dose: 50 mcg Documented by: Dexamethasone Sodium Phosphate (Dexamethasone Sod Phosphate 10 Mg/Ml 1 Ml Vial) 6 mg IVP BID [facility] Last Admin: 08/10/21 07:37 Dose: 6 mg Documented by: Enoxaparin Sodium (Enoxaparin 60 Mg/0.6 Ml Syringe) 60 mg SQ BID [facility] Last Admin: 08/10/21 07:37 Dose: 60 mg Documented by: Famotidine (Famotidine 20 Mg Tab) 40 mg PO DAILY [facility] Last Admin: 08/10/21 07:36 Dose: 40 mg Documented by: Multivitamins (Multivitamins, Thera 1 Each Tab) 1 each PO DAILY [facility] Last Admin: 08/10/21 07:37 Dose: 1 each Documented by: Naloxone HCl (Naloxone 0.4 Mg/Ml 1 Ml Vial) 0.2 mg IV Q2M PRN PRN Reason: Opioid Reversal Zinc Sulfate (Zinc Sulfate 220 Mg Cap) 220 mg PO DAILY [facility] Last Admin: 08/10/21 07:36 Dose: 220 mg Documented by: Zolpidem Tartrate (Zolpidem 10 Mg Tab) 10 mg PO HS PRN PRN Reason: Insomnia PHYSICAL EXAMINATION: GENERAL: The patient is alert and oriented x3, no acute respiratory distress. Well developed, well nourished. On 15L HF NC and non-rebreather and being transitioned to Airvo HEENT: Pupils are round and equally reacting to light. EOMI. No scleral icterus. No conjunctival pallor. Normocephalic, atraumatic. No pharyngeal erythema. No thyromegaly. CARDIOVASCULAR: S1 and S2 present. No murmurs, rubs, or gallops. PULMONARY: Chest is clear to auscultation, with some coarse rhonchi and crackles noted at the bases worse on the right than the left. ABDOMEN: Soft, nontender, nondistended, normoactive bowel sounds. No palpable organomegaly. MUSCULOSKELETAL: No joint swelling or deformity. EXTREMITIES: No cyanosis, clubbing, or pedal edema. NEUROLOGICAL: Gross neurological examination did not reveal any focal deficits. SKIN: No rashes. Assessment: -COVID-19 pneumonia with acute hypoxic respiratory failure secondary to COVID- 19 pneumonia -elevated d-dimer without evidence of PE or DVT as noted on imaging -Diarrhea secondary to COVID-19 infection, improving -Hyponatremia hypovolemic hyponatremia secondary to diarrhea, improved -Hyperkalemia at 5.6 and will give a dose of Kayexalate and repeat labs -Elevated liver enzymes secondary to systemic inflammatory response from COVID- 19, trending down -DVT prophylaxis: Lovenox BID -Full code Plan: Continue with current medications. Wean FI02 as tolerated. Respiratory status guarded and maintained on 15L HF and 15L non-rebreather and barely managing to hold oxygen saturations in the 80s and is being transitioned to Airvo. Patient denies any feelings of worsening shortness of breath. Continue lovenox 60 BID along with IV dexamethasone and covid supplements and monitor closely. Pulmonary following and ID. Encourage IS and activity as tolerated. Repeat am labs along with inflammatory markers. Remdesivir has been completed. Baricitinib continued as patient refused. Will continue to monitor closely. Prognosis guarded. Objective - Vital Signs Vital signs: Vital Signs Temp 97.5 F L 08/10/21 05:12 Pulse 63 08/10/21 05:12 Resp 21 08/10/21 05:12 BP 112/67 08/10/21 05:12 Pulse Ox 95 08/10/21 05:12 Intake & Output 08/09/21 08/10/21 08/10/21 18:59 06:59 18:59 Intake Total 1959 Balance 1959 Weight 108.862 kg Intake: Oral 1959 Other: # Voids 7 2 # Bowel Movements 1 - Labs CBC & Chem 7: 08/10/21 06:26 08/10/21 06:26 Labs: Abnormal Lab Results - Last 24 Hours (Table) 08/09/21 08/10/21 Range/Units 06:04 06:26 D-Dimer 26.03 H (<0.60) mg/L FEU Glucose 132 H (70-110) mg/dL Lactate Dehydrogenase 639 H (120-246) U/L C-Reactive Protein 7.90 H (0.00-0.80) mg/dL Microbiology - Last 24 Hours (Table) 08/03/21 10:00 Blood Culture - Final Blood No Growth after 144 hours 08/03/21 10:15 Blood Culture - Final Blood No Growth after 144 hours
[2021-08-10] MEDS: BARICITINIB 2 MG TABLET PO SCH (17:20)
--- NOTE | 2021-08-11 02:15 | PN ---
PROGRESS NOTE DATE OF SERVICE: 08/10/2021 REASON FOR FOLLOWUP: COVID-19 pneumonia. INTERVAL HISTORY: The patient is afebrile. The patient is breathing comfortably; however, still requiring high-flow oxygen. The patient denies having any chest pain or worsening cough or sputum production. No abdominal pain or diarrhea. PHYSICAL EXAMINATION: Blood pressure 132/87, pulse of 63, temperature 98.5. He is 93% on AIRVO. General description is a middle-aged male lying in bed in no distress. Respiratory system: Unlabored breathing, coarse breath sounds bilaterally. No wheeze. Heart S1, S2. Regular rate and rhythm. Abdomen soft, no tenderness. LABS: Hemoglobin is 14, white count 5.50. Creatinine 0.7. DIAGNOSTIC IMPRESSION AND PLAN: Patient with acute COVID-19 pneumonia in this patient who did have some clinical improvement. Patient to continue with baricitinib, Decadron, Lovenox, zinc and ascorbic acid along with respiratory support. Monitor his clinical course closely. MMODL / IJN: [id number] /
[2021-08-11 07:20] LABS: Basophils % (A) 0 %; Eosinophils % (A) 0 %; HGB 14.8 gm/dL (13.0-17.5); Lymphocytes # (A) 0.3 k/uL (1.0-4.8); Lymphocytes % (A) 5 %; MCH 32.9 pg (25.0-35.0); MCHC 34.3 g/dL (31.0-37.0); Mean Platelet Volume 7.9; Monocytes # (A) 0.2 k/uL (0-1.0); Monocytes % (A) 4 %; Neutrophils # (A) 6.2 k/uL (1.3-7.7); Neutrophils % (A) 91 %; Platelet Count 163 k/uL (150-450); RBC 4.48 m/uL (4.30-5.90); RDW 11.8 % (11.5-15.5); WBC 6.8 k/uL (3.8-10.6)
[2021-08-11 07:28] LABS: ALT 52 U/L (4-49); AST 54 U/L (17-59); African American GFR (CKD) >90 (>60 ml/min/1.73 sqM); Albumin 3.3 g/dL (3.5-5.0); Alkaline Phosphatase 57 U/L (38-126); Anion Gap 6 mmol/L; Blood Urea Nitrogen 19 mg/dL (9-20); Calcium 8.9 mg/dL (8.4-10.2); Carbon Dioxide 32 mmol/L (22-30); Chloride 94 mmol/L (98-107); Globulin 3.2 g/dL; Glucose 104 mg/dL (74-99); Non-African American GFR(CKD) >90 (>60 ml/min/1.73 sqM); Sodium 132 mmol/L (137-145); Total Bilirubin 0.9 mg/dL (0.2-1.3); Total Protein 6.5 g/dL (6.3-8.2)
[2021-08-11] MEDS: ALBUTEROL HFA INHALER INHALATION PRN ×3 (08:09→16:41)
[2021-08-11] MEDS: MULTIVITAMINS, THERA 1 EACH TAB PO SCH (10:27)
[2021-08-11] MEDS: DEXAMETHASONE SOD PHOSPHATE 10 MG/ML 1 ML VIAL IVP SCH ×2 (10:27→20:16)
[2021-08-11] MEDS: ASCORBIC ACID 500 MG TAB PO SCH (10:28)
[2021-08-11] MEDS: CHOLECALCIFEROL 25 MCG (1000 IU) TABLET PO SCH (10:28)
[2021-08-11] MEDS: FAMOTIDINE 20 MG TAB PO SCH (10:28)
[2021-08-11] MEDS: ZINC SULFATE 220 MG CAP PO SCH (10:28)
[2021-08-11] MEDS: ENOXAPARIN 60 MG/0.6 ML SYRINGE SQ SCH ×2 (10:29→20:16)
--- NOTE | 2021-08-11 12:44 | P.PN ---
Subjective Progress Note Date: 08/11/21 Pleasant 50-year-old male patient with known history of hypertension otherwise negative medical history, started getting sick approximately 5 days ago. Around , the patient started having GI symptoms of diarrhea and he was unable to keep anything him. The patient became progressively more weak and lethargic and in the same time he started developing shortness of breath. He went to an outpatient clinic with the patient was found to be hypoxic and he was directed to us for further care. The patient immediately checked positive for COVID 19. He is not vaccinated. His white cell count is at 2.2 with a hemoglobin of 14.3 with a platelet count of 131. His sodium was at 126 consistent with his underlying diarrhea. He had a component of non-anion gap metabolic acidosis secondary to diarrhea and his serum bicarb was at 19. LDH level was 1651 and he did have some mild transaminitis. Troponins are negative. Pro-calcitonin level was 0.1 and a CRP level is at 8.3. The patient was s tarted on Decadron. The patient was also started on IV fluids. He is also on Decadron for DVT prophylaxis. Currently is on 7 L of oxygen by nasal cannula. Note that he started off with 4 L and his oxygen requirements progressed and currently is on 7 L. No altered mentation. On 08/04/2021 patient seen in follow-up on medical surgical floor, he is awake and alert, in no acute distress, he is currently at 10 L of oxygen and this is an increase in his FiO2 since yesterday however clinical patient states she feels better, breathing easier, his sat on 10 L and 93%. He's been ambulating somewhat to the bathroom, tolerates activity well. No fever or chills, no chest discomfort, occasional cough, no phlegm production. He was started on Remdesivir, today's day 2 of treatment, he continues on Decadron 6 mg twice a day, and prophylactic Lovenox in addition to multivitamins. He is on point of the same at a rate of 100 mL per hour, his oral intake is good. Today's labs have been reviewed, his white count is 5.5, hemoglobin is 13.5, platelets are 145, improving, d-dimer is normal at 0.45, electrolytes and renal profile are unremarkable, his inflammatory markers are improving, his LDH is down to 495 from 1240 and yesterday's labs, and CRP is down to 8.0, his pro-calcitonin level was negative at 0.13 On 08/05/2021 patient seen in follow-up on medical surgical floor, clinically patient looks good, looks to be in no acute distress, awake and alert, oriented 3, sitting up in a recliner, although she does still require high flow oxygen currently at 8 L and pulse ox is 91%, denies any worsening dyspnea, he does have occasional dry nonproductive cough, afebrile, blood pressure has been stable. His diarrhea has resolved, his labs today have been reviewed, his serum sodium level is improving on today's labs, and is now within normal limits at 137, dressing electrolytes and renal profile were unremarkable. His LDH has increased on today's labs at the 1275, and CRP is 5.6, improved, his potassium level was -0.13 a few days ago, his white count is 5.56 on yesterday's labs, and hemoglobin is 13.5. he continues on Decadron 6 mg IV push twice daily, Remdesivir, he is on prophylactic dose Lovenox 40 daily. No nausea or vomiting, tolerating oral intake. On 08/09/2031 patient seen in follow-up on medical surgical floor, he is resting comfortably in bed, appears to be in no acute distress, he is on 15 L high flow oxygen with pulse ox of 91-92%. Although requiring high flow oxygen he does not appear to be in any acute distress, today's chest x-ray showing low lung volumes and bilateral multifocal and confluent mid to lower lung opacities consistent with his history of COVID-19 infection, no significant change compared to most recent chest x-ray. He continues on baricitinib which was started yesterday on 08/08/2021, and Decadron 6 mg twice daily, prophylactic Lovenox at 60 mg twice daily. Patient had a recent CT angiogram of the chest on 08/06/2021 that showed no evidence of pulmonary embolism and no evidence of DVT on lower extremity Dopplers, however his d-dimer continues to trend up and is up to 32.3 on today's labs, his white count is 4.8, hemoglobin is 13.7, lymphocyte count remains low at 0.20, electrolytes and renal profile are unremarkable, his inflammatory markers relatively stable compared to yesterday's labs at 639, but overall improved since admission, CRP is 7.9, slightly improved from yesterday. He was retested for COVID-19 and was found to be negative. On 08/10/2021 patient seen in follow-up on medical surgical floor, she remains on 15 L per high flow nasal cannula in addition to 100% nonrebreather mask, he is fairly asymptomatic, however his pulse ox is only 84%. He does have persistent mild cough, no phlegm production, no complaints of chest discomfort, she has been get not to the bedside commode, tolerates activity fairly well. He is awake and alert, oriented 3, no signs of any altered mentation, his chest x- ray from yesterday showed low lung volumes with bilateral multifocal and confluent mid to lower lung opacities, stable, consistent with his history of COVID-19 infection. he has been refusing Baricitinib, stating that it is experimental treatment. He is still excepting Decadron, and his Lovenox is 60 mg twice daily which was increased yesterday, he continues on COVID-19 vitamins, no nausea vomiting or diarrhea, he is tolerating oral intake. Today's labs have been reviewed showing white blood cell count of 5.5, hemoglobin is 14.0, platelet count is 163, his lymphocyte count slightly improved and is up to 0.32, his d-dimer is still significantly elevated but improved from yesterday's value and is down to 26.03, his LDH, CRP and BMP levels are still pending, he was retested for COVID-19 yesterday and was found to be negative. On 08/11/2021 patient seen in follow-up on medical surgical floor, he remains on Airvo at 60 L and FiO2 of 85%, he is breathing comfortably, his pulse ox on those settings is around 88-89%, patient states overall he feels good, he sitting up in the recliner, he is watching TV, his been able to use the bedside commode, no coughing, no chest discomfort. He agreed to start the Baricitinib last night, he received his first 2 doses last night and this morning. He continues on Decadron 6 mg twice daily, Lovenox 60 mg twice daily. Today's labs have been reviewed showing CBC that is unremarkable, his lymphocyte count is 0.3, relatively stable, d-dimer is improving and is down to 15.9, serum sodium is 132, potassium is 5.0, chloride is 94, CO2 is 32, BUN was 19, creatinine 0.80. AST is 54, ALT is 52, alk phos is 57. Patient was retested with COVID-19 PCR test and was found to be negative, he can be removed from isolation and he can have visitors at this time. His last chest x-ray yesterday showing low lung volumes with bilateral multifocal and confluent mid to lower lung opacities greatest in the periphery consistent with COVID-19 infection. Clinically he has remained stable, without worsening dyspnea. Objective - Vital Signs Vital signs: Vital Signs Temp 98.1 F 08/11/21 10:21 Pulse 85 08/11/21 10:21 Resp 18 08/11/21 10:21 BP 116/80 08/11/21 10:21 Pulse Ox 89 L 08/11/21 10:59 Intake & Output 08/10/21 08/11/21 08/11/21 18:59 06:59 18:59 Intake Total 3600 Balance 3600 Intake: Oral 3600 Other: # Voids 2 # Bowel Movements 1 - Exam GENERAL EXAM: Alert, very pleasant, 50-year-old white male, on Airvo at 60 L and FiO2 of 85% with a pulse ox of 85-89%, comfortable in no apparent distress. HEAD: Normocephalic/atraumatic. EYES: Normal reaction of pupils, equal size. Conjunctiva pink, sclera white. NOSE: Clear with pink turbinates. THROAT: No erythema or exudates. NECK: No masses, no JVD, no thyroid enlargement, no adenopathy. CHEST: No chest wall deformity. Symmetrical expansion. LUNGS: Equal air entry with bibasilar crackles CVS: Regular rate and rhythm, normal S1 and S2, no gallops, no murmurs, no rubs ABDOMEN: Soft, nontender. No hepatosplenomegaly, normal bowel sounds, no guarding or rigidity. EXTREMITIES: No clubbing, no edema, no cyanosis, 2+ pulses and upper and lower extremities. MUSCULOSKELETAL: Muscle strength and tone normal. SPINE: No scoliosis or deformity SKIN: No rashes CENTRAL NERVOUS SYSTEM: Alert and oriented -3. No focal deficits, tone is norm al in all 4 extremities. PSYCHIATRIC: Alert and oriented -3. Appropriate affect. Intact judgment and insight. - Labs CBC & Chem 7: 08/11/21 06:55 08/11/21 06:55 Labs: Abnormal Lab Results - Last 24 Hours (Table) 08/11/21 08/11/21 08/11/21 Range/Units 06:55 06:55 06:55 Lymphocytes # 0.3 L (1.0-4.8) k/uL D-Dimer 15.97 H (<0.60) mg/L FEU Sodium 132 L (137-145) mmol/L Chloride 94 L (98-107) mmol/L Carbon Dioxide 32 H (22-30) mmol/L Glucose 104 H (74-99) mg/dL ALT 52 H (4-49) U/L Albumin 3.3 L (3.5-5.0) g/dL Assessment and Plan Plan: #1. acute COVID 19 related pneumonia. The patient has bilateral pulmonary infi ltrates and the patient has crackles in the mid and lower lung is bilaterally and the patient is currently on 7 L of oxygen by nasal cannula. Symptoms started less than a week ago and the patient progressed rather rapidly. The patient's initial symptoms were mainly GI related as the patient presented with diarrhea and it seems that the diarrhea is subsiding at this point in time. patient was started on the Remdesivir on 08/03/2021. Patient's hypoxemia has progressed, patient is currently on 15 L high flow nasal cannula and nonrebreather, and was started on Baricitinib however he is refusing it stating it is an experimental treatment. Patient agreed to start Baricitinib on 08/10/2021 #2. acute hypoxic respiratory failure, worsened, and patient is currently on Airvo at 60 L and FiO2 of 85% #3. acute diarrhea, related to COVID 19, resolved #4. Anion gap metabolic acidosis secondary to diarrhea, improved, diarrhea has resolved #5. acute hypovolemic hyponatremia secondary to diarrhea, resolved #6. leukopenia and thrombocytopenia, likely related to COVID 19 infection, resolved #7. hypertension Plan: Remains on Airvo at 60 L and FiO2 of 85%, maintaining O2 saturations between 88- 89 and 91%, Clinically he remains very comfortable, denies worsening dyspnea he agreed to start Baricitinib, Continue Decadron 6 mg twice daily, Lovenox at 60 mg twice daily, Today's labs have been noted, d-dimer continues to improve but remains elevated and we will continue current dose Lovenox at intermediate dosing 60 mg twice daily we'll continue to follow the number values on a daily basis, CTA chest was negative for PE, no evidence of DVT on bilateral lower extremity Dopplers We'll continue to follow his inflammatory markers and d-dimer Prognosis is guarded I performed a history & physical examination of the patient and discussed their management with my nurse practitioner, Elsa Godinez. I reviewed the nurse practitioner's note and agree with the documented findings and plan of care. Lung sounds are positive for basilar rales throughout the lung meyer. The findings and the impression was discussed with the patient. I attest to the documentation by the nurse practitioner. Time with Patient: Less than 30
--- NOTE | 2021-08-11 15:15 | P.PN ---
Subjective Progress Note Date: 08/11/21 50-year-old male came in with the complaints of diarrhea which started about 4-5 days ago. Patient denied any significant fever patient doesn't have any fever here. Patient is found to be hypoxic and patient is presently on 7 L of oxygen. Patient is also found to be hyponatremic from diarrhea. Patient is found to have positive COVID-19 PCR. Patient d-dimer is 0.5 to does have elevated inflammatory markers along with elevated liver enzymes. Patient was not vaccinated for Covid 19 08/04/2021 Patient is seen in follow up this morning maintained on 10L HF and pulmonary and ID following. Patient is receiving Remdesivir and also maintained on IV dexamethasone, lovenox, vitamin and zinc supplements and will continue. Weaning FI02 as tolerated. Encouraged increased activity as tolerated. Will order incentive spirometer and follow up chest xray in the am. Patient having some difficulty in sleeping and requesting a sleep aid. 08/05/2021 Patient is seen in follow up this morning and currently sitting up at the window in no acute distress. Pulmonary following and continued on Remdesivir along with dexamethasone, lovenox and vitamin and zinc supplements. Currently maintained on 8L HF and dyspneic with exertion although states no worsening. Patient eager to go home. Ddimer elevated at 2 and will increase lovenox to bid. Repeat labs ordered. 08/06/2021 Patient is seen and evaluated in follow up today and respiratory has worsened and now requiring 15L HF along with 15 L non-rebreather. Patient is continued on IV dexamathasone, lovenox bid, vitamin and zinc supplements and continued of Remdesivir with pulmonary and ID following. D-dimer also elevated and 9.91 compared to 2.37 yesterday. bilateral venous doppler and CTA ordered to evaluate for any DVT or PE. Encouraged increased activity as tolerated and continue with IS use. Chest xray today shows stable bilateral patchy infiltrates. Will increase lovenox to bid 08/07/2021 Patient sitting up in chair. Continues on 15L NRB and 15L High flow cannula with an oxygen saturation of 93 to 94%. Patient continues on IV decadron, lovenox BID, vitamins, zinc. Followed closely by pulmonary. No acute events overnight, patients main concern is ongoing shortness of breath. Temp 99.4, heart rate 79, blood pressure 148/81, respirations 24. Labs today: WBC 4.8, sodium 134, chloride 97, potassium 4.4. Glucose in the 130s. Prognosis remains guarded, continue with all other supportive care. 08/08/2021 Patient evaluated today sitting up in the chair. He continues on a 15L NRB and 15l HF cannula, oxygen saturation today is 93%. No acute events overnight. Blood pressure 124/84 he is febrile low-grade 99.9 axillary, heart rate 80. He reports increasing cough and sputum production. He is being followed closely by ID and pulmonary services. There are no labs today, repeat them tomorrow. Continues on vitamin C, vitamin D3, Decadron placed day, Lovenox twice a day, zinc. He completed a course of IV remdesivir. 08/09/2021 Patient is seen in follow up this morning and continues on 15L HF NC along with non-rebreather. Patient d-dimer continues to elevate and was 32.36 today. Patient continues on Lovenox 60mg twice daily and will continue. Patient has completed remdesivir and was started on Baricitinib although is refusing this at this time. Patient states his has been on many anti-rheumatic medications for RA and feels this drug is experimental and prefers not to take this. Pulmonary following closely. Patient is extremely anxious about wanting to see his and will discuss with management about the protocol. Repeat covid testing was negative. 08/10/2021 Patient is seen and evaluated this morning and continues on 15 L along with nonrebreather and maintaining oxygen saturations of 85%. Patient denies any worsening shortness of breath and continues to increase activity as tolerated. Pulmonary following closely and patient is being placed on Airvo with an oxygen flow rate of 60 and an FiO2 of 85% and will continue to wean as tolerated and monitor for improvements in aeration. Patient was started on Baricitinib and has refused and was discontinued. Patient did complete remdesivir and is maint ained on Lovenox along with dexamethasone and vitamin and zinc supplements and will continue. Patient also continues with Lovenox twice a day and d-dimer slightly improved at 26.03 today. Potassium elevated at 5.6 and will give a dose of Kayexalate and repeat labs. 08/11/2021 She is seen and evaluated this morning and follow-up clinically looks well although respiratory status patient remains on Airvo and has titrated slightly down to a flow rate of 60 and FiO2 of 85 and maintaining 87-94% on these settings. Encouraged increased activity as tolerated along with continued incentive spirometer use. Pulmonary and infectious disease following and patient has been started on Baricitinib and is now agreeable to take and took his dose yesterday night and will continue with Lovenox twice daily along with vitamin and zinc supplements and patient is maintained on IV dexamethasone. Labs: White blood count is 6.8, hemoglobin is 14.8, platelets are 163, d-dimer is 15.97, sodium is 132, potassium 5.0, creatinine 0.8 REVIEW OF SYSTEMS: CONSTITUTIONAL: No fever, no malaise, no fatigue. CARDIOVASCULAR: No chest pain, no palpitations PULMONARY: reports continued shortness of breath although no worse. GASTROINTESTINAL: no nausea or vomiting noted NEUROLOGICAL: No headaches, no weakness, no numbness. GENITOURINARY: Denies any burning, frequency, or urgency. Active Medications Acetaminophen (Acetaminophen Tab 325 Mg Tab) 650 mg PO Q4HR PRN PRN Reason: Fever>101 Last Admin: 08/04/21 09:06 Dose: 650 mg Documented by: Albuterol Sulfate (Albuterol Hfa Inhaler) 2 puff INHALATION RT-Q6H PRN PRN Reason: Shortness Of Breath Or Wheezing Last Admin: 08/11/21 11:50 Dose: 2 puff Documented by: Ascorbic Acid (Ascorbic Acid 500 Mg Tab) 1,000 mg PO DAILY [facility] Last Admin: 08/11/21 10:28 Dose: 1,000 mg Documented by: Baricitinib (Baricitinib 2 Mg Tablet) 4 mg PO DAILY@1800 [facility] Stop: 08/23/21 18:01 Last Admin: 08/10/21 17:20 Dose: 4 mg Documented by: Cholecalciferol (Cholecalciferol 25 Mcg (1000 Iu) Tablet) 50 mcg PO DAILY [facility] Last Admin: 08/11/21 10:28 Dose: 50 mcg Documented by: Dexamethasone Sodium Phosphate (Dexamethasone Sod Phosphate 10 Mg/Ml 1 Ml Vial) 6 mg IVP BID [facility] Last Admin: 08/11/21 10:27 Dose: 6 mg Documented by: Enoxaparin Sodium (Enoxaparin 60 Mg/0.6 Ml Syringe) 60 mg SQ BID [facility] Last Admin: 08/11/21 10:29 Dose: 60 mg Documented by: Famotidine (Famotidine 20 Mg Tab) 40 mg PO DAILY [facility] Last Admin: 08/11/21 10:28 Dose: 40 mg Documented by: Multivitamins (Multivitamins, Thera 1 Each Tab) 1 each PO DAILY [facility] Last Admin: 08/11/21 10:27 Dose: 1 each Documented by: Naloxone HCl (Naloxone 0.4 Mg/Ml 1 Ml Vial) 0.2 mg IV Q2M PRN PRN Reason: Opioid Reversal Zinc Sulfate (Zinc Sulfate 220 Mg Cap) 220 mg PO DAILY [facility] Last Admin: 08/11/21 10:28 Dose: 220 mg Documented by: Zolpidem Tartrate (Zolpidem 10 Mg Tab) 10 mg PO HS PRN PRN Reason: Insomnia PHYSICAL EXAMINATION: GENERAL: The patient is alert and oriented x3, no acute respiratory distress. Well developed, well nourished. On Airvo HEENT: Pupils are round and equally reacting to light. EOMI. No scleral icterus. No conjunctival pallor. Normocephalic, atraumatic. No pharyngeal erythema. No thyromegaly. CARDIOVASCULAR: S1 and S2 present. No murmurs, rubs, or gallops. PULMONARY: Chest is clear to auscultation, with some coarse rhonchi and crackles noted at the bases worse on the right than the left. ABDOMEN: Soft, nontender, nondistended, normoactive bowel sounds. No palpable organomegaly. MUSCULOSKELETAL: No joint swelling or deformity. EXTREMITIES: No cyanosis, clubbing, or pedal edema. NEUROLOGICAL: Gross neurological examination did not reveal any focal deficits. SKIN: No rashes. Assessment: -COVID-19 pneumonia with acute hypoxic respiratory failure secondary to COVID- 19 pneumonia -elevated d-dimer without evidence of PE or DVT as noted on imaging -Diarrhea secondary to COVID-19 infection, improving -Hyponatremia hypovolemic hyponatremia secondary to diarrhea, improved -Hyperkalemia at 5.6 and will give a dose of Kayexalate and repeat labs, repeat potassium today is 5.0 and will continue low potassium diet and monitor closely -Elevated liver enzymes secondary to systemic inflammatory response from COVID- 19, trending down -DVT prophylaxis: Lovenox BID -Full code Plan: Continue with current medications. Wean FI02 as tolerated. Respiratory status guarded and maintained on Airvo. Patient denies any feelings of worsening shortness of breath. Continue lovenox 60 BID along with IV dexamethasone and covid supplements and monitor closely. Pulmonary following and ID. Encourage IS and activity as tolerated. Repeat am labs along with inflammatory markers. Will repeat chest x-ray in the morning. Remdesivir has been completed. Baricitinib has been initiated as patient is now agreeable to take. Will continue to monitor closely. Prognosis guarded. Objective - Vital Signs Vital signs: Vital Signs Temp 98.1 F 08/11/21 10:21 Pulse 85 08/11/21 10:21 Resp 18 08/11/21 10:21 BP 116/80 08/11/21 10:21 Pulse Ox 87 L 08/11/21 10:21 Intake & Output 08/10/21 08/11/21 08/11/21 18:59 06:59 18:59 Intake Total 3600 Balance 3600 Intake: Oral 3600 Other: # Voids 2 # Bowel Movements 1 - Labs CBC & Chem 7: 08/11/21 06:55 08/11/21 06:55 Labs: Abnormal Lab Results - Last 24 Hours (Table) 08/10/21 08/11/21 08/11/21 Range/Units 06:26 06:55 06:55 Lymphocytes # 0.3 L (1.0-4.8) k/uL D-Dimer 15.97 H (<0.60) mg/L FEU Sodium (137-145) mmol/L Potassium 5.6 H (3.5-5.5) mmol/L Chloride 93 L (96-109) mmol/L Carbon Dioxide (22-30) mmol/L BUN/Creatinine Ratio 21.86 H (12.00-20.00) Ratio Glucose (74-99) mg/dL AST 52 H (14-35) U/L ALT 58 H (10-49) U/L Lactate Dehydrogenase 670 H (120-246) U/L C-Reactive Protein 6.30 H (0.00-0.80) mg/dL Albumin 3.6 L (3.8-4.9) g/dL Albumin/Globulin Ratio 1.38 L (1.60-3.17) g/dL 08/11/21 Range/Units 06:55 Lymphocytes # (1.0-4.8) k/uL D-Dimer (<0.60) mg/L FEU Sodium 132 L (137-145) mmol/L Potassium (3.5-5.5) mmol/L Chloride 94 L (96-109) mmol/L Carbon Dioxide 32 H (22-30) mmol/L BUN/Creatinine Ratio (12.00-20.00) Ratio Glucose 104 H (74-99) mg/dL AST (14-35) U/L ALT 52 H (10-49) U/L Lactate Dehydrogenase (120-246) U/L C-Reactive Protein (0.00-0.80) mg/dL Albumin 3.3 L (3.8-4.9) g/dL Albumin/Globulin Ratio (1.60-3.17) g/dL
[2021-08-11] MEDS: BARICITINIB 2 MG TABLET PO SCH (16:21)
--- NOTE | 2021-08-11 22:31 | PN ---
PROGRESS NOTE DATE OF SERVICE: 08/11/2021 REASON FOR FOLLOWUP: COVID-19 pneumonia. INTERVAL HISTORY: The patient is afebrile. The patient is breathing slightly comfortably. The patient denies having any chest pain. Still requiring high-flow oxygen through AIRVO. No worsening cough or sputum production. No abdominal pain or diarrhea. PHYSICAL EXAMINATION: Blood pressure 129/84, pulse of 79, temperature 97.9. He is 90% on 80% FiO2. General description is a middle-aged male up in the chair in no distress. Respiratory system: Unlabored breathing. Coarse breath sounds bilaterally. No wheeze. Heart S1, S2. Regular rate and rhythm. Abdomen soft, no tenderness. LABS: Hemoglobin 14, white count 6.8. D-dimer is 15.97, creatinine 0.90. DIAGNOSTIC IMPRESSION AND PLAN: Patient with acute COVID-19 pneumonia with severe illness. The patient is currently on baricitinib, dexamethasone, Lovenox, zinc and ascorbic acid; to continue along with respiratory support. Monitor his clinical course closely. MMODL / IJN: [id number] /
[2021-08-12 07:30] LABS: Basophils % (A) 0 %; Eosinophils % (A) 0 %; HCT 47.1 % (39.0-53.0); HGB 15.5 gm/dL (13.0-17.5); Lymphocytes # (A) 0.5 k/uL (1.0-4.8); Lymphocytes % (A) 6 %; MCH 32.3 pg (25.0-35.0); MCHC 32.9 g/dL (31.0-37.0); MCV 98.2 fL (80.0-100.0); Mean Platelet Volume 7.6; Monocytes # (A) 0.2 k/uL (0-1.0); Monocytes % (A) 3 %; Neutrophils % (A) 91 %; Platelet Count 177 k/uL (150-450); RDW 12.6 % (11.5-15.5); WBC 7.8 k/uL (3.8-10.6)
[2021-08-12 07:55] LABS: ALT 63 U/L (4-49); AST 53 U/L (17-59); African American GFR (CKD) >90 (>60 ml/min/1.73 sqM); Albumin 3.6 g/dL (3.5-5.0); Albumin/Globulin Ratio 1.1; Alkaline Phosphatase 58 U/L (38-126); Anion Gap 9 mmol/L; Blood Urea Nitrogen 18 mg/dL (9-20); Carbon Dioxide 31 mmol/L (22-30); Chloride 96 mmol/L (98-107); Globulin 3.4 g/dL; Glucose 104 mg/dL (74-99); Non-African American GFR(CKD) >90 (>60 ml/min/1.73 sqM); Sodium 136 mmol/L (137-145); Total Bilirubin 0.9 mg/dL (0.2-1.3)
[2021-08-12] MEDS: MULTIVITAMINS, THERA 1 EACH TAB PO SCH (09:16)
[2021-08-12] MEDS: CHOLECALCIFEROL 25 MCG (1000 IU) TABLET PO SCH (09:16)
[2021-08-12] MEDS: ZINC SULFATE 220 MG CAP PO SCH (09:16)
[2021-08-12] MEDS: DEXAMETHASONE SOD PHOSPHATE 10 MG/ML 1 ML VIAL IVP SCH ×2 (09:16→19:54)
[2021-08-12] MEDS: ENOXAPARIN 60 MG/0.6 ML SYRINGE SQ SCH ×2 (09:17→19:54)
[2021-08-12] MEDS: FAMOTIDINE 20 MG TAB PO SCH (09:17)
[2021-08-12] MEDS: ASCORBIC ACID 500 MG TAB PO SCH (09:17)
--- NOTE | 2021-08-12 13:34 | P.PN ---
Subjective Progress Note Date: 08/12/21 Pleasant 50-year-old male patient with known history of hypertension otherwise negative medical history, started getting sick approximately 5 days ago. Around , the patient started having GI symptoms of diarrhea and he was unable to keep anything him. The patient became progressively more weak and lethargic and in the same time he started developing shortness of breath. He went to an outpatient clinic with the patient was found to be hypoxic and he was directed to us for further care. The patient immediately checked positive for COVID 19. He is not vaccinated. His white cell count is at 2.2 with a hemoglobin of 14.3 with a platelet count of 131. His sodium was at 126 consistent with his underlying diarrhea. He had a component of non-anion gap metabolic acidosis secondary to diarrhea and his serum bicarb was at 19. LDH level was 1651 and he did have some mild transaminitis. Troponins are negative. Pro-calcitonin level was 0.1 and a CRP level is at 8.3. The patient was s tarted on Decadron. The patient was also started on IV fluids. He is also on Decadron for DVT prophylaxis. Currently is on 7 L of oxygen by nasal cannula. Note that he started off with 4 L and his oxygen requirements progressed and currently is on 7 L. No altered mentation. On 08/04/2021 patient seen in follow-up on medical surgical floor, he is awake and alert, in no acute distress, he is currently at 10 L of oxygen and this is an increase in his FiO2 since yesterday however clinical patient states she feels better, breathing easier, his sat on 10 L and 93%. He's been ambulating somewhat to the bathroom, tolerates activity well. No fever or chills, no chest discomfort, occasional cough, no phlegm production. He was started on Remdesivir, today's day 2 of treatment, he continues on Decadron 6 mg twice a day, and prophylactic Lovenox in addition to multivitamins. He is on point of the same at a rate of 100 mL per hour, his oral intake is good. Today's labs have been reviewed, his white count is 5.5, hemoglobin is 13.5, platelets are 145, improving, d-dimer is normal at 0.45, electrolytes and renal profile are unremarkable, his inflammatory markers are improving, his LDH is down to 495 from 1240 and yesterday's labs, and CRP is down to 8.0, his pro-calcitonin level was negative at 0.13 On 08/05/2021 patient seen in follow-up on medical surgical floor, clinically patient looks good, looks to be in no acute distress, awake and alert, oriented 3, sitting up in a recliner, although she does still require high flow oxygen currently at 8 L and pulse ox is 91%, denies any worsening dyspnea, he does have occasional dry nonproductive cough, afebrile, blood pressure has been stable. His diarrhea has resolved, his labs today have been reviewed, his serum sodium level is improving on today's labs, and is now within normal limits at 137, dressing electrolytes and renal profile were unremarkable. His LDH has increased on today's labs at the 1275, and CRP is 5.6, improved, his potassium level was -0.13 a few days ago, his white count is 5.56 on yesterday's labs, and hemoglobin is 13.5. he continues on Decadron 6 mg IV push twice daily, Remdesivir, he is on prophylactic dose Lovenox 40 daily. No nausea or vomiting, tolerating oral intake. On 08/09/2031 patient seen in follow-up on medical surgical floor, he is resting comfortably in bed, appears to be in no acute distress, he is on 15 L high flow oxygen with pulse ox of 91-92%. Although requiring high flow oxygen he does not appear to be in any acute distress, today's chest x-ray showing low lung volumes and bilateral multifocal and confluent mid to lower lung opacities consistent with his history of COVID-19 infection, no significant change compared to most recent chest x-ray. He continues on baricitinib which was started yesterday on 08/08/2021, and Decadron 6 mg twice daily, prophylactic Lovenox at 60 mg twice daily. Patient had a recent CT angiogram of the chest on 08/06/2021 that showed no evidence of pulmonary embolism and no evidence of DVT on lower extremity Dopplers, however his d-dimer continues to trend up and is up to 32.3 on today's labs, his white count is 4.8, hemoglobin is 13.7, lymphocyte count remains low at 0.20, electrolytes and renal profile are unremarkable, his inflammatory markers relatively stable compared to yesterday's labs at 639, but overall improved since admission, CRP is 7.9, slightly improved from yesterday. He was retested for COVID-19 and was found to be negative. On 08/10/2021 patient seen in follow-up on medical surgical floor, she remains on 15 L per high flow nasal cannula in addition to 100% nonrebreather mask, he is fairly asymptomatic, however his pulse ox is only 84%. He does have persistent mild cough, no phlegm production, no complaints of chest discomfort, she has been get not to the bedside commode, tolerates activity fairly well. He is awake and alert, oriented 3, no signs of any altered mentation, his chest x- ray from yesterday showed low lung volumes with bilateral multifocal and confluent mid to lower lung opacities, stable, consistent with his history of COVID-19 infection. he has been refusing Baricitinib, stating that it is experimental treatment. He is still excepting Decadron, and his Lovenox is 60 mg twice daily which was increased yesterday, he continues on COVID-19 vitamins, no nausea vomiting or diarrhea, he is tolerating oral intake. Today's labs have been reviewed showing white blood cell count of 5.5, hemoglobin is 14.0, platelet count is 163, his lymphocyte count slightly improved and is up to 0.32, his d-dimer is still significantly elevated but improved from yesterday's value and is down to 26.03, his LDH, CRP and BMP levels are still pending, he was retested for COVID-19 yesterday and was found to be negative. On 08/11/2021 patient seen in follow-up on medical surgical floor, he remains on Airvo at 60 L and FiO2 of 85%, he is breathing comfortably, his pulse ox on those settings is around 88-89%, patient states overall he feels good, he sitting up in the recliner, he is watching TV, his been able to use the bedside commode, no coughing, no chest discomfort. He agreed to start the Baricitinib last night, he received his first 2 doses last night and this morning. He continues on Decadron 6 mg twice daily, Lovenox 60 mg twice daily. Today's labs have been reviewed showing CBC that is unremarkable, his lymphocyte count is 0.3, relatively stable, d-dimer is improving and is down to 15.9, serum sodium is 132, potassium is 5.0, chloride is 94, CO2 is 32, BUN was 19, creatinine 0.80. AST is 54, ALT is 52, alk phos is 57. Patient was retested with COVID-19 PCR test and was found to be negative, he can be removed from isolation and he can have visitors at this time. His last chest x-ray yesterday showing low lung volumes with bilateral multifocal and confluent mid to lower lung opacities greatest in the periphery consistent with COVID-19 infection. Clinically he has remained stable, without worsening dyspnea. On 08/12/2021 patient seen in follow-up on medical surgical floor. Despite being on Airvo at 55 L and FiO2 of 67% patient is breathing comfortably, he is ambulating short distances in the room, he states he still feels good, no worsening dyspnea, FiO2 requirements did improve, with a flow of 55 and FiO2 of 64% from previously requiring 60 L/m and FiO2 of 90%. Lung sounds reveal minimal crackles at the left base, minimal cough, no fever, blood pressure is been stable. No new chest x-ray today, patient continues on Baricitinib, Decadron, Lovenox. He continues on COVID-19 vitamins. Today's labs have been reviewed, his CBC is unremarkable, his lymphocyte count is improving and is up to 0.5, today's d-dimer is still pending, on yesterday's labs d-dimer was improving and was down to 15.9, sodium is 136, potassium is 5.0, chloride is 96, CO2 31, BUN is 18 creatinine 0.7. Objective - Vital Signs Vital signs: Vital Signs Temp 97.9 F 08/12/21 06:00 Pulse 53 L 08/12/21 06:00 Resp 18 08/12/21 02:00 BP 114/72 08/12/21 06:00 Pulse Ox 96 08/12/21 13:01 Intake & Output 08/11/21 08/12/21 08/12/21 18:59 06:59 18:59 Output Total 3000 Balance -3000 Output: Urine 3000 Other: # Voids 4 - Exam GENERAL EXAM: Alert, very pleasant, 50-year-old white male, on Airvo at 55 L and FiO2 of 64% with a pulse ox of 85-89%, comfortable in no apparent distress. HEAD: Normocephalic/atraumatic. EYES: Normal reaction of pupils, equal size. Conjunctiva pink, sclera white. NOSE: Clear with pink turbinates. THROAT: No erythema or exudates. NECK: No masses, no JVD, no thyroid enlargement, no adenopathy. CHEST: No chest wall deformity. Symmetrical expansion. LUNGS: Equal air entry with bibasilar crackles CVS: Regular rate and rhythm, normal S1 and S2, no gallops, no murmurs, no rubs ABDOMEN: Soft, nontender. No hepatosplenomegaly, normal bowel sounds, no guarding or rigidity. EXTREMITIES: No clubbing, no edema, no cyanosis, 2+ pulses and upper and lower extremities. MUSCULOSKELETAL: Muscle strength and tone normal. SPINE: No scoliosis or deformity SKIN: No rashes CENTRAL NERVOUS SYSTEM: Alert and oriented -3. No focal deficits, tone is normal in all 4 extremities. PSYCHIATRIC: Alert and oriented -3. Appropriate affect. Intact judgment and insight. - Labs CBC & Chem 7: 08/12/21 06:32 08/12/21 06:32 Labs: Abnormal Lab Results - Last 24 Hours (Table) 08/12/21 08/12/21 Range/Units 06:32 06:32 Lymphocytes # 0.5 L (1.0-4.8) k/uL Sodium 136 L (137-145) mmol/L Chloride 96 L (98-107) mmol/L Carbon Dioxide 31 H (22-30) mmol/L Glucose 104 H (74-99) mg/dL ALT 63 H (4-49) U/L Assessment and Plan Plan: #1. acute COVID 19 related pneumonia. The patient has bilateral pulmonary infiltrates and the patient has crackles in the mid and lower lung is bilaterally and the patient is currently on 7 L of oxygen by nasal cannula. Symptoms started less than a week ago and the patient progressed rather rapidly. The patient's initial symptoms were mainly GI related as the patient presented with diarrhea and it seems that the diarrhea is subsiding at this point in time. patient was started on the Remdesivir on 08/03/2021. Patient's hypoxemia has progressed, patient is currently on 15 L high flow nasal cannula and nonreb reather, and was started on Baricitinib however he is refusing it stating it is an experimental treatment. Patient agreed to start Baricitinib on 08/10/2021, and patient is currently on Airvo at 55 L and FiO2 of 65%, and his FiO2 requirements have slightly improved over last 2 days. #2. acute hypoxic respiratory failure, worsened, and patient is currently on Airvo at 60 L and FiO2 of 85% #3. acute diarrhea, related to COVID 19, resolved #4. Anion gap metabolic acidosis secondary to diarrhea, improved, diarrhea has resolved #5. acute hypovolemic hyponatremia secondary to diarrhea, resolved #6. leukopenia and thrombocytopenia, likely related to COVID 19 infection, resolved #7. hypertension Plan: Remains on Airvo at 55 L and FiO2 of 65%, patient's FiO2 requirements have improved Clinically he remains very comfortable, denies worsening dyspnea Continues on Baricitinib Continue Decadron 6 mg twice daily, Lovenox at 60 mg twice daily, No worsening dyspnea or hypoxia Vital signs are stable, no fever or chills Patient is quite active, denies any distress We'll continue to follow his inflammatory markers and d-dimer Once FiO2 requirements are down to 5 L and less we'll consider discharge home I performed a history & physical examination of the patient and discussed their management with my nurse practitioner, Elsa Godinez. I reviewed the nurse practitioner's note and agree with the documented findings and plan of care. Lung sounds are positive for basilar rales throughout the lung meyer. The findings and the impression was discussed with the patient. I attest to the documentation by the nurse practitioner. Time with Patient: Less than 30
--- NOTE | 2021-08-12 15:33 | P.PN ---
Subjective Progress Note Date: 08/12/21 50-year-old male came in with the complaints of diarrhea which started about 4-5 days ago. Patient denied any significant fever patient doesn't have any fever here. Patient is found to be hypoxic and patient is presently on 7 L of oxygen. Patient is also found to be hyponatremic from diarrhea. Patient is found to have positive COVID-19 PCR. Patient d-dimer is 0.5 to does have elevated inflammatory markers along with elevated liver enzymes. Patient was not vaccinated for Covid 19 08/04/2021 Patient is seen in follow up this morning maintained on 10L HF and pulmonary and ID following. Patient is receiving Remdesivir and also maintained on IV dexamethasone, lovenox, vitamin and zinc supplements and will continue. Weaning FI02 as tolerated. Encouraged increased activity as tolerated. Will order incentive spirometer and follow up chest xray in the am. Patient having some difficulty in sleeping and requesting a sleep aid. 08/05/2021 Patient is seen in follow up this morning and currently sitting up at the window in no acute distress. Pulmonary following and continued on Remdesivir along with dexamethasone, lovenox and vitamin and zinc supplements. Currently maintained on 8L HF and dyspneic with exertion although states no worsening. Patient eager to go home. Ddimer elevated at 2 and will increase lovenox to bid. Repeat labs ordered. 08/06/2021 Patient is seen and evaluated in follow up today and respiratory has worsened and now requiring 15L HF along with 15 L non-rebreather. Patient is continued on IV dexamathasone, lovenox bid, vitamin and zinc supplements and continued of Remdesivir with pulmonary and ID following. D-dimer also elevated and 9.91 compared to 2.37 yesterday. bilateral venous doppler and CTA ordered to evaluate for any DVT or PE. Encouraged increased activity as tolerated and continue with IS use. Chest xray today shows stable bilateral patchy infiltrates. Will increase lovenox to bid 08/07/2021 Patient sitting up in chair. Continues on 15L NRB and 15L High flow cannula with an oxygen saturation of 93 to 94%. Patient continues on IV decadron, lovenox BID, vitamins, zinc. Followed closely by pulmonary. No acute events overnight, patients main concern is ongoing shortness of breath. Temp 99.4, heart rate 79, blood pressure 148/81, respirations 24. Labs today: WBC 4.8, sodium 134, chloride 97, potassium 4.4. Glucose in the 130s. Prognosis remains guarded, continue with all other supportive care. 08/08/2021 Patient evaluated today sitting up in the chair. He continues on a 15L NRB and 15l HF cannula, oxygen saturation today is 93%. No acute events overnight. Blood pressure 124/84 he is febrile low-grade 99.9 axillary, heart rate 80. He reports increasing cough and sputum production. He is being followed closely by ID and pulmonary services. There are no labs today, repeat them tomorrow. Continues on vitamin C, vitamin D3, Decadron placed day, Lovenox twice a day, zinc. He completed a course of IV remdesivir. 08/09/2021 Patient is seen in follow up this morning and continues on 15L HF NC along with non-rebreather. Patient d-dimer continues to elevate and was 32.36 today. Patient continues on Lovenox 60mg twice daily and will continue. Patient has completed remdesivir and was started on Baricitinib although is refusing this at this time. Patient states his has been on many anti-rheumatic medications for RA and feels this drug is experimental and prefers not to take this. Pulmonary following closely. Patient is extremely anxious about wanting to see his and will discuss with management about the protocol. Repeat covid testing was negative. 08/10/2021 Patient is seen and evaluated this morning and continues on 15 L along with nonrebreather and maintaining oxygen saturations of 85%. Patient denies any worsening shortness of breath and continues to increase activity as tolerated. Pulmonary following closely and patient is being placed on Airvo with an oxygen flow rate of 60 and an FiO2 of 85% and will continue to wean as tolerated and monitor for improvements in aeration. Patient was started on Baricitinib and has refused and was discontinued. Patient did complete remdesivir and is maint ained on Lovenox along with dexamethasone and vitamin and zinc supplements and will continue. Patient also continues with Lovenox twice a day and d-dimer slightly improved at 26.03 today. Potassium elevated at 5.6 and will give a dose of Kayexalate and repeat labs. 08/11/2021 Patient is seen and evaluated this morning and follow-up clinically looks well although respiratory status patient remains on Airvo and has titrated slightly down to a flow rate of 60 and FiO2 of 85 and maintaining 87-94% on these settings. Encouraged increased activity as tolerated along with continued incentive spirometer use. Pulmonary and infectious disease following and patient has been started on Baricitinib and is now agreeable to take and took his dose yesterday night and will continue with Lovenox twice daily along with vitamin and zinc supplements and patient is maintained on IV dexamethasone. 08/12/2021 Patient is seen this morning with no acute overnight issues. Patient continues on Airvo and respiratory has been steadily titrating as tolerated and patient is doing well. Patient was maintained on a flow rate of 55 and FiO2 of 64 and tolerating oxygen saturations of 96%. Attempt to wean as tolerated. Continue to encourage activity as tolerated and incentive spirometer and patient states he has been doing this along with exercises and does not feel worsening shortness of breath. Will repeat a.m. chest x-ray. Labs: WBC is 7.8, hemoglobin is 15.5, platelets are 177, sodium is 136, potassium is 5.0, creatinine is 0.77, liver functions trending down. REVIEW OF SYSTEMS: CONSTITUTIONAL: No fever, no malaise, no fatigue. CARDIOVASCULAR: No chest pain, no palpitations PULMONARY: reports continued shortness of breath although no worse and feels he is improving. GASTROINTESTINAL: no nausea or vomiting noted NEUROLOGICAL: No headaches, no weakness, no numbness. GENITOURINARY: Denies any burning, frequency, or urgency. Active Medications Acetaminophen (Acetaminophen Tab 325 Mg Tab) 650 mg PO Q4HR PRN PRN Reason: Fever>101 Last Admin: 08/04/21 09:06 Dose: 650 mg Documented by: Albuterol Sulfate (Albuterol Hfa Inhaler) 2 puff INHALATION RT-Q6H PRN PRN Reason: Shortness Of Breath Or Wheezing Last Admin: 08/11/21 16:41 Dose: 2 puff Documented by: Ascorbic Acid (Ascorbic Acid 500 Mg Tab) 1,000 mg PO DAILY [facility] Last Admin: 08/12/21 09:17 Dose: 1,000 mg Documented by: Baricitinib (Baricitinib 2 Mg Tablet) 4 mg PO DAILY@1800 [facility] Stop: 08/23/21 18:01 Last Admin: 08/11/21 16:21 Dose: 4 mg Documented by: Cholecalciferol (Cholecalciferol 25 Mcg (1000 Iu) Tablet) 50 mcg PO DAILY [facility] Last Admin: 08/12/21 09:16 Dose: 50 mcg Documented by: Dexamethasone Sodium Phosphate (Dexamethasone Sod Phosphate 10 Mg/Ml 1 Ml Vial) 6 mg IVP BID [facility] Last Admin: 08/12/21 09:16 Dose: 6 mg Documented by: Enoxaparin Sodium (Enoxaparin 60 Mg/0.6 Ml Syringe) 60 mg SQ BID [facility] Last Admin: 08/12/21 09:17 Dose: 60 mg Documented by: Famotidine (Famotidine 20 Mg Tab) 40 mg PO DAILY [facility] Last Admin: 08/12/21 09:17 Dose: 40 mg Documented by: Multivitamins (Multivitamins, Thera 1 Each Tab) 1 each PO DAILY [facility] Last Admin: 08/12/21 09:16 Dose: 1 each Documented by: Naloxone HCl (Naloxone 0.4 Mg/Ml 1 Ml Vial) 0.2 mg IV Q2M PRN PRN Reason: Opioid Reversal Zinc Sulfate (Zinc Sulfate 220 Mg Cap) 220 mg PO DAILY [facility] Last Admin: 08/12/21 09:16 Dose: 220 mg Documented by: Zolpidem Tartrate (Zolpidem 10 Mg Tab) 10 mg PO HS PRN PRN Reason: Insomnia PHYSICAL EXAMINATION: GENERAL: The patient is alert and oriented x3, no acute respiratory distress. Well developed, well nourished. On Airvo and titrating down HEENT: Pupils are round and equally reacting to light. EOMI. No scleral icterus. No conjunctival pallor. Normocephalic, atraumatic. No pharyngeal erythema. No thyromegaly. CARDIOVASCULAR: S1 and S2 present. No murmurs, rubs, or gallops. PULMONARY: Chest is clear to auscultation, with some coarse rhonchi and crackles noted at the right base, that appears to be improving ABDOMEN: Soft, nontender, nondistended, normoactive bowel sounds. No palpable organomegaly. MUSCULOSKELETAL: No joint swelling or deformity. EXTREMITIES: No cyanosis, clubbing, or pedal edema. NEUROLOGICAL: Gross neurological examination did not reveal any focal deficits. SKIN: No rashes. Assessment: -COVID-19 pneumonia with acute hypoxic respiratory failure secondary to COVID- 19 pneumonia -elevated d-dimer without evidence of PE or DVT as noted on imaging -Diarrhea secondary to COVID-19 infection, improved -Hyponatremia hypovolemic hyponatremia secondary to diarrhea, improved -Hyperkalemia, improved and will continue low potassium diet -Elevated liver enzymes secondary to systemic inflammatory response from COVID- 19, trending down -DVT prophylaxis: Lovenox BID -Full code Plan: Continue with current medications. Wean FI02 as tolerated. Respiratory status guarded and maintained on Airvo. Weaning nicely and will attempt nasal cannula again with respiratory and pulmonary following closely. Patient denies any feelings of worsening shortness of breath. Continue lovenox 60 BID along with IV dexamethasone and covid supplements and monitor closely. Pulmonary following and ID. Encourage IS and activity as tolerated. Repeat am labs and chest x-ray in the morning. Remdesivir has been completed. Baricitinib has been initiated as patient is now agreeable to take. Will continue to monitor closely. Prognosis guarded. Objective - Vital Signs Vital signs: Vital Signs Temp 97.9 F 08/12/21 06:00 Pulse 53 L 08/12/21 06:00 Resp 18 08/12/21 02:00 BP 114/72 08/12/21 06:00 Pulse Ox 98 08/12/21 06:00 Intake & Output 08/11/21 08/12/21 08/12/21 18:59 06:59 18:59 Output Total 3000 Balance -3000 Output: Urine 3000 Other: # Voids 4 - Labs CBC & Chem 7: 08/12/21 06:32 08/12/21 06:32 Labs: Abnormal Lab Results - Last 24 Hours (Table) 08/12/21 08/12/21 Range/Units 06:32 06:32 Lymphocytes # 0.5 L (1.0-4.8) k/uL Sodium 136 L (137-145) mmol/L Chloride 96 L (98-107) mmol/L Carbon Dioxide 31 H (22-30) mmol/L Glucose 104 H (74-99) mg/dL ALT 63 H (4-49) U/L
[2021-08-12] MEDS: BARICITINIB 2 MG TABLET PO SCH (16:58)
[2021-08-12] MEDS: ALBUTEROL HFA INHALER INHALATION PRN (22:13)
--- NOTE | 2021-08-13 01:19 | PN ---
PROGRESS NOTE DATE OF SERVICE: 08/12/2021 REASON FOR FOLLOWUP: COVID-19 pneumonia. INTERVAL HISTORY: The patient is afebrile. The patient is breathing more comfortably, requiring less supplemental oxygen. Patient denies having any chest pain. No worsening cough or sputum production. No abdominal pain, no diarrhea. PHYSICAL EXAMINATION: Blood pressure is 122/82 with a pulse of 71, temperature 98.2. He is 96% on 50% FiO2. General description is a middle-aged male lying in bed in no distress. Respiratory system: Unlabored breathing, decreased intensity of breath sounds. No wheeze. Heart S1, S2. Regular rate and rhythm. Abdomen soft, no tenderness. LAB: Hemoglobin is 15.5, white count 7.8, creatinine 0.77. DIAGNOSTIC IMPRESSION AND PLAN: Patient with acute COVID-19 pneumonia, slowly clinically improving. The patient is currently covered with baricitinib, dexamethasone, Lovenox, zinc and ascorbic acid along with respiratory support and monitor clinical course closely. MMODL / IJN: [id number] /
[2021-08-13 07:21] LABS: Glucose,Whole Blood 106 mg/dL (75-99)
[2021-08-13 07:41] LABS: Basophils % (A) 0 %; Eosinophils % (A) 0 %; HCT 43.8 % (39.0-53.0); HGB 14.3 gm/dL (13.0-17.5); Lymphocytes # (A) 0.4 k/uL (1.0-4.8); Lymphocytes % (A) 6 %; MCHC 32.7 g/dL (31.0-37.0); MCV 100.8 fL (80.0-100.0); Mean Platelet Volume 8.6; Monocytes # (A) 0.2 k/uL (0-1.0); Monocytes % (A) 3 %; Neutrophils # (A) 6.2 k/uL (1.3-7.7); Neutrophils % (A) 90 %; Platelet Count 179 k/uL (150-450); RBC 4.34 m/uL (4.30-5.90); RDW 12.4 % (11.5-15.5); WBC 6.9 k/uL (3.8-10.6)
[2021-08-13 07:55] LABS: ALT 68 U/L (4-49); AST 46 U/L (17-59); African American GFR (CKD) >90 (>60 ml/min/1.73 sqM); Albumin 3.3 g/dL (3.5-5.0); Alkaline Phosphatase 50 U/L (38-126); Anion Gap 10 mmol/L; Blood Urea Nitrogen 18 mg/dL (9-20); Calcium 8.7 mg/dL (8.4-10.2); Carbon Dioxide 24 mmol/L (22-30); Chloride 97 mmol/L (98-107); Globulin 3.2 g/dL; Glucose 94 mg/dL (74-99); Non-African American GFR(CKD) >90 (>60 ml/min/1.73 sqM); Potassium 4.5 mmol/L (3.5-5.1); Sodium 131 mmol/L (137-145); Total Bilirubin 0.8 mg/dL (0.2-1.3); Total Protein 6.5 g/dL (6.3-8.2)
--- NOTE | 2021-08-13 07:55 | XR ---
EXAMINATION TYPE: XR chest 1V portable DATE OF EXAM: 08/13/2021 HISTORY: Shortness of breath. COMPARISON: 08/09/2021 TECHNIQUE: Single view of the chest is submitted. FINDINGS: Demonstrated are scattered senescent parenchymal change. Patchy perihilar and basilar infiltrates noted. The heart is stable. Hilar and mediastinal structures are within normal limits. Degenerative changes are seen of the dorsal spine. IMPRESSION: 1. Patchy perihilar and basilar infiltrates noted.
[2021-08-13] MEDS: FAMOTIDINE 20 MG TAB PO SCH (09:31)
[2021-08-13] MEDS: CHOLECALCIFEROL 25 MCG (1000 IU) TABLET PO SCH (09:31)
[2021-08-13] MEDS: ZINC SULFATE 220 MG CAP PO SCH (09:31)
[2021-08-13] MEDS: MULTIVITAMINS, THERA 1 EACH TAB PO SCH (09:31)
[2021-08-13] MEDS: ASCORBIC ACID 500 MG TAB PO SCH (09:32)
[2021-08-13] MEDS: DEXAMETHASONE SOD PHOSPHATE 10 MG/ML 1 ML VIAL IVP SCH ×2 (09:32→21:58)
[2021-08-13] MEDS: ENOXAPARIN 60 MG/0.6 ML SYRINGE SQ SCH ×2 (09:33→21:58)
--- NOTE | 2021-08-13 11:55 | P.PN ---
Subjective Progress Note Date: 08/13/21 Pleasant 50-year-old male patient with known history of hypertension otherwise negative medical history, started getting sick approximately 5 days ago. Around , the patient started having GI symptoms of diarrhea and he was unable to keep anything him. The patient became progressively more weak and lethargic and in the same time he started developing shortness of breath. He went to an outpatient clinic with the patient was found to be hypoxic and he was directed to us for further care. The patient immediately checked positive for COVID 19. He is not vaccinated. His white cell count is at 2.2 with a hemoglobin of 14.3 with a platelet count of 131. His sodium was at 126 consistent with his underlying diarrhea. He had a component of non-anion gap metabolic acidosis secondary to diarrhea and his serum bicarb was at 19. LDH level was 1651 and he did have some mild transaminitis. Troponins are negative. Pro-calcitonin level was 0.1 and a CRP level is at 8.3. The patient was s tarted on Decadron. The patient was also started on IV fluids. He is also on Decadron for DVT prophylaxis. Currently is on 7 L of oxygen by nasal cannula. Note that he started off with 4 L and his oxygen requirements progressed and currently is on 7 L. No altered mentation. On 08/04/2021 patient seen in follow-up on medical surgical floor, he is awake and alert, in no acute distress, he is currently at 10 L of oxygen and this is an increase in his FiO2 since yesterday however clinical patient states she feels better, breathing easier, his sat on 10 L and 93%. He's been ambulating somewhat to the bathroom, tolerates activity well. No fever or chills, no chest discomfort, occasional cough, no phlegm production. He was started on Remdesivir, today's day 2 of treatment, he continues on Decadron 6 mg twice a day, and prophylactic Lovenox in addition to multivitamins. He is on point of the same at a rate of 100 mL per hour, his oral intake is good. Today's labs have been reviewed, his white count is 5.5, hemoglobin is 13.5, platelets are 145, improving, d-dimer is normal at 0.45, electrolytes and renal profile are unremarkable, his inflammatory markers are improving, his LDH is down to 495 from 1240 and yesterday's labs, and CRP is down to 8.0, his pro-calcitonin level was negative at 0.13 On 08/05/2021 patient seen in follow-up on medical surgical floor, clinically patient looks good, looks to be in no acute distress, awake and alert, oriented 3, sitting up in a recliner, although she does still require high flow oxygen currently at 8 L and pulse ox is 91%, denies any worsening dyspnea, he does have occasional dry nonproductive cough, afebrile, blood pressure has been stable. His diarrhea has resolved, his labs today have been reviewed, his serum sodium level is improving on today's labs, and is now within normal limits at 137, dressing electrolytes and renal profile were unremarkable. His LDH has increased on today's labs at the 1275, and CRP is 5.6, improved, his potassium level was -0.13 a few days ago, his white count is 5.56 on yesterday's labs, and hemoglobin is 13.5. he continues on Decadron 6 mg IV push twice daily, Remdesivir, he is on prophylactic dose Lovenox 40 daily. No nausea or vomiting, tolerating oral intake. On 08/09/2031 patient seen in follow-up on medical surgical floor, he is resting comfortably in bed, appears to be in no acute distress, he is on 15 L high flow oxygen with pulse ox of 91-92%. Although requiring high flow oxygen he does not appear to be in any acute distress, today's chest x-ray showing low lung volumes and bilateral multifocal and confluent mid to lower lung opacities consistent with his history of COVID-19 infection, no significant change compared to most recent chest x-ray. He continues on baricitinib which was started yesterday on 08/08/2021, and Decadron 6 mg twice daily, prophylactic Lovenox at 60 mg twice daily. Patient had a recent CT angiogram of the chest on 08/06/2021 that showed no evidence of pulmonary embolism and no evidence of DVT on lower extremity Dopplers, however his d-dimer continues to trend up and is up to 32.3 on today's labs, his white count is 4.8, hemoglobin is 13.7, lymphocyte count remains low at 0.20, electrolytes and renal profile are unremarkable, his inflammatory markers relatively stable compared to yesterday's labs at 639, but overall improved since admission, CRP is 7.9, slightly improved from yesterday. He was retested for COVID-19 and was found to be negative. On 08/10/2021 patient seen in follow-up on medical surgical floor, she remains on 15 L per high flow nasal cannula in addition to 100% nonrebreather mask, he is fairly asymptomatic, however his pulse ox is only 84%. He does have persistent mild cough, no phlegm production, no complaints of chest discomfort, she has been get not to the bedside commode, tolerates activity fairly well. He is awake and alert, oriented 3, no signs of any altered mentation, his chest x- ray from yesterday showed low lung volumes with bilateral multifocal and confluent mid to lower lung opacities, stable, consistent with his history of COVID-19 infection. he has been refusing Baricitinib, stating that it is experimental treatment. He is still excepting Decadron, and his Lovenox is 60 mg twice daily which was increased yesterday, he continues on COVID-19 vitamins, no nausea vomiting or diarrhea, he is tolerating oral intake. Today's labs have been reviewed showing white blood cell count of 5.5, hemoglobin is 14.0, platelet count is 163, his lymphocyte count slightly improved and is up to 0.32, his d-dimer is still significantly elevated but improved from yesterday's value and is down to 26.03, his LDH, CRP and BMP levels are still pending, he was retested for COVID-19 yesterday and was found to be negative. On 08/11/2021 patient seen in follow-up on medical surgical floor, he remains on Airvo at 60 L and FiO2 of 85%, he is breathing comfortably, his pulse ox on those settings is around 88-89%, patient states overall he feels good, he sitting up in the recliner, he is watching TV, his been able to use the bedside commode, no coughing, no chest discomfort. He agreed to start the Baricitinib last night, he received his first 2 doses last night and this morning. He continues on Decadron 6 mg twice daily, Lovenox 60 mg twice daily. Today's labs have been reviewed showing CBC that is unremarkable, his lymphocyte count is 0.3, relatively stable, d-dimer is improving and is down to 15.9, serum sodium is 132, potassium is 5.0, chloride is 94, CO2 is 32, BUN was 19, creatinine 0.80. AST is 54, ALT is 52, alk phos is 57. Patient was retested with COVID-19 PCR test and was found to be negative, he can be removed from isolation and he can have visitors at this time. His last chest x-ray yesterday showing low lung volumes with bilateral multifocal and confluent mid to lower lung opacities greatest in the periphery consistent with COVID-19 infection. Clinically he has remained stable, without worsening dyspnea. On 08/12/2021 patient seen in follow-up on medical surgical floor. Despite being on Airvo at 55 L and FiO2 of 67% patient is breathing comfortably, he is ambulating short distances in the room, he states he still feels good, no worsening dyspnea, FiO2 requirements did improve, with a flow of 55 and FiO2 of 64% from previously requiring 60 L/m and FiO2 of 90%. Lung sounds reveal minimal crackles at the left base, minimal cough, no fever, blood pressure is been stable. No new chest x-ray today, patient continues on Baricitinib, Decadron, Lovenox. He continues on COVID-19 vitamins. Today's labs have been reviewed, his CBC is unremarkable, his lymphocyte count is improving and is up to 0.5, today's d-dimer is still pending, on yesterday's labs d-dimer was improving and was down to 15.9, sodium is 136, potassium is 5.0, chloride is 96, CO2 31, BUN is 18 creatinine 0.7. On 08/13/2021 patient seen in follow-up on medical surgical floor, he remains on Airvo, currently at 50 L and FiO2 of 60%, his pulse ox is ranging between 87- 91%, he is breathing comfortably, lung sounds are essentially clear to auscultation, no crackles, no rhonchi, no wheezing, no fever or chills, no complaints of chest discomfort, patient has been up and ambulating in the room, he has been doing some exercises, tolerates activity well. He states generally she feels very good. Other than getting bored. His chest x-ray today showing stable patchy perihilar and basilar infiltrates. Today's labs have been reviewed, his white count is 6.9, hemoglobin is 14.3, his d-dimer is improving and is down to 10.57, patient remains on Lovenox 40 mg twice daily, see sodium is 131, potassium is 4.5, chloride is 97, CO2 is 24 BUN is 18 creatinine 0.70. Objective - Vital Signs Vital signs: Vital Signs Temp 98.2 F 08/13/21 10:00 Pulse 79 08/13/21 10:00 Resp 21 08/13/21 10:00 BP 123/79 08/13/21 10:00 Pulse Ox 87 L 08/13/21 10:00 Intake & Output 08/12/21 08/13/21 08/13/21 18:59 06:59 18:59 Other: # Voids 5 4 # Bowel Movements 2 - Exam GENERAL EXAM: Alert, very pleasant, 50-year-old white male, on Airvo at 50 L and FiO2 of 60% with a pulse ox of 87-93%, comfortable in no apparent distress. HEAD: Normocephalic/atraumatic. EYES: Normal reaction of pupils, equal size. Conjunctiva pink, sclera white. NOSE: Clear with pink turbinates. THROAT: No erythema or exudates. NECK: No masses, no JVD, no thyroid enlargement, no adenopathy. CHEST: No chest wall deformity. Symmetrical expansion. LUNGS: Equal air entry with no crackles, no rhonchi CVS: Regular rate and rhythm, normal S1 and S2, no gallops, no murmurs, no rubs ABDOMEN: Soft, nontender. No hepatosplenomegaly, normal bowel sounds, no guarding or rigidity. EXTREMITIES: No clubbing, no edema, no cyanosis, 2+ pulses and upper and lower extremities. MUSCULOSKELETAL: Muscle strength and tone normal. SPINE: No scoliosis or deformity SKIN: No rashes CENTRAL NERVOUS SYSTEM: Alert and oriented -3. No focal deficits, tone is normal in all 4 extremities. PSYCHIATRIC: Alert and oriented -3. Appropriate affect. Intact judgment and insight. - Labs CBC & Chem 7: 08/13/21 06:51 08/13/21 06:51 Labs: Abnormal Lab Results - Last 24 Hours (Table) 08/13/21 08/13/21 08/13/21 Range/Units 06:51 06:51 06:51 MCV 100.8 H (80.0-100.0) fL Lymphocytes # 0.4 L (1.0-4.8) k/uL D-Dimer 10.57 H (<0.60) mg/L FEU Sodium 131 L (137-145) mmol/L Chloride 97 L (98-107) mmol/L POC Glucose (mg/dL) (75-99) mg/dL ALT 68 H (4-49) U/L Albumin 3.3 L (3.5-5.0) g/dL 08/13/21 Range/Units 07:20 MCV (80.0-100.0) fL Lymphocytes # (1.0-4.8) k/uL D-Dimer (<0.60) mg/L FEU Sodium (137-145) mmol/L Chloride (98-107) mmol/L POC Glucose (mg/dL) 106 H (75-99) mg/dL ALT (4-49) U/L Albumin (3.5-5.0) g/dL Assessment and Plan Plan: #1. acute COVID 19 related pneumonia. The patient has bilateral pulmonary infiltrates and the patient has crackles in the mid and lower lung is bilaterally and the patient is currently on 7 L of oxygen by nasal cannula. Symptoms started less than a week ago and the patient progressed rather rapidly. The patient's initial symptoms were mainly GI related as the patient presented with diarrhea and it seems that the diarrhea is subsiding at this point in time. patient was started on the Remdesivir on 08/03/2021. Patient's hypoxemia has progressed, patient is currently on 15 L high flow nasal cannula and nonrebreather, and was started on Baricitinib however he is refusing it stating it is an experimental treatment. Patient agreed to start Baricitinib on 08/10/2021, and patient is currently on Airvo at 55 L and FiO2 of 65%, and his FiO2 requirements have slightly improved over last 2 days. #2. acute hypoxic respiratory failure, worsened, and patient is currently on Airvo at 60 L and FiO2 of 85% #3. acute diarrhea, related to COVID 19, resolved #4. Anion gap metabolic acidosis secondary to diarrhea, improved, diarrhea has resolved #5. acute hypovolemic hyponatremia secondary to diarrhea, resolved #6. leukopenia and thrombocytopenia, likely related to COVID 19 infection, resolved #7. hypertension Plan: Clinically patient has remained stable, FiO2 requirements are improving Remains on Airvo at 50 L and FiO2 of 60%, patient's FiO2 requirements have improved Clinically he remains very comfortable, denies worsening dyspnea Continues on Baricitinib Continue Decadron 6 mg twice daily, Lovenox at 60 mg twice daily, Vital signs are stable, no fever or chills Today's chest x-ray shows stable perihilar patchy infiltrates Clinically improving Will follow I performed a history & physical examination of the patient and discussed their management with my nurse practitioner, Elsa Godinez. I reviewed the nurse practitioner's note and agree with the documented findings and plan of care. Lung sounds are positive for basilar rales throughout the lung meyer. The findings and the impression was discussed with the patient. I attest to the documentation by the nurse practitioner. Time with Patient: Less than 30
[2021-08-13] MEDS: ALBUTEROL HFA INHALER INHALATION PRN ×2 (12:40→16:07)
--- NOTE | 2021-08-13 12:42 | P.PN ---
Subjective Progress Note Date: 08/13/21 50-year-old male came in with the complaints of diarrhea which started about 4-5 days ago. Patient denied any significant fever patient doesn't have any fever here. Patient is found to be hypoxic and patient is presently on 7 L of oxygen. Patient is also found to be hyponatremic from diarrhea. Patient is found to have positive COVID-19 PCR. Patient d-dimer is 0.5 to does have elevated inflammatory markers along with elevated liver enzymes. Patient was not vaccinated for Covid 19 08/04/2021 Patient is seen in follow up this morning maintained on 10L HF and pulmonary and ID following. Patient is receiving Remdesivir and also maintained on IV dexamethasone, lovenox, vitamin and zinc supplements and will continue. Weaning FI02 as tolerated. Encouraged increased activity as tolerated. Will order incentive spirometer and follow up chest xray in the am. Patient having some difficulty in sleeping and requesting a sleep aid. 08/05/2021 Patient is seen in follow up this morning and currently sitting up at the window in no acute distress. Pulmonary following and continued on Remdesivir along with dexamethasone, lovenox and vitamin and zinc supplements. Currently maintained on 8L HF and dyspneic with exertion although states no worsening. Patient eager to go home. Ddimer elevated at 2 and will increase lovenox to bid. Repeat labs ordered. 08/06/2021 Patient is seen and evaluated in follow up today and respiratory has worsened and now requiring 15L HF along with 15 L non-rebreather. Patient is continued on IV dexamathasone, lovenox bid, vitamin and zinc supplements and continued of Remdesivir with pulmonary and ID following. D-dimer also elevated and 9.91 compared to 2.37 yesterday. bilateral venous doppler and CTA ordered to evaluate for any DVT or PE. Encouraged increased activity as tolerated and continue with IS use. Chest xray today shows stable bilateral patchy infiltrates. Will increase lovenox to bid 08/07/2021 Patient sitting up in chair. Continues on 15L NRB and 15L High flow cannula with an oxygen saturation of 93 to 94%. Patient continues on IV decadron, lovenox BID, vitamins, zinc. Followed closely by pulmonary. No acute events overnight, patients main concern is ongoing shortness of breath. Temp 99.4, heart rate 79, blood pressure 148/81, respirations 24. Labs today: WBC 4.8, sodium 134, chloride 97, potassium 4.4. Glucose in the 130s. Prognosis remains guarded, continue with all other supportive care. 08/08/2021 Patient evaluated today sitting up in the chair. He continues on a 15L NRB and 15l HF cannula, oxygen saturation today is 93%. No acute events overnight. Blood pressure 124/84 he is febrile low-grade 99.9 axillary, heart rate 80. He reports increasing cough and sputum production. He is being followed closely by ID and pulmonary services. There are no labs today, repeat them tomorrow. Continues on vitamin C, vitamin D3, Decadron placed day, Lovenox twice a day, zinc. He completed a course of IV remdesivir. 08/09/2021 Patient is seen in follow up this morning and continues on 15L HF NC along with non-rebreather. Patient d-dimer continues to elevate and was 32.36 today. Patient continues on Lovenox 60mg twice daily and will continue. Patient has completed remdesivir and was started on Baricitinib although is refusing this at this time. Patient states his has been on many anti-rheumatic medications for RA and feels this drug is experimental and prefers not to take this. Pulmonary following closely. Patient is extremely anxious about wanting to see his and will discuss with management about the protocol. Repeat covid testing was negative. 08/10/2021 Patient is seen and evaluated this morning and continues on 15 L along with nonrebreather and maintaining oxygen saturations of 85%. Patient denies any worsening shortness of breath and continues to increase activity as tolerated. Pulmonary following closely and patient is being placed on Airvo with an oxygen flow rate of 60 and an FiO2 of 85% and will continue to wean as tolerated and monitor for improvements in aeration. Patient was started on Baricitinib and has refused and was discontinued. Patient did complete remdesivir and is maint ained on Lovenox along with dexamethasone and vitamin and zinc supplements and will continue. Patient also continues with Lovenox twice a day and d-dimer slightly improved at 26.03 today. Potassium elevated at 5.6 and will give a dose of Kayexalate and repeat labs. 08/11/2021 Patient is seen and evaluated this morning and follow-up clinically looks well although respiratory status patient remains on Airvo and has titrated slightly down to a flow rate of 60 and FiO2 of 85 and maintaining 87-94% on these settings. Encouraged increased activity as tolerated along with continued incentive spirometer use. Pulmonary and infectious disease following and patient has been started on Baricitinib and is now agreeable to take and took his dose yesterday night and will continue with Lovenox twice daily along with vitamin and zinc supplements and patient is maintained on IV dexamethasone. 08/12/2021 Patient is seen this morning with no acute overnight issues. Patient continues on Airvo and respiratory has been steadily titrating as tolerated and patient is doing well. Patient was maintained on a flow rate of 55 and FiO2 of 64 and tolerating oxygen saturations of 96%. Attempt to wean as tolerated. Continue to encourage activity as tolerated and incentive spirometer and patient states he has been doing this along with exercises and does not feel worsening shortness of breath. Will repeat a.m. chest x-ray. 08/13/2021 Patient is seen this morning continues on Airvo and titrating as tolerated. Current settings are a flow rate of 15 and FiO2 of 60%. Patient is afebrile. Pulmonary following closely and patient is maintained on subcutaneous Lovenox twice daily along with IV dexamethasone, vitamin and zinc supplements, and Baricitinib. Patient completed Remdesivir last week and continued to have respiratory decline. Patient initially refused Baricitinib as it was experimen blair although has now been agreeable to it and is continuing to take this. Encouraged incentive spirometer and increased oral intake especially protein along with following a low potassium diet. Encouraged increased activity as tolerated. Chest x-ray today shows patchy perihilar and basilar infiltrates noted area Labs: Sodium slightly low at 131 today, potassium 4.5, BUN is 18, creatinine 0.7, d- dimer is 10.57 CBC 6.9, hemoglobin 14.3, MCV elevated at 100.8, platelets are 179 REVIEW OF SYSTEMS: CONSTITUTIONAL: No fever, no malaise, no fatigue. CARDIOVASCULAR: No chest pain, no palpitations PULMONARY: reports continued shortness of breath although no worse and feels he is improving. GASTROINTESTINAL: no nausea or vomiting noted NEUROLOGICAL: No headaches, no weakness, no numbness. GENITOURINARY: Denies any burning, frequency, or urgency. Active Medications Acetaminophen (Acetaminophen Tab 325 Mg Tab) 650 mg PO Q4HR PRN PRN Reason: Fever>101 Last Admin: 08/04/21 09:06 Dose: 650 mg Documented by: Albuterol Sulfate (Albuterol Hfa Inhaler) 2 puff INHALATION RT-Q6H PRN PRN Reason: Shortness Of Breath Or Wheezing Last Admin: 08/12/21 22:13 Dose: 2 puff Documented by: Ascorbic Acid (Ascorbic Acid 500 Mg Tab) 1,000 mg PO DAILY [facility] Last Admin: 08/13/21 09:32 Dose: 1,000 mg Documented by: Baricitinib (Baricitinib 2 Mg Tablet) 4 mg PO DAILY@1800 [facility] Stop: 08/23/21 18:01 Last Admin: 08/12/21 16:58 Dose: 4 mg Documented by: Cholecalciferol (Cholecalciferol 25 Mcg (1000 Iu) Tablet) 50 mcg PO DAILY [facility] Last Admin: 08/13/21 09:31 Dose: 50 mcg Documented by: Dexamethasone Sodium Phosphate (Dexamethasone Sod Phosphate 10 Mg/Ml 1 Ml Vial) 6 mg IVP BID [facility] Last Admin: 08/13/21 09:32 Dose: 6 mg Documented by: Enoxaparin Sodium (Enoxaparin 60 Mg/0.6 Ml Syringe) 60 mg SQ BID [facility] Last Admin: 08/13/21 09:33 Dose: 60 mg Documented by: Famotidine (Famotidine 20 Mg Tab) 40 mg PO DAILY [facility] Last Admin: 08/13/21 09:31 Dose: 40 mg Documented by: Multivitamins (Multivitamins, Thera 1 Each Tab) 1 each PO DAILY [facility] Last Admin: 08/13/21 09:31 Dose: 1 each Documented by: Naloxone HCl (Naloxone 0.4 Mg/Ml 1 Ml Vial) 0.2 mg IV Q2M PRN PRN Reason: Opioid Reversal Zinc Sulfate (Zinc Sulfate 220 Mg Cap) 220 mg PO DAILY [facility] Last Admin: 08/13/21 09:31 Dose: 220 mg Documented by: Zolpidem Tartrate (Zolpidem 10 Mg Tab) 10 mg PO HS PRN PRN Reason: Insomnia PHYSICAL EXAMINATION: GENERAL: The patient is alert and oriented x3, no acute respiratory distress. Well developed, well nourished. On Airvo and titrating down HEENT: Pupils are round and equally reacting to light. EOMI. No scleral icterus. No conjunctival pallor. Normocephalic, atraumatic. No pharyngeal erythema. No thyromegaly. CARDIOVASCULAR: S1 and S2 present. No murmurs, rubs, or gallops. PULMONARY: Chest is clear to auscultation, with some coarse rhonchi and faint crackles noted at the right base, that appears to be improving ABDOMEN: Soft, nontender, nondistended, normoactive bowel sounds. No palpable organomegaly. MUSCULOSKELETAL: No joint swelling or deformity. EXTREMITIES: No cyanosis, clubbing, or pedal edema. NEUROLOGICAL: Gross neurological examination did not reveal any focal deficits. SKIN: No rashes. Assessment: -COVID-19 pneumonia with acute hypoxic respiratory failure secondary to COVID- 19 pneumonia -elevated d-dimer without evidence of PE or DVT as noted on imaging -Diarrhea secondary to COVID-19 infection, improved -Hyponatremia hypovolemic hyponatremia secondary to diarrhea -Hyperkalemia, improved and will continue low potassium diet -Elevated liver enzymes secondary to systemic inflammatory response from COVID- 19, trending down -DVT prophylaxis: Lovenox BID -Full code Plan: Continue with current medications. Wean FI02 as tolerated. Respiratory status guarded and maintained on Airvo. Weaning nicely and will continue to wean as tolerated with respiratory and pulmonary following closely. Patient denies any feelings of worsening shortness of breath. Continue lovenox 60 BID along with IV dexamethasone and covid supplements and monitor closely. Pulmonary following and ID. Encourage IS and activity as tolerated. Sodium slightly low at 131 and encouraged oral intake. Remdesivir has been completed. Baricitinib has been initiated as patient is now agreeable to take. Will repeat a.m. labs. Will continue to monitor closely. Prognosis guarded. Objective - Vital Signs Vital signs: Vital Signs Temp 97.4 F L 08/13/21 06:00 Pulse 61 08/13/21 06:00 Resp 18 08/13/21 06:00 BP 105/66 08/13/21 06:00 Pulse Ox 91 L 08/13/21 06:00 Intake & Output 08/12/21 08/13/21 08/13/21 18:59 06:59 18:59 Other: # Voids 5 4 # Bowel Movements 2 - Labs CBC & Chem 7: 08/13/21 06:51 08/13/21 06:51 Labs: Abnormal Lab Results - Last 24 Hours (Table) 08/13/21 08/13/21 08/13/21 Range/Units 06:51 06:51 06:51 MCV 100.8 H (80.0-100.0) fL Lymphocytes # 0.4 L (1.0-4.8) k/uL D-Dimer 10.57 H (<0.60) mg/L FEU Sodium 131 L (137-145) mmol/L Chloride 97 L (98-107) mmol/L POC Glucose (mg/dL) (75-99) mg/dL ALT 68 H (4-49) U/L Albumin 3.3 L (3.5-5.0) g/dL 08/13/21 Range/Units 07:20 MCV (80.0-100.0) fL Lymphocytes # (1.0-4.8) k/uL D-Dimer (<0.60) mg/L FEU Sodium (137-145) mmol/L Chloride (98-107) mmol/L POC Glucose (mg/dL) 106 H (75-99) mg/dL ALT (4-49) U/L Albumin (3.5-5.0) g/dL
[2021-08-13] MEDS ORDERED: SODIUM CHLORIDE 0.65% NASAL SPRAY 44 ML BTL NASAL PRN (15:36)
[2021-08-13] MEDS: BARICITINIB 2 MG TABLET PO SCH (17:47)
--- NOTE | 2021-08-13 23:41 | PN ---
PROGRESS NOTE DATE OF SERVICE: 08/13/2021 REASON FOR FOLLOWUP: COVID-19 pneumonia. INTERVAL HISTORY: Patient is afebrile. The patient is breathing more comfortably. FiO2 is currently down to 40%. Denies having chest pain. No worsening cough or sputum production. No abdominal pain or diarrhea. PHYSICAL EXAMINATION: Blood pressure 115/76, pulse of 73, temperature of 98.1. He is 92% on 40% FiO2. General description is a middle-aged male up in the bed in no distress. Respiratory system: Unlabored breathing, decreased breath sounds in the base, with no wheeze. Heart S1, S2. Regular rate and rhythm. Abdomen: Soft, no tenderness. LABORATORY DATA: Hemoglobin 14.1, white count 6.9, creatinine 0.1. DIAGNOSTIC IMPRESSION AND PLAN: Patient with acute COVID-19 pneumonia in this patient who did have slow clinical improvement. FiO2 is currently down. To continue with the baricitinib, dexamethasone, Lovenox, zinc and ascorbic acid an monitor clinical course closely. MMODL / IJN: [id number] /
[2021-08-14] MEDS: ALBUTEROL HFA INHALER INHALATION PRN ×2 (08:05→12:05)
[2021-08-14] MEDS: DEXAMETHASONE SOD PHOSPHATE 10 MG/ML 1 ML VIAL IVP SCH ×2 (08:31→20:43)
[2021-08-14] MEDS: ZINC SULFATE 220 MG CAP PO SCH (08:32)
[2021-08-14] MEDS: CHOLECALCIFEROL 25 MCG (1000 IU) TABLET PO SCH (08:32)
[2021-08-14] MEDS: FAMOTIDINE 20 MG TAB PO SCH (08:32)
[2021-08-14] MEDS: MULTIVITAMINS, THERA 1 EACH TAB PO SCH (08:32)
[2021-08-14] MEDS: ASCORBIC ACID 500 MG TAB PO SCH (08:32)
[2021-08-14] MEDS: ENOXAPARIN 60 MG/0.6 ML SYRINGE SQ SCH (08:32)
[2021-08-14 11:06] LABS: ALT 69 U/L (4-49); AST 41 U/L (17-59); African American GFR (CKD) >90 (>60 ml/min/1.73 sqM); Albumin 3.6 g/dL (3.5-5.0); Albumin/Globulin Ratio 1.2; Alkaline Phosphatase 52 U/L (38-126); Anion Gap 10 mmol/L; Blood Urea Nitrogen 17 mg/dL (9-20); Calcium 8.9 mg/dL (8.4-10.2); Carbon Dioxide 23 mmol/L (22-30); Chloride 98 mmol/L (98-107); Globulin 3.1 g/dL; Glucose 144 mg/dL (74-99); Non-African American GFR(CKD) >90 (>60 ml/min/1.73 sqM); Potassium 4.4 mmol/L (3.5-5.1); Sodium 131 mmol/L (137-145); Total Bilirubin 0.7 mg/dL (0.2-1.3); Total Protein 6.7 g/dL (6.3-8.2)
[2021-08-14 11:24] LABS: Basophils % (A) 0 %; Eosinophils % (A) 1 %; HCT 43.8 % (39.0-53.0); HGB 14.8 gm/dL (13.0-17.5); Lymphocytes # (A) 0.3 k/uL (1.0-4.8); Lymphocytes % (A) 3 %; MCH 33.4 pg (25.0-35.0); MCHC 33.7 g/dL (31.0-37.0); Mean Platelet Volume 8.2; Monocytes # (A) 0.2 k/uL (0-1.0); Monocytes % (A) 3 %; Neutrophils # (A) 7.8 k/uL (1.3-7.7); Neutrophils % (A) 93 %; Platelet Count 168 k/uL (150-450); RBC 4.42 m/uL (4.30-5.90); RDW 12.6 % (11.5-15.5); WBC 8.4 k/uL (3.8-10.6)
[2021-08-14] MEDS: BARICITINIB 2 MG TABLET PO SCH (17:01)
[2021-08-14 17:38] VITALS: BP 113/86; PULSE 70; RESP 17; TEMP 97.7
--- NOTE | 2021-08-14 18:07 | P.PN ---
Subjective Progress Note Date: 08/14/21 Pleasant 50-year-old male patient with known history of hypertension otherwise negative medical history, started getting sick approximately 5 days ago. Around , the patient started having GI symptoms of diarrhea and he was unable to keep anything him. The patient became progressively more weak and lethargic and in the same time he started developing shortness of breath. He went to an outpatient clinic with the patient was found to be hypoxic and he was directed to us for further care. The patient immediately checked positive for COVID 19. He is not vaccinated. His white cell count is at 2.2 with a hemoglobin of 14.3 with a platelet count of 131. His sodium was at 126 consistent with his underlying diarrhea. He had a component of non-anion gap metabolic acidosis secondary to diarrhea and his serum bicarb was at 19. LDH level was 1651 and he did have some mild transaminitis. Troponins are negative. Pro-calcitonin level was 0.1 and a CRP level is at 8.3. The patient was started on Decadron. The patient was also started on IV fluids. He is also on Decadron for DVT prophylaxis. Currently is on 7 L of oxygen by nasal cannula. Note that he started off with 4 L and his oxygen requirements progressed and currently is on 7 L. No altered mentation. On 08/04/2021 patient seen in follow-up on medical surgical floor, he is awake and alert, in no acute distress, he is currently at 10 L of oxygen and this is an increase in his FiO2 since yesterday however clinical patient states she feels better, breathing easier, his sat on 10 L and 93%. He's been ambulating somewhat to the bathroom, tolerates activity well. No fever or chills, no chest discomfort, occasional cough, no phlegm production. He was started on Remdesivir, today's day 2 of treatment, he continues on Decadron 6 mg twice a day, and prophylactic Lovenox in addition to multivitamins. He is on point of the same at a rate of 100 mL per hour, his oral intake is good. Today's labs have been reviewed, his white count is 5.5, hemoglobin is 13.5, platelets are 145, improving, d-dimer is normal at 0.45, electrolytes and renal profile are unremarkable, his inflammatory markers are improving, his LDH is down to 495 from 1240 and yesterday's labs, and CRP is down to 8.0, his pro-calcitonin level was negative at 0.13 On 08/05/2021 patient seen in follow-up on medical surgical floor, clinically patient looks good, looks to be in no acute distress, awake and alert, oriented 3, sitting up in a recliner, although she does still require high flow oxygen currently at 8 L and pulse ox is 91%, denies any worsening dyspnea, he does have occasional dry nonproductive cough, afebrile, blood pressure has been stable. His diarrhea has resolved, his labs today have been reviewed, his serum sodium level is improving on today's labs, and is now within normal limits at 137, dressing electrolytes and renal profile were unremarkable. His LDH has increased on today's labs at the 1275, and CRP is 5.6, improved, his potassium level was -0.13 a few days ago, his white count is 5.56 on yesterday's labs, and hemoglobin is 13.5. he continues on Decadron 6 mg IV push twice daily, Remdesivir, he is on prophylactic dose Lovenox 40 daily. No nausea or vomiting, tolerating oral intake. 08/06/2021, the patient feels well. Clinically, the patient is feeling well. He reports improvement in his symptoms. Nevertheless, his oxidation is been worse the patient is having high oxygen requirements and the patient is currently on 100% nonrebreather facemask in addition to 15 L nasal cannula. Note that the patient was only on 8 L yesterday. No nausea. No vomiting. No diarrhea. His diarrhea has subsided. His white cell count remains at 5.9, he is d-dimer is at 9.9 which is higher compared to yesterday. The sodium is at 139, potassium is 4.2, glucose of 135, LFTs show some mild transaminitis, LDH level is lower at 561 compared to yesterday with a CRP level of tics 0.1. The patient was receiving Decadron and the patient was receiving Remdesivir. He was started on Remdesivir treatment on 08/04/2021 and today's day #3 of treatment. He remains on Lovenox for DVT prophylaxis and is receiving 40 mg subcu every 12 hours. We'll check Doppler of the lower extremities. We'll check CT angiogram. The patient is seen today 08/07/2021 in follow-up on the regular medical floor. He is currently sitting up in a chair at the bedside. Awake and alert in no acute distress. He states he is feeling quite well. He still however requiring 15 L high per nasal cannula plus a nonrebreather mask. He is afebrile. Hemodynamically stable. CT angiogram revealed no evidence of pulmonary embolism. There is diffuse ground glass opacities and infiltrates consistent with COVID-19 pneumonia. White count 4.8. Hemoglobin 13.0. Lymphocytes 0.1. Sodium 134. Potassium 4.4. Creatinine 0.70. He is continued on Decadron, Lovenox, vitamin supplements. Day number 5 of Remdesivir. The patient seen today 08/08/2021 in follow-up on the regular medical floor. He is seen just getting back from the bathroom and he is quite dyspneic on minimal exertion. He was still on 15 L high flow but without the nonrebreather mask and his O2 saturation was in the mid 50s but did come back up into the low 90s after 5 minutes of rest and nonrebreather back on. No new labs today.v He has completed his course of Remdesivir. Continued on Decadron, Lovenox, vitamin supplements. The patient is seen today 08/14/2021 in follow-up on the regular medical floor. He is awake and alert in no acute distress. He's been up ambulating in his room. He is quite anxious to go home. He is down to 5 L high flow nasal c annula with O2 saturation at 90%. He's been afebrile. Hemodynamically stable. Blood cultures revealed no growth. White count 8.4. Hemoglobin 14.8. Lymphocytes 0.3. Sodium 131. Potassium 4.4. Creatinine 0.75. AST 41. ALT 69. He is continued on Baricitinib, Decadron, Lovenox. Remains on vitamin supplements. Objective - Vital Signs Vital signs: Vital Signs Temp 97.7 F 08/14/21 16:57 Pulse 70 08/14/21 16:57 Resp 17 08/14/21 16:57 BP 113/86 08/14/21 16:57 Pulse Ox 92 L 08/14/21 16:57 Intake & Output 1208/14/21 08/14/21 18:59 06:59 18:59 Other: # Voids 2 1 - Exam GENERAL EXAM: Alert, very pleasant, 50-year-old male patient, up in a chair at the bedside, on 5 L nasal cannula, fairly comfortable in no apparent distress. HEAD: Normocephalic/atraumatic. EYES: Normal reaction of pupils, equal size. Conjunctiva pink, sclera white. NOSE: Clear with pink turbinates. THROAT: No erythema or exudates. NECK: No masses, no JVD, no thyroid enlargement, no adenopathy. CHEST: No chest wall deformity. Symmetrical expansion. LUNGS: Equal air entry with bibasilar crackles CVS: Regular rate and rhythm, normal S1 and S2, no gallops, no murmurs, no rubs ABDOMEN: Soft, nontender. No hepatosplenomegaly, normal bowel sounds, no guarding or rigidity. EXTREMITIES: No clubbing, no edema, no cyanosis, 2+ pulses and upper and lower extremities. MUSCULOSKELETAL: Muscle strength and tone normal. SPINE: No scoliosis or deformity SKIN: No rashes CENTRAL NERVOUS SYSTEM: No focal deficits, tone is normal in all 4 extremities. PSYCHIATRIC: Alert and oriented -3. Appropriate affect. Intact judgment and insight. - Labs CBC & Chem 7: 08/14/21 09:52 08/14/21 09:52 Labs: Abnormal Lab Results - Last 24 Hours (Table) 08/14/21 08/14/21 Range/Units 09:52 09:52 Neutrophils # 7.8 H (1.3-7.7) k/uL Lymphocytes # 0.3 L (1.0-4.8) k/uL Sodium 131 L (137-145) mmol/L Glucose 144 H (74-99) mg/dL ALT 69 H (4-49) U/L Assessment and Plan Assessment: 1 acute COVID 19 related pneumonia. The patient has bilateral pulmonary infiltrates and the patient has crackles in the mid and lower lung is bilaterally and the patient is currently down to 5 L of oxygen by nasal cannula. Patient was started on the Remdesivir on 08/03/2021 completed his course. Patient agreed to start Baricitinib on 08/10/2021, and his FiO2 requirements have improved over last 2 days. 2 acute hypoxic respiratory failure currently on 5 L of oxygen by nasal cannula 3 acute diarrhea, improving and this is related to COVID 19 4 metabolic acidosis secondary to diarrhea 5 acute hypovolemic hyponatremia secondary to diarrhea 6 leukopenia and thrombocytopenia, likely related to COVID 19 infection. The patient hematologic profile has improved. The white cell count is up to 5.9. The platelet count is up to 184. 7 hypertension Plan The patient was seen and evaluated Currently stable on 5 L nasal cannula He is quite adamant about going home Home oxygen will be arranged Eliquis 5 mg twice a day for 2 weeks Follow-up closely with his PCP Follow-up in our office in 3-4 weeks I, the cosigning physician, performed a history & physical examination of the patient. Lungs sounds the posterior bases. Maintaining good O2 saturations in the 90s on 5 L nasal cannula. I discussed the assessment and plan of care with my nurse practitioner, Tarsha Washington. I attest to the above note as dictated by her.
[2021-08-14] MEDS ORDERED: APIXABAN 5 MG TAB PO SCH (21:00)
--- NOTE | 2021-08-15 00:35 | P.DS ---
Providers Date of admission: 08/02/21 18:29 Attending physician: Mike May MD Consults: 08/02/21 18:30 Consult Physician Routine Consulting Provider: Janae Hernández Consult Reason/Comments: covid 19 pneumonia Do you want consulting provider notified?: Yes, Notify in am 08/02/21 18:31 Consult Physician Routine Consulting Provider: Debbie Peralta Consult Reason/Comments: covid 19 pneumonia. hypoxic respiratory failure Do you want consulting provider notified?: Yes Primary care physician: Stated None Hospital Course: Diagnoses: -COVID-19 pneumonia with acute hypoxic respiratory failure secondary to COVID- 19 pneumonia -elevated d-dimer without evidence of PE or DVT , increased inflammatory markers secondary to COVID-19 infection -Elevated liver enzymes secondary to COVID-19, trending down Hospital course: 50-year-old male with no significant past medical history and he does not follow up with PCP. He Presents on 08/02 with respiratory symptoms of coughing, dyspnea and hypoxia with saturation of oxygen at 86% on room air found to have bilateral Covid pneumonia with associated hypoxia and increased inflammatory markers LDH and C-reactive protein and d-dimer With no evidence of DVT or PE on Doppler and CTA of the chest respectively. Patient was placed on Lovenox 60 mg twice a day, also dexamethasone 6 mg, vitamin C, vitamin D, zinc and Baricitinib , with pulmonary team are following the patient closely and manage his respiratory illness. Patient showed interval improvement and his oxygen requirement went down from 4 L/m down to 5 L today. He was seen moving freely and briskly in the room with no respiratory difficulty, his breathing quietly. Fully awake and oriented, denies any other complaints and he was so eager to be discharged today, he told staff that his father has 2 days ago and he wanted to leave. Pulmonary team cleared him for discharge with recommendation for Eliquis for 2 weeks, free coupon for Eliquis provided for the patient upon discharge. Also patient discharged on dexamethasone tapered dose as he has prolonged course, multiple vitamins. Patient discharged with home oxygen delivered at bedside prior to discharge Problems and management plan were discussed with the patient and he verbalized understanding and acceptance Patient was found stable and can be discharged home however he needs follow-up as an outpatient. Patient was instructed to follow up with PCP within one week and patient agrees, patient told me he has no obesity but he is planning to follow-up with Dr. Middleton, contact information provided for him Also patient was instructed to follow up with server Dr. Coronel 3-4 weeks and he agrees Physical exam Gen: patient is a AAOx3, no distress CVS: S1-S2, RRR, no murmur Lungs: B/L CTA, no wheezing Abdomen: soft, no distention, no tenderness, positive bowel sounds Extremity: no leg edema or induration Time spent more than 35 minutes Patient Condition at Discharge: Serious Plan - Discharge Summary New Discharge Prescriptions: New Zinc Sulfate [Orazinc] 220 mg PO DAILY #30 cap Famotidine [Pepcid] 40 mg PO DAILY #30 tab Cholecalciferol [Vitamin D3 (25 Mcg = 1000 Iu)] 50 mcg PO DAILY #60 tablet dexAMETHasone ORAL [Hexadrol] 2 mg PO DIRECTED #18 tablet Apixaban [Eliquis] 5 mg PO BID 14 Days #28 tab Albuterol Inhaler [Ventolin Hfa Inhaler] 2 puff INHALATION RT-Q6H PRN #1 each PRN Reason: Shortness Of Breath Or Wheezing Continue Echinacea 500 mg PO DAILY Ascorbic Acid [Vitamin C] 1,000 mg PO DAILY #30 tab Discontinued Multivit-Min/FA/Lycopen/Lutein [Centrum Silver Men Tablet] 1 tab PO DAILY Zinc 50 mg PO DAILY Discharge Medication List Echinacea 500 mg PO DAILY 08/02/21 [History] Albuterol Inhaler [Ventolin Hfa Inhaler] 2 puff INHALATION RT-Q6H PRN #1 each 08/14/21 [Rx] Apixaban [Eliquis] 5 mg PO BID 14 Days #28 tab 08/14/21 [Rx] Ascorbic Acid [Vitamin C] 1,000 mg PO DAILY #30 tab 08/14/21 [Rx] Cholecalciferol [Vitamin D3 (25 Mcg = 1000 Iu)] 50 mcg PO DAILY #60 tablet 08/14/21 [Rx] Famotidine [Pepcid] 40 mg PO DAILY #30 tab 08/14/21 [Rx] Zinc Sulfate [Orazinc] 220 mg PO DAILY #30 cap 08/14/21 [Rx] dexAMETHasone ORAL [Hexadrol] 2 mg PO DIRECTED #18 tablet 08/14/21 [Rx] Follow up Appointment(s)/Referral(s): Josseline Blake MD [STAFF PHYSICIAN] - 3 Weeks (server) Moreno Middleton MD [REFERRING] - 1 Week None,Stated [Primary Care Provider] - 1-2 days Patient Instructions/Handouts: Coronavirus Disease 2019 (COVID-19) Activity/Diet/Wound Care/Special Instructions: heart healthy diet activity is restricted till you see your doctor Discharge Disposition: HOME SELF-CARE
--- NOTE | 2021-08-15 01:39 | PN ---
PROGRESS NOTE DATE OF SERVICE: 08/14/2021 REASON FOR FOLLOWUP: COVID-19 pneumonia. INTERVAL HISTORY: Patient is afebrile. The patient is breathing comfortably. The patient denies having any chest pain. No shortness of breath or cough. No abdominal pain. No diarrhea. Overall feeling better. He is waiting for outpatient before discharge. EXAMINATION: Blood pressure 113/86, pulse of 70, temperature is 97.7. He is 92% on 5 L nasal cannula. General description is a middle-aged male up in the bed in no distress. Respiratory system: Unlabored breathing, coarse breath sounds bilaterally. No wheeze. Heart S1, S2. Regular rate and rhythm. Abdomen soft. No tenderness. LABS: Hemoglobin is 14.8, white count 8.4, creatinine 0.75. DIAGNOSTIC IMPRESSION/PLAN: Patient with acute COVID-19 pneumonia in this patient who seems to have shown overall clinical improvement. The patient currently covered with Baricitinib, dexamethasone, Lovenox, zinc and ascorbic acid along with respiratory support. Monitor clinical course closely. MMODL / IJN: [id number] /
== END 2021-08-14 23:32 | disposition home or self-care (01) | DRG 177 ==
LOC: EC 16:50 → 4SSUR 18:29
PROVIDERS: ADMIT Internal Medicine; ATTEND Internal Medicine
PROC: XW0DXM6 Introduction of Baricitinib into Mouth and Pharynx, External Approach, New Technology Group 6 (ICD-10-PCS; principal; 2021-08-03)
PROC: XW033E5 Introduction of Remdesivir Anti-infective into Peripheral Vein, Percutaneous Approach, New Technology Group 5 (ICD-10-PCS; 2021-08-03)
PROC: 5A0955A Assistance with Respiratory Ventilation, Greater than 96 Consecutive Hours, High Flow/Velocity Cannula (ICD-10-PCS; 2021-08-03)
DX: U07.1 COVID-19 (principal); J12.82 Pneumonia due to coronavirus disease 2019; J96.01 Acute respiratory failure with hypoxia; A08.39 Other viral enteritis; E87.1 Hypo-osmolality and hyponatremia; E87.2 Acidosis; E87.8 Other disorders of electrolyte and fluid balance, not elsewhere classified; M06.9 Rheumatoid arthritis, unspecified; D69.59 Other secondary thrombocytopenia; I10 Essential (primary) hypertension; E87.70 Fluid overload, unspecified; E86.0 Dehydration; D72.810 Lymphocytopenia; R74.01 Elevation of levels of liver transaminase levels; E86.1 Hypovolemia; E87.5 Hyperkalemia; Z79.899 Other long term (current) drug therapy
CPT/HCPCS: 36415; 71045; 71275; 80048; 80053; 82728; 83605; 83615; 83735; 84145; 84484; 85025; 85379; 85610; 85730; 86140; 87040; 87635; 93005; 93970; 94640; 94760; 96365; 99285